=== PATIENT | male | born 1965 | race African-American/Black ===

== ENCOUNTER 2020-04-28 16:08 | Inpatient (IN) | payer OTHER ==
[2020-04-28 16:49] VITALS: BMI 37.8
[2020-04-28] MEDS ORDERED: BISMUTH SUBSALICYLATE 524 MG/30 ML UD PO PRN (17:18)
[2020-04-28] MEDS ORDERED: MENTHOL/PHENOL 1 EACH UD MM PRN (17:18)
[2020-04-28] MEDS ORDERED: MAGNESIUM CITRATE 300 ML BOTTLE PO PRN (17:18)
[2020-04-28] MEDS ORDERED: NICOTINE POLACRILEX 2 MG GUM BUC PRN (17:18)
[2020-04-28] MEDS ORDERED: METHADONE HCL 10 MG TABLET (FOR DETOX USE ONLY) PO ONE (17:18)
[2020-04-28] MEDS ORDERED: cloNIDine HCL 0.1 MG TABLET PO PRN (17:18)
[2020-04-28] MEDS ORDERED: ACETAMINOPHEN 325 MG TABLET (FP) PO PRN ×2 (17:18)
[2020-04-28] MEDS ORDERED: ONDANSETRON *ODT* 4 MG TABLET SL PRN (17:18)
[2020-04-28] MEDS ORDERED: MAGNESIUM HYDROX 2400MG/30ML ORAL SUSPENSION 30 ML CUP PO PRN (17:18)
[2020-04-28] MEDS ORDERED: ALBUTEROL SO4 HFA INHALER IH PRN (17:24)
[2020-04-28] MEDS: hydrOXYzine PAMOATE 25 MG CAPSULE (FP) PO PRN (21:13)
[2020-04-28] MEDS: THIAMINE HCL 100 MG TABLET (FP) PO SCH (21:13)
[2020-04-28] MEDS: MELATONIN 5 MG TABLETS PO SCH (21:16)
[2020-04-29] MEDS ORDERED: METHADONE HCL 5 MG TABLET (FOR DETOX USE ONLY) ONE (09:24)
[2020-04-29] MEDS ORDERED: METHADONE HCL 10 MG TABLET (FOR DETOX USE ONLY) ONE (09:24)
[2020-04-29 09:48] LABS: HEMATOCRIT 41.9 % (35.4-49); HEMOGLOBIN 14.2 GM/dL (11.7-16.9); MCH 31.2 pg (25.7-33.7); MEAN CELL VOLUME 91.8 fl (80-96); MEAN PLT VOLUME 9.2 fl (7.5-11.1); PLATELET COUNT 213 K/MM3 (134-434); RBC 4.57 M/mm3 (4.00-5.60); RDW 15.9 % (11.9-15.9)
[2020-04-29 09:50] LABS: POTASSIUM 4.3 mmol/L (3.5-5.1)
[2020-04-29] MEDS ORDERED: METHADONE (DETOX) 20 MG, METHADONE (DETOX) 5 MG PO ONE (10:00)
[2020-04-29 10:13] LABS: ALBUMIN 3.8 g/dl (3.4-5.0); CALCIUM 8.9 mg/dL (8.5-10.1)
[2020-04-29 10:14] LABS: BLOOD UREA NITROGEN 11.8 mg/dL (7-18)
[2020-04-29 10:17] LABS: CREATININE 1.3 mg/dL (0.55-1.3)
[2020-04-29 10:18] LABS: BILIRUBIN,TOTAL 0.5 mg/dL (0.2-1)
[2020-04-29 10:20] LABS: TOT PROT 7.4 g/dl (6.4-8.2)
[2020-04-29] MEDS: NICOTINE 14 MG/24 HOURS TOPICAL PATCH TD SCH (10:31)
[2020-04-29] MEDS: PANTOPRAZOLE 40 MG TABLET PO SCH (10:31)
[2020-04-29] MEDS: PRENATAL VITAMINS W/ FOLIC ACID TABLET (FP) PO SCH (10:31)
[2020-04-29] MEDS: QUEtiapine FUMARATE 200 MG TABLET PO SCH ×2 (10:32→22:04)
[2020-04-29] MEDS: MAG HYDROX/AL HYDROX/SIMETH 30 ML UNIT-DOSE CUP PO PRN ×2 (11:15→22:06)
[2020-04-29] MEDS: THIAMINE HCL 100 MG TABLET (FP) PO SCH (22:04)
[2020-04-29] MEDS: MELATONIN 5 MG TABLETS PO SCH (22:07)
[2020-04-29] MEDS: IBUPROFEN 400 MG TABLET (FP) PO PRN (23:18)
[2020-04-29] MEDS: METHOCARBAMOL 500 MG TABLET PO PRN (23:18)
[2020-04-30] MEDS ORDERED: METHADONE HCL 10 MG TABLET (FOR DETOX USE ONLY) PO ONE (10:00)
[2020-04-30] MEDS: QUEtiapine FUMARATE 200 MG TABLET PO SCH ×2 (10:08→22:29)
[2020-04-30] MEDS: PRENATAL VITAMINS W/ FOLIC ACID TABLET (FP) PO SCH (10:09)
[2020-04-30] MEDS: PANTOPRAZOLE 40 MG TABLET PO SCH (10:09)
[2020-04-30] MEDS: NICOTINE 14 MG/24 HOURS TOPICAL PATCH TD SCH (10:09)
[2020-04-30] MEDS: METHOCARBAMOL 500 MG TABLET PO PRN (17:43)
[2020-04-30] MEDS: THIAMINE HCL 100 MG TABLET (FP) PO SCH (22:29)
[2020-04-30] MEDS: MELATONIN 5 MG TABLETS PO SCH (22:32)
[2020-04-30] MEDS: IBUPROFEN 400 MG TABLET (FP) PO PRN (22:32)
[2020-05-01] MEDS ORDERED: METHADONE HCL 10 MG TABLET (FOR DETOX USE ONLY) ONE (09:11)
[2020-05-01] MEDS ORDERED: METHADONE HCL 5 MG TABLET (FOR DETOX USE ONLY) ONE (09:11)
[2020-05-01] MEDS ORDERED: METHADONE (DETOX) 10 MG, METHADONE (DETOX) 5 MG PO ONE (10:00)
[2020-05-01] MEDS: QUEtiapine FUMARATE 200 MG TABLET PO SCH ×2 (10:15→22:15)
[2020-05-01] MEDS: PANTOPRAZOLE 40 MG TABLET PO SCH (10:16)
[2020-05-01] MEDS: NICOTINE 14 MG/24 HOURS TOPICAL PATCH TD SCH (10:16)
[2020-05-01] MEDS: PRENATAL VITAMINS W/ FOLIC ACID TABLET (FP) PO SCH (10:16)
[2020-05-01] MEDS: MELATONIN 5 MG TABLETS PO SCH (22:15)
[2020-05-01] MEDS: THIAMINE HCL 100 MG TABLET (FP) PO SCH (22:15)
[2020-05-01] MEDS: METHOCARBAMOL 500 MG TABLET PO PRN (22:17)
[2020-05-01] MEDS: IBUPROFEN 400 MG TABLET (FP) PO PRN (22:17)
[2020-05-02] MEDS: hydrOXYzine PAMOATE 25 MG CAPSULE (FP) PO PRN (05:05)
[2020-05-02] MEDS ORDERED: METHADONE HCL 10 MG TABLET (FOR DETOX USE ONLY) PO ONE (10:00)
[2020-05-02] MEDS: QUEtiapine FUMARATE 200 MG TABLET PO SCH ×2 (10:17→22:14)
[2020-05-02] MEDS: NICOTINE 14 MG/24 HOURS TOPICAL PATCH TD SCH (10:17)
[2020-05-02] MEDS: PANTOPRAZOLE 40 MG TABLET PO SCH (10:17)
[2020-05-02] MEDS: PRENATAL VITAMINS W/ FOLIC ACID TABLET (FP) PO SCH (10:17)
[2020-05-02] MEDS: THIAMINE HCL 100 MG TABLET (FP) PO SCH (22:14)
[2020-05-02] MEDS: METHOCARBAMOL 500 MG TABLET PO PRN (22:15)
[2020-05-02] MEDS: IBUPROFEN 400 MG TABLET (FP) PO PRN (22:15)
[2020-05-02] MEDS: MELATONIN 5 MG TABLETS PO SCH (22:17)
[2020-05-03] MEDS ORDERED: METHADONE HCL 5 MG TABLET (FOR DETOX USE ONLY) PO ONE (06:00)
[2020-05-03 09:32] VITALS: BP 142/84; PULSE 100; TEMP 96.2
== END 2020-05-03 09:04 | disposition home or self-care (01) | DRG 773 ==
LOC: YASAS 16:08 → Y6N 17:16
PROVIDERS: ADMIT Allergy & Immunology; ATTEND Allergy & Immunology
PROC: HZ2ZZZZ Detoxification Services for Substance Abuse Treatment (ICD-10-PCS; principal; 2020-04-28)
DX: F11.23 Opioid dependence with withdrawal (principal); F10.230 Alcohol dependence with withdrawal, uncomplicated; F14.20 Cocaine dependence, uncomplicated; F17.210 Nicotine dependence, cigarettes, uncomplicated; F31.9 Bipolar disorder, unspecified; F19.24 Other psychoactive substance dependence with psychoactive substance-induced mood disorder; F41.9 Anxiety disorder, unspecified; Z21 Asymptomatic human immunodeficiency virus [HIV] infection status; J45.909 Unspecified asthma, uncomplicated; K21.9 Gastro-esophageal reflux disease without esophagitis; M16.0 Bilateral primary osteoarthritis of hip; R73.9 Hyperglycemia, unspecified; M54.5 Low back pain; G89.29 Other chronic pain; E66.9 Obesity, unspecified; Z68.37 Body mass index [BMI] 37.0-37.9, adult; Z99.3 Dependence on wheelchair; Z99.89 Dependence on other enabling machines and devices; Z88.8 Allergy status to other drugs, medicaments and biological substances; Z91.013 Allergy to seafood; Z91.018 Allergy to other foods
CPT/HCPCS: 36415; 80053; 82947; 82962; 85027; 86780; 93005; 93010; C9803; U0003

== ENCOUNTER 2021-07-23 16:16 | Inpatient (IN) | payer OTHER ==
[2021-07-23 17:44] VITALS: BMI 38.0
[2021-07-23] MEDS ORDERED: MENTHOL/PHENOL 1 EACH UD MM PRN (21:32)
[2021-07-23] MEDS ORDERED: MAGNESIUM CITRATE 300 ML BOTTLE PO PRN (21:32)
[2021-07-23] MEDS ORDERED: ACETAMINOPHEN 325 MG TABLET (FP) PO PRN ×2 (21:32)
[2021-07-23] MEDS ORDERED: chlordiazePOXIDE HCL 25 MG CAPSULE PO PRN (21:32)
[2021-07-23] MEDS ORDERED: NICOTINE POLACRILEX 2 MG GUM BUC PRN (21:32)
[2021-07-23] MEDS ORDERED: LOPERAMIDE HCL 2 MG CAPSULE PO PRN (21:32)
[2021-07-23] MEDS ORDERED: MAG HYDROX/AL HYDROX/SIMETH 30 ML UNIT-DOSE CUP PO PRN (21:32)
[2021-07-23] MEDS ORDERED: BISMUTH SUBSALICYLATE 524 MG/30 ML PO PRN (21:32)
[2021-07-23] MEDS ORDERED: MAGNESIUM HYDROX 2400MG/30ML ORAL SUSPENSION 30 ML CUP PO PRN (21:32)
[2021-07-23] MEDS ORDERED: ONDANSETRON *ODT* 4 MG TABLET SL PRN (21:32)
[2021-07-23] MEDS: chlordiazePOXIDE HCL 25 MG CAPSULE PO SCH (22:40)
[2021-07-23] MEDS: THIAMINE HCL 100 MG TABLET (FP) PO SCH (22:41)
[2021-07-23] MEDS: MELATONIN 5 MG TABLETS PO SCH (22:41)
[2021-07-24] MEDS: METHOCARBAMOL 500 MG TABLET PO PRN (06:19)
[2021-07-24] MEDS: IBUPROFEN 400 MG TABLET (FP) PO PRN (06:19)
[2021-07-24] MEDS: chlordiazePOXIDE HCL 25 MG CAPSULE PO SCH ×4 (06:20→23:11)
[2021-07-24] MEDS: NICOTINE 14 MG/24 HOURS TOPICAL PATCH TD SCH (10:16)
[2021-07-24] MEDS: PRENATAL VITAMINS W/ FOLIC ACID TABLET (FP) PO SCH (10:18)
[2021-07-24 10:26] LABS: HEMATOCRIT 39.2 % (35.4-49); HEMOGLOBIN 13.3 GM/dL (11.7-16.9); MCH 30.9 pg (25.7-33.7); MCHC 33.9 g/dl (32.0-35.9); MEAN CELL VOLUME 91.1 fl (80-96); MEAN PLT VOLUME 9.1 fl (7.5-11.1); PLATELET COUNT 193 10^3/uL (134-434); RDW 14.8 % (11.9-15.9); WHITE BLOOD COUNT 4.3 K/mm3 (4.0-10.0)
[2021-07-24] MEDS ORDERED: ALBUTEROL SO4 HFA INHALER IH PRN (11:37)
[2021-07-24 12:17] LABS: ALBUMIN 3.5 g/dl (3.4-5.0); BILIRUBIN,TOTAL 1.4 mg/dL (0.2-1); BLOOD UREA NITROGEN 14.2 mg/dL (7-18); CALCIUM 8.5 mg/dL (8.5-10.1); CREATININE 1.2 mg/dL (0.55-1.3); TOT PROT 6.9 g/dl (6.4-8.2)
[2021-07-24] MEDS: BICTEGRAV/EMTRICIT/TENOFOV (BIKTARVY) 50-200-25 MG TABLET PO SCH (14:48)
[2021-07-24] MEDS: SULFAMETHOXAZOLE/TRIMETHOPRIM 800MG/160MG D.S. TABLET PO SCH (14:48)
[2021-07-24] MEDS: PANTOPRAZOLE 40 MG TABLET PO SCH (14:48)
[2021-07-24] MEDS: ASPIRIN 81 MG CHEWABLE TABLETS PO SCH (14:48)
[2021-07-24] MEDS: MELATONIN 5 MG TABLETS PO SCH (23:10)
[2021-07-24] MEDS: ATORVASTATIN CA 10 MG TABLET (FP) PO SCH (23:10)
[2021-07-24] MEDS: THIAMINE HCL 100 MG TABLET (FP) PO SCH (23:10)
[2021-07-24] MEDS: QUEtiapine FUMARATE 200 MG TABLET PO SCH (23:10)
[2021-07-25] MEDS: chlordiazePOXIDE HCL 25 MG CAPSULE PO SCH ×4 (06:07→22:47)
[2021-07-25] MEDS: BICTEGRAV/EMTRICIT/TENOFOV (BIKTARVY) 50-200-25 MG TABLET PO SCH (10:22)
[2021-07-25] MEDS: ASPIRIN 81 MG CHEWABLE TABLETS PO SCH (10:22)
[2021-07-25] MEDS: PRENATAL VITAMINS W/ FOLIC ACID TABLET (FP) PO SCH (10:22)
[2021-07-25] MEDS: PANTOPRAZOLE 40 MG TABLET PO SCH (10:22)
[2021-07-25] MEDS: SULFAMETHOXAZOLE/TRIMETHOPRIM 800MG/160MG D.S. TABLET PO SCH (10:22)
[2021-07-25] MEDS: NICOTINE 14 MG/24 HOURS TOPICAL PATCH TD SCH (10:26)
[2021-07-25] MEDS: IBUPROFEN 400 MG TABLET (FP) PO PRN (18:00)
[2021-07-25] MEDS: THIAMINE HCL 100 MG TABLET (FP) PO SCH (22:48)
[2021-07-25] MEDS: ATORVASTATIN CA 10 MG TABLET (FP) PO SCH (22:48)
[2021-07-25] MEDS: QUEtiapine FUMARATE 200 MG TABLET PO SCH (22:48)
[2021-07-25] MEDS: MELATONIN 5 MG TABLETS PO SCH (22:48)
[2021-07-25] MEDS: METHOCARBAMOL 500 MG TABLET PO PRN (22:49)
[2021-07-26] MEDS ORDERED: chlordiazePOXIDE HCL 10 MG CAPSULE PO PRN
[2021-07-26] MEDS: chlordiazePOXIDE HCL 10 MG CAPSULE PO SCH ×4 (06:10→23:20)
[2021-07-26] MEDS: BICTEGRAV/EMTRICIT/TENOFOV (BIKTARVY) 50-200-25 MG TABLET PO SCH (10:34)
[2021-07-26] MEDS: PRENATAL VITAMINS W/ FOLIC ACID TABLET (FP) PO SCH (10:43)
[2021-07-26] MEDS: SULFAMETHOXAZOLE/TRIMETHOPRIM 800MG/160MG D.S. TABLET PO SCH (10:43)
[2021-07-26] MEDS: PANTOPRAZOLE 40 MG TABLET PO SCH (10:43)
[2021-07-26] MEDS: ASPIRIN 81 MG CHEWABLE TABLETS PO SCH (10:44)
[2021-07-26 10:59] LABS: BLOOD UREA NITROGEN 10.1 mg/dL (7-18); CALCIUM 8.5 mg/dL (8.5-10.1)
[2021-07-26 11:00] LABS: ALBUMIN 3.1 g/dl (3.4-5.0)
[2021-07-26 11:03] LABS: CREATININE 1.1 mg/dL (0.55-1.3)
[2021-07-26 11:04] LABS: BILIRUBIN,TOTAL 0.6 mg/dL (0.2-1); TOT PROT 6.2 g/dl (6.4-8.2)
[2021-07-26] MEDS: NICOTINE 14 MG/24 HOURS TOPICAL PATCH TD SCH (13:57)
[2021-07-26] MEDS: QUEtiapine FUMARATE 200 MG TABLET PO SCH (23:20)
[2021-07-26] MEDS: ATORVASTATIN CA 10 MG TABLET (FP) PO SCH (23:20)
[2021-07-26] MEDS: MELATONIN 5 MG TABLETS PO SCH (23:21)
[2021-07-26] MEDS: THIAMINE HCL 100 MG TABLET (FP) PO SCH (23:21)
[2021-07-27] MEDS: chlordiazePOXIDE HCL 10 MG CAPSULE PO SCH ×2 (06:49→17:44)
[2021-07-27] MEDS: METHOCARBAMOL 500 MG TABLET PO PRN (06:50)
[2021-07-27] MEDS: ASPIRIN 81 MG CHEWABLE TABLETS PO SCH (10:29)
[2021-07-27] MEDS: BICTEGRAV/EMTRICIT/TENOFOV (BIKTARVY) 50-200-25 MG TABLET PO SCH (10:29)
[2021-07-27] MEDS: NICOTINE 14 MG/24 HOURS TOPICAL PATCH TD SCH (10:29)
[2021-07-27] MEDS: PANTOPRAZOLE 40 MG TABLET PO SCH (10:29)
[2021-07-27] MEDS: SULFAMETHOXAZOLE/TRIMETHOPRIM 800MG/160MG D.S. TABLET PO SCH (10:29)
[2021-07-27] MEDS: PRENATAL VITAMINS W/ FOLIC ACID TABLET (FP) PO SCH (10:29)
[2021-07-27] MEDS: QUEtiapine FUMARATE 200 MG TABLET PO SCH (22:56)
[2021-07-27] MEDS: MELATONIN 5 MG TABLETS PO SCH (22:56)
[2021-07-27] MEDS: ATORVASTATIN CA 10 MG TABLET (FP) PO SCH (22:56)
[2021-07-27] MEDS: THIAMINE HCL 100 MG TABLET (FP) PO SCH (22:56)
[2021-07-28] MEDS ORDERED: chlordiazePOXIDE HCL 10 MG CAPSULE PO ONE (05:00)
[2021-07-28 09:16] VITALS: BP 145/83; PULSE 108; TEMP 96.8
[2021-07-28] MEDS: PRENATAL VITAMINS W/ FOLIC ACID TABLET (FP) PO SCH (10:29)
[2021-07-28] MEDS: SULFAMETHOXAZOLE/TRIMETHOPRIM 800MG/160MG D.S. TABLET PO SCH (10:29)
[2021-07-28] MEDS: ASPIRIN 81 MG CHEWABLE TABLETS PO SCH (10:29)
[2021-07-28] MEDS: BICTEGRAV/EMTRICIT/TENOFOV (BIKTARVY) 50-200-25 MG TABLET PO SCH (10:29)
[2021-07-28] MEDS: PANTOPRAZOLE 40 MG TABLET PO SCH (10:29)
[2021-07-28] MEDS: NICOTINE 14 MG/24 HOURS TOPICAL PATCH TD SCH (10:43)
== END 2021-07-28 10:31 | disposition home or self-care (01) | DRG 775 ==
LOC: YASAS 16:16 → Y3N 20:53
PROVIDERS: ADMIT Allergy & Immunology; ATTEND Allergy & Immunology
PROC: HZ2ZZZZ Detoxification Services for Substance Abuse Treatment (ICD-10-PCS; principal; 2021-07-23)
DX: F10.230 Alcohol dependence with withdrawal, uncomplicated (principal); F17.210 Nicotine dependence, cigarettes, uncomplicated; F31.9 Bipolar disorder, unspecified; F41.9 Anxiety disorder, unspecified; Z21 Asymptomatic human immunodeficiency virus [HIV] infection status; G47.00 Insomnia, unspecified; J45.909 Unspecified asthma, uncomplicated; E78.00 Pure hypercholesterolemia, unspecified; K21.9 Gastro-esophageal reflux disease without esophagitis; M16.0 Bilateral primary osteoarthritis of hip; R73.03 Prediabetes; E66.9 Obesity, unspecified; Z68.38 Body mass index [BMI] 38.0-38.9, adult; Z86.19 Personal history of other infectious and parasitic diseases; Z91.018 Allergy to other foods; Z88.8 Allergy status to other drugs, medicaments and biological substances; Z99.89 Dependence on other enabling machines and devices
CPT/HCPCS: 36415; 80053; 83036; 85027; 86593; 86780; 87811; 93005; 93010; C9803-CS; U0003; U0005

== ENCOUNTER 2021-09-09 10:47 | Inpatient (IN) | payer OTHER ==
[2021-09-09] MEDS ORDERED: NICOTINE 10 MG CARTRIDGE (INHALER) IH PRN (12:14)
[2021-09-09] MEDS ORDERED: DICYCLOMINE HCL 10 MG CAPSULE PO PRN (12:14)
[2021-09-09] MEDS ORDERED: LOPERAMIDE HCL 2 MG CAPSULE PO PRN (12:14)
[2021-09-09] MEDS ORDERED: METHOCARBAMOL 500 MG TABLET PO PRN (12:14)
[2021-09-09] MEDS ORDERED: MAG HYDROX/AL HYDROX/SIMETH 30 ML UNIT-DOSE CUP PO PRN (12:14)
[2021-09-09] MEDS ORDERED: MAGNESIUM HYDROX 2400MG/30ML ORAL SUSPENSION 30 ML CUP PO PRN (12:14)
[2021-09-09] MEDS ORDERED: MAGNESIUM CITRATE 300 ML BOTTLE PO PRN (12:14)
[2021-09-09] MEDS ORDERED: BISMUTH SUBSALICYLATE 524 MG/30 ML PO PRN (12:14)
[2021-09-09] MEDS ORDERED: ONDANSETRON *ODT* 4 MG TABLET SL PRN (12:14)
[2021-09-09] MEDS ORDERED: LORazepam 1 MG TABLET PO PRN (12:14)
[2021-09-09] MEDS ORDERED: ACETAMINOPHEN 325 MG TABLET (FP) PO PRN ×2 (12:14)
[2021-09-09] MEDS ORDERED: NICOTINE POLACRILEX 4 MG GUM BUC PRN (12:14)
[2021-09-09] MEDS ORDERED: ALBUTEROL SO4 HFA INHALER IH PRN (12:17)
[2021-09-09 12:23] VITALS: BMI 36.8
[2021-09-09] MEDS ORDERED: guaiFENesin/D-M SUGAR-FREE/ACLHOL-FREE 118 ML BOTTLE PO PRN (12:33)
[2021-09-09] MEDS ORDERED: guaiFENesin/D-METHORPHAN HB 10 ML UNIT-DOSE CUPS PO PRN ×2 (12:37→12:38)
[2021-09-09] MEDS ORDERED: LORazepam 2 MG TABLET PO ONE (12:45)
[2021-09-09] MEDS: ASPIRIN 81 MG CHEWABLE TABLETS PO SCH (14:04)
[2021-09-09] MEDS: PANTOPRAZOLE 40 MG TABLET PO SCH (14:04)
[2021-09-09] MEDS: SULFAMETHOXAZOLE/TRIMETHOPRIM 800MG/160MG D.S. TABLET PO SCH (14:41)
[2021-09-09] MEDS: BICTEGRAV/EMTRICIT/TENOFOV (BIKTARVY) 50-200-25 MG TABLET PO SCH (14:42)
[2021-09-09] MEDS: LIDOCAINE 5% TOPICAL PATCH TP SCH (15:45)
[2021-09-09] MEDS: LORazepam 2 MG TABLET PO SCH ×2 (18:33→23:00)
[2021-09-09] MEDS: ATORVASTATIN CA 10 MG TABLET (FP) PO SCH (23:00)
[2021-09-09] MEDS: LIDOCAINE PATCH REMOVAL MC SCH (23:00)
[2021-09-09] MEDS: MELATONIN 5 MG TABLETS PO SCH (23:00)
[2021-09-09] MEDS: THIAMINE HCL 100 MG TABLET (FP) PO SCH (23:00)
[2021-09-10] MEDS: LORazepam 2 MG TABLET PO SCH ×4 (05:44→22:30)
[2021-09-10] MEDS: ASPIRIN 81 MG CHEWABLE TABLETS PO SCH (10:42)
[2021-09-10] MEDS: PRENATAL VITAMINS W/ FOLIC ACID TABLET (FP) PO SCH (10:42)
[2021-09-10] MEDS: PANTOPRAZOLE 40 MG TABLET PO SCH (10:42)
[2021-09-10] MEDS: SULFAMETHOXAZOLE/TRIMETHOPRIM 800MG/160MG D.S. TABLET PO SCH (10:42)
[2021-09-10] MEDS: BICTEGRAV/EMTRICIT/TENOFOV (BIKTARVY) 50-200-25 MG TABLET PO SCH (10:42)
[2021-09-10] MEDS: LIDOCAINE 5% TOPICAL PATCH TP SCH (11:46)
[2021-09-10 12:48] LABS: HEMATOCRIT 43.2 % (35.4-49); HEMOGLOBIN 14.3 GM/dL (11.7-16.9); MCH 30.3 pg (25.7-33.7); MCHC 33.1 g/dl (32.0-35.9); MEAN CELL VOLUME 91.6 fl (80-96); MEAN PLT VOLUME 10.1 fl (7.5-11.1); PLATELET COUNT 212 10^3/uL (134-434); RBC 4.72 M/mm3 (4.00-5.60); RDW 14.9 % (11.9-15.9); WHITE BLOOD COUNT 5.2 K/mm3 (4.0-10.0)
[2021-09-10 12:51] LABS: ALBUMIN 3.4 g/dl (3.4-5.0); BLOOD UREA NITROGEN 15.8 mg/dL (7-18)
[2021-09-10 12:54] LABS: CREATININE 1.1 mg/dL (0.55-1.3)
[2021-09-10 12:56] LABS: BILIRUBIN,TOTAL 0.4 mg/dL (0.2-1); TOT PROT 6.8 g/dl (6.4-8.2)
[2021-09-10] MEDS: QUEtiapine FUMARATE 200 MG TABLET PO SCH (22:30)
[2021-09-10] MEDS: MELATONIN 5 MG TABLETS PO SCH (22:30)
[2021-09-10] MEDS: ATORVASTATIN CA 10 MG TABLET (FP) PO SCH (22:30)
[2021-09-10] MEDS: THIAMINE HCL 100 MG TABLET (FP) PO SCH (22:30)
[2021-09-10] MEDS: SODIUM CHLORIDE NASAL SPRAY 44 ML BOTTLE NS SCH (22:35)
[2021-09-10] MEDS: guaiFENesin/D-METHORPHAN HB 10 ML UNIT-DOSE CUPS PO PRN (22:35)
[2021-09-10] MEDS: LIDOCAINE PATCH REMOVAL MC SCH (22:35)
[2021-09-11] MEDS: LORazepam 1 MG TABLET PO SCH ×4 (05:56→23:28)
[2021-09-11] MEDS: PANTOPRAZOLE 40 MG TABLET PO SCH (10:56)
[2021-09-11] MEDS: PRENATAL VITAMINS W/ FOLIC ACID TABLET (FP) PO SCH (10:56)
[2021-09-11] MEDS: SODIUM CHLORIDE NASAL SPRAY 44 ML BOTTLE NS SCH ×2 (10:56→23:30)
[2021-09-11] MEDS: SULFAMETHOXAZOLE/TRIMETHOPRIM 800MG/160MG D.S. TABLET PO SCH (10:56)
[2021-09-11] MEDS: BICTEGRAV/EMTRICIT/TENOFOV (BIKTARVY) 50-200-25 MG TABLET PO SCH (10:56)
[2021-09-11] MEDS: ASPIRIN 81 MG CHEWABLE TABLETS PO SCH (10:56)
[2021-09-11] MEDS: LIDOCAINE 5% TOPICAL PATCH TP SCH (11:02)
[2021-09-11] MEDS ORDERED: INSULIN SLIDING SCALE (NOVOLOG) 1 VIAL SQ SCH (16:30)
[2021-09-11] MEDS: LIDOCAINE PATCH REMOVAL MC SCH (23:30)
[2021-09-11] MEDS: ATORVASTATIN CA 10 MG TABLET (FP) PO SCH (23:30)
[2021-09-11] MEDS: MELATONIN 5 MG TABLETS PO SCH (23:30)
[2021-09-11] MEDS: QUEtiapine FUMARATE 200 MG TABLET PO SCH (23:30)
[2021-09-11] MEDS: THIAMINE HCL 100 MG TABLET (FP) PO SCH (23:31)
[2021-09-12] MEDS ORDERED: LORazepam 0.5 MG TABLET PO PRN
[2021-09-12] MEDS: LORazepam 0.5 MG TABLET PO SCH ×4 (05:39→22:38)
[2021-09-12] MEDS: INSULIN SLIDING SCALE (NOVOLOG) 1 VIAL SQ SCH ×2 (07:37→07:38)
[2021-09-12] MEDS: PRENATAL VITAMINS W/ FOLIC ACID TABLET (FP) PO SCH (10:30)
[2021-09-12] MEDS: SODIUM CHLORIDE NASAL SPRAY 44 ML BOTTLE NS SCH ×2 (10:30→22:38)
[2021-09-12] MEDS: LIDOCAINE 5% TOPICAL PATCH TP SCH (10:30)
[2021-09-12] MEDS: ASPIRIN 81 MG CHEWABLE TABLETS PO SCH (10:31)
[2021-09-12] MEDS: BICTEGRAV/EMTRICIT/TENOFOV (BIKTARVY) 50-200-25 MG TABLET PO SCH (10:31)
[2021-09-12] MEDS: PANTOPRAZOLE 40 MG TABLET PO SCH (10:31)
[2021-09-12] MEDS: SULFAMETHOXAZOLE/TRIMETHOPRIM 800MG/160MG D.S. TABLET PO SCH (10:31)
[2021-09-12] MEDS: THIAMINE HCL 100 MG TABLET (FP) PO SCH (22:35)
[2021-09-12] MEDS: ATORVASTATIN CA 10 MG TABLET (FP) PO SCH (22:35)
[2021-09-12] MEDS: QUEtiapine FUMARATE 200 MG TABLET PO SCH (22:35)
[2021-09-12] MEDS: MELATONIN 5 MG TABLETS PO SCH (22:38)
[2021-09-12] MEDS: LIDOCAINE PATCH REMOVAL MC SCH (22:38)
[2021-09-13] MEDS: BENZOCAINE/MENTHOL (CHLORASEPTIC ) LOZENGE MM PRN ×2 (03:09→10:23)
[2021-09-13] MEDS: guaiFENesin/D-METHORPHAN HB 10 ML UNIT-DOSE CUPS PO PRN (03:10)
[2021-09-13] MEDS ORDERED: LORazepam 0.5 MG TABLET PO ONE (05:00)
[2021-09-13] MEDS: INSULIN SLIDING SCALE (NOVOLOG) 1 VIAL SQ SCH (06:00)
[2021-09-13 09:29] VITALS: BP 138/86; PULSE 90; TEMP 97.3
[2021-09-13] MEDS: BICTEGRAV/EMTRICIT/TENOFOV (BIKTARVY) 50-200-25 MG TABLET PO SCH (10:22)
[2021-09-13] MEDS: ASPIRIN 81 MG CHEWABLE TABLETS PO SCH (10:22)
[2021-09-13] MEDS: SULFAMETHOXAZOLE/TRIMETHOPRIM 800MG/160MG D.S. TABLET PO SCH (10:22)
[2021-09-13] MEDS: PRENATAL VITAMINS W/ FOLIC ACID TABLET (FP) PO SCH (10:22)
[2021-09-13] MEDS: PANTOPRAZOLE 40 MG TABLET PO SCH (10:22)
[2021-09-13] MEDS: LIDOCAINE 5% TOPICAL PATCH TP SCH (10:23)
[2021-09-13] MEDS: SODIUM CHLORIDE NASAL SPRAY 44 ML BOTTLE NS SCH (10:23)
== END 2021-09-13 12:20 | disposition other institution (70) | DRG 774 ==
LOC: YASAS 10:47 → Y6N 12:46
PROVIDERS: ADMIT Allergy & Immunology; ATTEND Surgery
PROC: HZ2ZZZZ Detoxification Services for Substance Abuse Treatment (ICD-10-PCS; principal; 2021-09-09)
DX: F10.230 Alcohol dependence with withdrawal, uncomplicated (principal); F14.20 Cocaine dependence, uncomplicated; F17.213 Nicotine dependence, cigarettes, with withdrawal; F31.9 Bipolar disorder, unspecified; F41.9 Anxiety disorder, unspecified; Z21 Asymptomatic human immunodeficiency virus [HIV] infection status; J45.909 Unspecified asthma, uncomplicated; K21.9 Gastro-esophageal reflux disease without esophagitis; M16.11 Unilateral primary osteoarthritis, right hip; M54.50 Low back pain, unspecified; R73.9 Hyperglycemia, unspecified; E66.9 Obesity, unspecified; Z68.36 Body mass index [BMI] 36.0-36.9, adult; Z86.19 Personal history of other infectious and parasitic diseases; Z99.89 Dependence on other enabling machines and devices; Z88.8 Allergy status to other drugs, medicaments and biological substances; Z91.013 Allergy to seafood; Z91.018 Allergy to other foods
CPT/HCPCS: 36415; 80053; 82962; 83036; 85027; 86593; 86780; C9803-CS; Q0162; U0003; U0005

== ENCOUNTER 2021-09-13 12:30 | Inpatient (IN) | payer OTHER ==
[2021-09-13] MEDS ORDERED: MAG HYDROX/AL HYDROX/SIMETH 30 ML UNIT-DOSE CUP PO PRN (13:10)
[2021-09-13] MEDS ORDERED: P-EPHED 60MG/TRIPROLIDI 2.5MG TABLET PO PRN (13:10)
[2021-09-13] MEDS ORDERED: MAGNESIUM CITRATE 300 ML BOTTLE PO PRN (13:10)
[2021-09-13] MEDS ORDERED: NICOTINE 10 MG CARTRIDGE (INHALER) IH PRN (13:10)
[2021-09-13] MEDS ORDERED: MAGNESIUM HYDROX 2400MG/30ML ORAL SUSPENSION 30 ML CUP PO PRN (13:10)
[2021-09-13] MEDS ORDERED: LOPERAMIDE HCL 2 MG CAPSULE PO PRN (13:10)
[2021-09-13] MEDS ORDERED: hydrOXYzine PAMOATE 25 MG CAPSULE (FP) PO PRN (13:10)
[2021-09-13] MEDS ORDERED: ALBUTEROL SO4 HFA INHALER IH PRN (13:12)
[2021-09-13] MEDS ORDERED: NICOTINE POLACRILEX 4 MG GUM BUC PRN (13:17)
[2021-09-13] MEDS: BENZOCAINE/MENTHOL (CHLORASEPTIC ) LOZENGE MM PRN ×2 (14:36→20:45)
[2021-09-13] MEDS: guaiFENesin 200 MG/10 ML 10 ML UNIT-DOSE CUPS PO PRN (20:44)
[2021-09-13] MEDS: ATORVASTATIN CA 10 MG TABLET (FP) PO SCH (21:12)
[2021-09-13] MEDS: MELATONIN 5 MG TABLETS PO SCH (21:12)
[2021-09-13] MEDS: QUEtiapine FUMARATE 200 MG TABLET PO SCH (21:12)
[2021-09-13] MEDS: THIAMINE HCL 100 MG TABLET (FP) PO SCH (21:12)
[2021-09-14] MEDS: BICTEGRAV/EMTRICIT/TENOFOV (BIKTARVY) 50-200-25 MG TABLET PO SCH (07:11)
[2021-09-14] MEDS: BENZOCAINE/MENTHOL (CHLORASEPTIC ) LOZENGE MM PRN ×2 (07:11→14:04)
[2021-09-14] MEDS: ASPIRIN 81 MG CHEWABLE TABLETS PO SCH (09:42)
[2021-09-14] MEDS: NICOTINE 7 MG/24 HOURS TOPICAL PATCH TD SCH (09:43)
[2021-09-14] MEDS: SULFAMETHOXAZOLE/TRIMETHOPRIM 800MG/160MG D.S. TABLET PO SCH (09:43)
[2021-09-14] MEDS: PRENATAL VITAMINS W/ FOLIC ACID TABLET (FP) PO SCH (09:43)
[2021-09-14] MEDS: PANTOPRAZOLE 40 MG TABLET PO SCH (09:43)
[2021-09-14] MEDS: IBUPROFEN 400 MG TABLET (FP) PO PRN (16:46)
[2021-09-14] MEDS: QUEtiapine FUMARATE 200 MG TABLET PO SCH (21:02)
[2021-09-14] MEDS: ATORVASTATIN CA 10 MG TABLET (FP) PO SCH (21:03)
[2021-09-14] MEDS: MELATONIN 5 MG TABLETS PO SCH (21:03)
[2021-09-14] MEDS: THIAMINE HCL 100 MG TABLET (FP) PO SCH (21:03)
[2021-09-15] MEDS: SULFAMETHOXAZOLE/TRIMETHOPRIM 800MG/160MG D.S. TABLET PO SCH (10:40)
[2021-09-15] MEDS: PANTOPRAZOLE 40 MG TABLET PO SCH (10:40)
[2021-09-15] MEDS: ASPIRIN 81 MG CHEWABLE TABLETS PO SCH (10:40)
[2021-09-15] MEDS: PRENATAL VITAMINS W/ FOLIC ACID TABLET (FP) PO SCH (10:41)
[2021-09-15] MEDS: NICOTINE 7 MG/24 HOURS TOPICAL PATCH TD SCH (10:41)
[2021-09-15] MEDS: BENZOCAINE/MENTHOL (CHLORASEPTIC ) LOZENGE MM PRN ×2 (10:43→21:17)
[2021-09-15] MEDS: IBUPROFEN 400 MG TABLET (FP) PO PRN (18:33)
[2021-09-15] MEDS: QUEtiapine FUMARATE 200 MG TABLET PO SCH (21:15)
[2021-09-15] MEDS: ATORVASTATIN CA 10 MG TABLET (FP) PO SCH (21:15)
[2021-09-15] MEDS: MELATONIN 5 MG TABLETS PO SCH (21:15)
[2021-09-15] MEDS: THIAMINE HCL 100 MG TABLET (FP) PO SCH (21:15)
[2021-09-16] MEDS: IBUPROFEN 400 MG TABLET (FP) PO PRN ×2 (01:30→21:00)
[2021-09-16] MEDS: BENZOCAINE/MENTHOL (CHLORASEPTIC ) LOZENGE MM PRN ×3 (01:31→10:02)
[2021-09-16] MEDS: ASPIRIN 81 MG CHEWABLE TABLETS PO SCH (09:58)
[2021-09-16] MEDS: SULFAMETHOXAZOLE/TRIMETHOPRIM 800MG/160MG D.S. TABLET PO SCH (09:58)
[2021-09-16] MEDS: PANTOPRAZOLE 40 MG TABLET PO SCH (09:58)
[2021-09-16] MEDS: NICOTINE 7 MG/24 HOURS TOPICAL PATCH TD SCH (10:00)
[2021-09-16] MEDS: BICTEGRAV/EMTRICIT/TENOFOV (BIKTARVY) 50-200-25 MG TABLET PO SCH (10:00)
[2021-09-16] MEDS: PRENATAL VITAMINS W/ FOLIC ACID TABLET (FP) PO SCH (10:00)
[2021-09-16] MEDS: QUEtiapine FUMARATE 200 MG TABLET PO SCH (21:00)
[2021-09-16] MEDS: MELATONIN 5 MG TABLETS PO SCH (21:00)
[2021-09-16] MEDS: ATORVASTATIN CA 10 MG TABLET (FP) PO SCH (21:00)
[2021-09-16] MEDS: THIAMINE HCL 100 MG TABLET (FP) PO SCH (21:00)
[2021-09-17] MEDS: IBUPROFEN 400 MG TABLET (FP) PO PRN (06:34)
[2021-09-17] MEDS: BICTEGRAV/EMTRICIT/TENOFOV (BIKTARVY) 50-200-25 MG TABLET PO SCH ×2 (07:15→08:07)
[2021-09-17] MEDS: PANTOPRAZOLE 40 MG TABLET PO SCH (10:43)
[2021-09-17] MEDS: SULFAMETHOXAZOLE/TRIMETHOPRIM 800MG/160MG D.S. TABLET PO SCH (10:43)
[2021-09-17] MEDS: ASPIRIN 81 MG CHEWABLE TABLETS PO SCH (10:43)
[2021-09-17] MEDS: PRENATAL VITAMINS W/ FOLIC ACID TABLET (FP) PO SCH (10:43)
[2021-09-17] MEDS: NICOTINE 7 MG/24 HOURS TOPICAL PATCH TD SCH (10:44)
[2021-09-17] MEDS: THIAMINE HCL 100 MG TABLET (FP) PO SCH (21:09)
[2021-09-17] MEDS: QUEtiapine FUMARATE 200 MG TABLET PO SCH (21:09)
[2021-09-17] MEDS: ATORVASTATIN CA 10 MG TABLET (FP) PO SCH (21:09)
[2021-09-17] MEDS: MELATONIN 5 MG TABLETS PO SCH (21:09)
[2021-09-17] MEDS: ACETAMINOPHEN 325 MG TABLET (FP) PO PRN (21:10)
[2021-09-18] MEDS: BICTEGRAV/EMTRICIT/TENOFOV (BIKTARVY) 50-200-25 MG TABLET PO SCH (07:08)
[2021-09-18] MEDS: BENZOCAINE/MENTHOL (CHLORASEPTIC ) LOZENGE MM PRN (07:08)
[2021-09-18] MEDS: SULFAMETHOXAZOLE/TRIMETHOPRIM 800MG/160MG D.S. TABLET PO SCH (09:50)
[2021-09-18] MEDS: PANTOPRAZOLE 40 MG TABLET PO SCH (09:50)
[2021-09-18] MEDS: ASPIRIN 81 MG CHEWABLE TABLETS PO SCH (09:50)
[2021-09-18] MEDS: PRENATAL VITAMINS W/ FOLIC ACID TABLET (FP) PO SCH (09:50)
[2021-09-18] MEDS: NICOTINE 7 MG/24 HOURS TOPICAL PATCH TD SCH (09:50)
[2021-09-18] MEDS: LIDOCAINE 5% TOPICAL PATCH TP SCH (14:12)
[2021-09-18] MEDS: ATORVASTATIN CA 10 MG TABLET (FP) PO SCH (21:33)
[2021-09-18] MEDS: QUEtiapine FUMARATE 200 MG TABLET PO SCH (21:33)
[2021-09-18] MEDS: MELATONIN 5 MG TABLETS PO SCH (21:33)
[2021-09-18] MEDS: THIAMINE HCL 100 MG TABLET (FP) PO SCH (21:33)
[2021-09-18] MEDS: ACETAMINOPHEN 325 MG TABLET (FP) PO PRN (21:33)
[2021-09-18] MEDS: LIDOCAINE PATCH REMOVAL MC SCH (21:34)
[2021-09-19] MEDS: BENZOCAINE/MENTHOL (CHLORASEPTIC ) LOZENGE MM PRN ×2 (06:27→21:14)
[2021-09-19] MEDS: BICTEGRAV/EMTRICIT/TENOFOV (BIKTARVY) 50-200-25 MG TABLET PO SCH (07:08)
[2021-09-19] MEDS: ASPIRIN 81 MG CHEWABLE TABLETS PO SCH (10:32)
[2021-09-19] MEDS: PANTOPRAZOLE 40 MG TABLET PO SCH (10:32)
[2021-09-19] MEDS: LIDOCAINE 5% TOPICAL PATCH TP SCH (10:32)
[2021-09-19] MEDS: NICOTINE 7 MG/24 HOURS TOPICAL PATCH TD SCH (10:32)
[2021-09-19] MEDS: PRENATAL VITAMINS W/ FOLIC ACID TABLET (FP) PO SCH (10:32)
[2021-09-19] MEDS: SULFAMETHOXAZOLE/TRIMETHOPRIM 800MG/160MG D.S. TABLET PO SCH (10:32)
[2021-09-19] MEDS: ATORVASTATIN CA 10 MG TABLET (FP) PO SCH (21:13)
[2021-09-19] MEDS: QUEtiapine FUMARATE 200 MG TABLET PO SCH (21:13)
[2021-09-19] MEDS: MELATONIN 5 MG TABLETS PO SCH (21:13)
[2021-09-19] MEDS: THIAMINE HCL 100 MG TABLET (FP) PO SCH (21:13)
[2021-09-19] MEDS: LIDOCAINE PATCH REMOVAL MC SCH (21:14)
[2021-09-20] MEDS: ACETAMINOPHEN 325 MG TABLET (FP) PO PRN (02:32)
[2021-09-20] MEDS: BENZOCAINE/MENTHOL (CHLORASEPTIC ) LOZENGE MM PRN ×2 (06:27→21:04)
[2021-09-20] MEDS: BICTEGRAV/EMTRICIT/TENOFOV (BIKTARVY) 50-200-25 MG TABLET PO SCH (07:11)
[2021-09-20] MEDS: SULFAMETHOXAZOLE/TRIMETHOPRIM 800MG/160MG D.S. TABLET PO SCH (09:48)
[2021-09-20] MEDS: ASPIRIN 81 MG CHEWABLE TABLETS PO SCH (09:48)
[2021-09-20] MEDS: PRENATAL VITAMINS W/ FOLIC ACID TABLET (FP) PO SCH (09:48)
[2021-09-20] MEDS: PANTOPRAZOLE 40 MG TABLET PO SCH (09:49)
[2021-09-20] MEDS: NICOTINE 7 MG/24 HOURS TOPICAL PATCH TD SCH (09:49)
[2021-09-20] MEDS: LIDOCAINE 5% TOPICAL PATCH TP SCH (09:49)
[2021-09-20] MEDS: IBUPROFEN 400 MG TABLET (FP) PO PRN (21:03)
[2021-09-20] MEDS: THIAMINE HCL 100 MG TABLET (FP) PO SCH (21:03)
[2021-09-20] MEDS: MELATONIN 5 MG TABLETS PO SCH (21:03)
[2021-09-20] MEDS: ATORVASTATIN CA 10 MG TABLET (FP) PO SCH (21:03)
[2021-09-20] MEDS: QUEtiapine FUMARATE 200 MG TABLET PO SCH (21:03)
[2021-09-20] MEDS: LIDOCAINE PATCH REMOVAL MC SCH (21:04)
[2021-09-21] MEDS: BICTEGRAV/EMTRICIT/TENOFOV (BIKTARVY) 50-200-25 MG TABLET PO SCH (07:04)
[2021-09-21] MEDS: PRENATAL VITAMINS W/ FOLIC ACID TABLET (FP) PO SCH (10:21)
[2021-09-21] MEDS: SULFAMETHOXAZOLE/TRIMETHOPRIM 800MG/160MG D.S. TABLET PO SCH (10:21)
[2021-09-21] MEDS: LIDOCAINE 5% TOPICAL PATCH TP SCH (10:21)
[2021-09-21] MEDS: PANTOPRAZOLE 40 MG TABLET PO SCH (10:21)
[2021-09-21] MEDS: ASPIRIN 81 MG CHEWABLE TABLETS PO SCH (10:21)
[2021-09-21] MEDS: NICOTINE 7 MG/24 HOURS TOPICAL PATCH TD SCH (10:22)
[2021-09-21] MEDS: IBUPROFEN 400 MG TABLET (FP) PO PRN (21:22)
[2021-09-21] MEDS: ATORVASTATIN CA 10 MG TABLET (FP) PO SCH (21:22)
[2021-09-21] MEDS: QUEtiapine FUMARATE 200 MG TABLET PO SCH (21:22)
[2021-09-21] MEDS: MELATONIN 5 MG TABLETS PO SCH (21:22)
[2021-09-21] MEDS: THIAMINE HCL 100 MG TABLET (FP) PO SCH (21:22)
[2021-09-21] MEDS: LIDOCAINE PATCH REMOVAL MC SCH (21:23)
[2021-09-22] MEDS: BICTEGRAV/EMTRICIT/TENOFOV (BIKTARVY) 50-200-25 MG TABLET PO SCH (07:11)
[2021-09-22] MEDS: ASPIRIN 81 MG CHEWABLE TABLETS PO SCH (10:16)
[2021-09-22] MEDS: PANTOPRAZOLE 40 MG TABLET PO SCH (10:16)
[2021-09-22] MEDS: SULFAMETHOXAZOLE/TRIMETHOPRIM 800MG/160MG D.S. TABLET PO SCH (10:16)
[2021-09-22] MEDS: PRENATAL VITAMINS W/ FOLIC ACID TABLET (FP) PO SCH (10:16)
[2021-09-22] MEDS: LIDOCAINE 5% TOPICAL PATCH TP SCH (10:17)
[2021-09-22] MEDS: NICOTINE 7 MG/24 HOURS TOPICAL PATCH TD SCH (10:18)
[2021-09-22] MEDS: QUEtiapine FUMARATE 200 MG TABLET PO SCH (21:30)
[2021-09-22] MEDS: THIAMINE HCL 100 MG TABLET (FP) PO SCH (21:30)
[2021-09-22] MEDS: ATORVASTATIN CA 10 MG TABLET (FP) PO SCH (21:30)
[2021-09-22] MEDS: MELATONIN 5 MG TABLETS PO SCH (21:30)
[2021-09-22] MEDS: LIDOCAINE PATCH REMOVAL MC SCH (21:31)
[2021-09-23] MEDS: BICTEGRAV/EMTRICIT/TENOFOV (BIKTARVY) 50-200-25 MG TABLET PO SCH (07:56)
[2021-09-23] MEDS: PRENATAL VITAMINS W/ FOLIC ACID TABLET (FP) PO SCH (10:02)
[2021-09-23] MEDS: ASPIRIN 81 MG CHEWABLE TABLETS PO SCH (10:02)
[2021-09-23] MEDS: SULFAMETHOXAZOLE/TRIMETHOPRIM 800MG/160MG D.S. TABLET PO SCH (10:02)
[2021-09-23] MEDS: LIDOCAINE 5% TOPICAL PATCH TP SCH (10:02)
[2021-09-23] MEDS: NICOTINE 7 MG/24 HOURS TOPICAL PATCH TD SCH (10:02)
[2021-09-23] MEDS: PANTOPRAZOLE 40 MG TABLET PO SCH (10:02)
[2021-09-23] MEDS: ATORVASTATIN CA 10 MG TABLET (FP) PO SCH (21:20)
[2021-09-23] MEDS: QUEtiapine FUMARATE 200 MG TABLET PO SCH (21:20)
[2021-09-23] MEDS: MELATONIN 5 MG TABLETS PO SCH (21:20)
[2021-09-23] MEDS: THIAMINE HCL 100 MG TABLET (FP) PO SCH (21:20)
[2021-09-23] MEDS: IBUPROFEN 400 MG TABLET (FP) PO PRN (21:21)
[2021-09-23] MEDS: LIDOCAINE PATCH REMOVAL MC SCH (21:22)
[2021-09-24] MEDS: BENZOCAINE/MENTHOL (CHLORASEPTIC ) LOZENGE MM PRN (06:06)
[2021-09-24] MEDS: BICTEGRAV/EMTRICIT/TENOFOV (BIKTARVY) 50-200-25 MG TABLET PO SCH (07:17)
[2021-09-24] MEDS: PANTOPRAZOLE 40 MG TABLET PO SCH (09:59)
[2021-09-24] MEDS: PRENATAL VITAMINS W/ FOLIC ACID TABLET (FP) PO SCH (09:59)
[2021-09-24] MEDS: ASPIRIN 81 MG CHEWABLE TABLETS PO SCH (09:59)
[2021-09-24] MEDS: SULFAMETHOXAZOLE/TRIMETHOPRIM 800MG/160MG D.S. TABLET PO SCH (09:59)
[2021-09-24] MEDS: LIDOCAINE 5% TOPICAL PATCH TP SCH (10:00)
[2021-09-24] MEDS: NICOTINE 7 MG/24 HOURS TOPICAL PATCH TD SCH (10:21)
[2021-09-24] MEDS ORDERED: HYDROCORTISONE 0.5% TOPICAL CREAM 30 GM TUBE TP PRN (19:41)
[2021-09-24] MEDS: LIDOCAINE PATCH REMOVAL MC SCH (21:07)
[2021-09-24] MEDS: QUEtiapine FUMARATE 200 MG TABLET PO SCH (21:07)
[2021-09-24] MEDS: THIAMINE HCL 100 MG TABLET (FP) PO SCH (21:07)
[2021-09-24] MEDS: ATORVASTATIN CA 10 MG TABLET (FP) PO SCH (21:07)
[2021-09-24] MEDS: MELATONIN 5 MG TABLETS PO SCH (21:09)
[2021-09-25] MEDS: BENZOCAINE/MENTHOL (CHLORASEPTIC ) LOZENGE MM PRN (06:59)
[2021-09-25] MEDS: BICTEGRAV/EMTRICIT/TENOFOV (BIKTARVY) 50-200-25 MG TABLET PO SCH (07:03)
[2021-09-25] MEDS: LIDOCAINE 5% TOPICAL PATCH TP SCH (09:52)
[2021-09-25] MEDS: PANTOPRAZOLE 40 MG TABLET PO SCH (09:52)
[2021-09-25] MEDS: SULFAMETHOXAZOLE/TRIMETHOPRIM 800MG/160MG D.S. TABLET PO SCH (09:52)
[2021-09-25] MEDS: PRENATAL VITAMINS W/ FOLIC ACID TABLET (FP) PO SCH (09:52)
[2021-09-25] MEDS: ASPIRIN 81 MG CHEWABLE TABLETS PO SCH (09:52)
[2021-09-25] MEDS: NICOTINE 7 MG/24 HOURS TOPICAL PATCH TD SCH (09:53)
[2021-09-25] MEDS: MELATONIN 5 MG TABLETS PO SCH (21:14)
[2021-09-25] MEDS: QUEtiapine FUMARATE 200 MG TABLET PO SCH (21:14)
[2021-09-25] MEDS: ATORVASTATIN CA 10 MG TABLET (FP) PO SCH (21:14)
[2021-09-25] MEDS: THIAMINE HCL 100 MG TABLET (FP) PO SCH (21:14)
[2021-09-25] MEDS: IBUPROFEN 400 MG TABLET (FP) PO PRN (21:14)
[2021-09-25] MEDS: LIDOCAINE PATCH REMOVAL MC SCH (21:15)
[2021-09-26] MEDS: BENZOCAINE/MENTHOL (CHLORASEPTIC ) LOZENGE MM PRN (06:45)
[2021-09-26] MEDS: BICTEGRAV/EMTRICIT/TENOFOV (BIKTARVY) 50-200-25 MG TABLET PO SCH (07:21)
[2021-09-26] MEDS: PANTOPRAZOLE 40 MG TABLET PO SCH (09:43)
[2021-09-26] MEDS: PRENATAL VITAMINS W/ FOLIC ACID TABLET (FP) PO SCH (09:43)
[2021-09-26] MEDS: SULFAMETHOXAZOLE/TRIMETHOPRIM 800MG/160MG D.S. TABLET PO SCH (09:43)
[2021-09-26] MEDS: ASPIRIN 81 MG CHEWABLE TABLETS PO SCH (09:43)
[2021-09-26] MEDS: LIDOCAINE 5% TOPICAL PATCH TP SCH (10:31)
[2021-09-26] MEDS: NICOTINE 7 MG/24 HOURS TOPICAL PATCH TD SCH (10:32)
[2021-09-26] MEDS: THIAMINE HCL 100 MG TABLET (FP) PO SCH (21:15)
[2021-09-26] MEDS: MELATONIN 5 MG TABLETS PO SCH (21:15)
[2021-09-26] MEDS: ATORVASTATIN CA 10 MG TABLET (FP) PO SCH (21:15)
[2021-09-26] MEDS: LIDOCAINE PATCH REMOVAL MC SCH (21:15)
[2021-09-26] MEDS: QUEtiapine FUMARATE 200 MG TABLET PO SCH (21:16)
[2021-09-27] MEDS: guaiFENesin 200 MG/10 ML 10 ML UNIT-DOSE CUPS PO PRN (06:09)
[2021-09-27] MEDS: BENZOCAINE/MENTHOL (CHLORASEPTIC ) LOZENGE MM PRN (06:12)
[2021-09-27] MEDS: BICTEGRAV/EMTRICIT/TENOFOV (BIKTARVY) 50-200-25 MG TABLET PO SCH (07:07)
[2021-09-27 09:04] VITALS: BP 119/69; PULSE 94; TEMP 97.1
[2021-09-27] MEDS: PRENATAL VITAMINS W/ FOLIC ACID TABLET (FP) PO SCH (10:14)
[2021-09-27] MEDS: PANTOPRAZOLE 40 MG TABLET PO SCH (10:14)
[2021-09-27] MEDS: ASPIRIN 81 MG CHEWABLE TABLETS PO SCH (10:14)
[2021-09-27] MEDS: SULFAMETHOXAZOLE/TRIMETHOPRIM 800MG/160MG D.S. TABLET PO SCH (10:15)
[2021-09-27] MEDS: LIDOCAINE 5% TOPICAL PATCH TP SCH (10:15)
[2021-09-27] MEDS: NICOTINE 7 MG/24 HOURS TOPICAL PATCH TD SCH (10:15)
== END 2021-09-27 10:30 | disposition home or self-care (01) | DRG 772 ==
LOC: YASAS 12:30 → Y3W 12:33
PROVIDERS: ADMIT Allergy & Immunology; ATTEND Psychiatry & Neurology Pain Medicine
PROC: HZ42ZZZ Group Counseling for Substance Abuse Treatment, Cognitive-Behavioral (ICD-10-PCS; principal; 2021-09-13)
DX: F10.20 Alcohol dependence, uncomplicated (principal); F17.210 Nicotine dependence, cigarettes, uncomplicated; F41.9 Anxiety disorder, unspecified; Z21 Asymptomatic human immunodeficiency virus [HIV] infection status; E78.5 Hyperlipidemia, unspecified; J45.909 Unspecified asthma, uncomplicated; K21.9 Gastro-esophageal reflux disease without esophagitis; M54.50 Low back pain, unspecified; M16.0 Bilateral primary osteoarthritis of hip; G89.29 Other chronic pain; Z88.8 Allergy status to other drugs, medicaments and biological substances; Z91.013 Allergy to seafood

== ENCOUNTER 2023-03-19 18:54 | Observation (INO) | payer OTHER ==
[2023-03-19] MEDS ORDERED: ACETAMINOPHEN INJECTION 100 ML IVPB ONE (20:34)
[2023-03-19] MEDS ORDERED: ONDANSETRON 4 MG/2 ML VIAL ONE (20:34)
[2023-03-19] MEDS ORDERED: FAMOTIDINE 20 MG/50 ML IVPB 20 MG/50 ML MG IVPB ONE (20:34)
[2023-03-19] MEDS: ONDANSETRON 4 MG/2 ML VIAL IVPUSH ONE (20:50)
[2023-03-19] MEDS: SODIUM CHLORIDE 0.9% 500 ML INFUS.BAG IV ONE (21:01)
[2023-03-19] MEDS: FAMOTIDINE 20 MG/50 ML IVPB 20 MG/50 ML MG IVPB ONE (21:03)
[2023-03-19] MEDS: ACETAMINOPHEN 1000 MG/100 ML BAG IVPB ONE (21:03)
[2023-03-19 21:09] LABS: BASO % 0.3 % (0-2.0); EOS % 0.6 % (0-4.5); HEMATOCRIT 39.7 % (35.4-49); HEMOGLOBIN 13.8 GM/dL (11.7-16.9); LYMPH % 10.3 % (8-40); MCHC 34.8 g/dl (32.0-35.9); MEAN CELL VOLUME 89.1 fl (80-96); MEAN PLT VOLUME 8.7 fl (7.5-11.1); MONO % 7.7 % (3.8-10.2); NEUT % 81.1 % (42.8-82.8); PLATELET COUNT 357 10^3/uL (134-434); RBC 4.46 M/mm3 (4.00-5.60); RDW 16.1 % (11.9-15.9); WHITE BLOOD COUNT 10.8 K/mm3 (4.0-10.0)
[2023-03-19 21:38] LABS: INR 0.98 (0.83-1.09); PROTHROMBIN TIME (PATIENT) 11.4 SEC (9.7-13.0)
[2023-03-19 21:41] LABS: ACTIVATED PTT 28.3 SECONDS (25.2-36.5)
[2023-03-19 21:52] LABS: POTASSIUM 4.2 mmol/L (3.5-5.1)
[2023-03-19 21:55] LABS: ALBUMIN 4.3 g/dl (3.4-5.0); BLOOD UREA NITROGEN 12.1 mg/dL (7-18); CALCIUM 9.8 mg/dL (8.5-10.1); MAGNESIUM 2.6 mg/dL (1.8-2.4)
[2023-03-19 21:57] LABS: CREATININE 1.3 mg/dL (0.55-1.3)
[2023-03-19 21:59] LABS: BILIRUBIN,TOTAL 0.8 mg/dL (0.2-1); TOT PROT 8.1 g/dl (6.4-8.2)
[2023-03-20] MEDS: MAG HYDROX/AL HYDROX/SIMETH 30 ML UNIT-DOSE CUP PO ONE (01:51)
[2023-03-20] MEDS ORDERED: ALBUTEROL SO4 0.083% IH SOL 2.5 MG/3 ML VIAL.NEB. NEB PRN (05:08)
[2023-03-20] MEDS: FOLIC ACID INJECTION - 1 MG, THIAMINE HCL 100 MG, MULTIVIT INJECTION ADULT 10 ML in SOD... IVPB ONE (05:13)
[2023-03-20] MEDS: POLYETHYLENE GLYCOL (HEALTHYLAX) 3350 17 GM PACKET PO ONE (05:13)
[2023-03-20] MEDS ORDERED: LORazepam 1 MG TABLET PO PRN (06:26)
[2023-03-20 06:44] LABS: HEMATOCRIT 38.4 % (35.4-49); HEMOGLOBIN 12.5 GM/dL (11.7-16.9); MCH 30.1 pg (25.7-33.7); MCHC 32.5 g/dl (32.0-35.9); MEAN CELL VOLUME 92.5 fl (80-96); MEAN PLT VOLUME 9.5 fl (7.5-11.1); PLATELET COUNT 209 10^3/uL (134-434); RBC 4.15 M/mm3 (4.00-5.60); RDW 15.6 % (11.9-15.9); WHITE BLOOD COUNT 7.8 K/mm3 (4.0-10.0)
[2023-03-20 06:51] LABS: CALCIUM 8.9 mg/dL (8.5-10.1)
[2023-03-20 06:52] LABS: ALBUMIN 3.9 g/dl (3.4-5.0); BLOOD UREA NITROGEN 13.4 mg/dL (7-18); MAGNESIUM 2.7 mg/dL (1.8-2.4)
[2023-03-20 06:56] LABS: BILIRUBIN,TOTAL 1.5 mg/dL (0.2-1); CREATININE 1.1 mg/dL (0.55-1.3); PHOSPHOROUS 3.2 mg/dL (2.5-4.9); TOT PROT 7.1 g/dl (6.4-8.2)
[2023-03-20 08:38] LABS: EPI CELLS 2 /uL (0-25.1); HYALINE CASTS 1 /uL (0-3.1); URINE APPEARANCE CLEAR; URINE BACTERIA 65 /uL (0-1359); URINE BILIRUBIN NEGATIVE (NEGATIVE); URINE COLOR YELLOW; URINE GLUCOSE (UA) NEGATIVE (NEGATIVE); URINE KETONE NEGATIVE (NEGATIVE); URINE LEUK ESTERASE NEGATIVE (NEGATIVE); URINE NITRITE NEGATIVE (NEGATIVE); URINE PROTEIN 1+ (NEGATIVE); URINE RBC 12 /uL (0-23.9); URINE WBC 11 /uL (0-25.8)
[2023-03-20] MEDS ORDERED: ENOXAPARIN NA (PORCINE) 40 MG/0.4 ML DISP.SYRIN SQ ONE (09:50)
[2023-03-20] MEDS ORDERED: PANTOPRAZOLE SODIUM 40 MG VIAL ONE (09:50)
[2023-03-20] MEDS ORDERED: NICOTINE 7 MG/24 HOURS TOPICAL PATCH TD ONE (09:50)
[2023-03-20] MEDS: ENOXAPARIN NA (PORCINE) 40 MG/0.4 ML DISP.SYRIN SQ SCH (10:50)
[2023-03-20] MEDS: NICOTINE 7 MG/24 HOURS TOPICAL PATCH TD SCH (10:51)
[2023-03-20] MEDS: BICTEGRAV/EMTRICIT/TENOFOV (BIKTARVY) 50-200-25 MG TABLET PO SCH (10:51)
[2023-03-20] MEDS: PANTOPRAZOLE SODIUM 40 MG VIAL IVPUSH SCH (10:51)
[2023-03-20] MEDS ORDERED: LORazepam 1 MG TABLET ONE (11:05)
[2023-03-20] MEDS: LORazepam 1 MG TABLET PO SCH (11:07)
[2023-03-20] MEDS ORDERED: DOCUSATE SODIUM 100 MG CAPSULE (FP) PO PRN (12:59)
[2023-03-20] MEDS ORDERED: ACETAMINOPHEN 325 MG TABLET (FP) PO ONE (13:30)
[2023-03-20] MEDS ORDERED: oxyCODONE HCL 5 MG TABLET PO ONE (13:30)
[2023-03-20] MEDS ORDERED: SUCRALFATE 1 GM TABLET (FP) ONE (13:32)
[2023-03-20] MEDS ORDERED: MAG HYDROX/AL HYDROX/SIMETH 30 ML UNIT-DOSE CUP PO PRN ×2 (14:32→14:34)
[2023-03-20] MEDS: SUCRALFATE 1 GM TABLET (FP) PO SCH (16:10)
[2023-03-20 16:47] VITALS: BMI 42.9
[2023-03-20] MEDS ORDERED: SENNOSIDES 8.6MG TABLET (FP) PO SCH (22:00)
[2023-03-20] MEDS: POLYETHYLENE GLYCOL (HEALTHYLAX) 3350 17 GM PACKET PO SCH (22:56)
[2023-03-20] MEDS: ATORVASTATIN CA 10 MG TABLET (FP) PO SCH (22:56)
[2023-03-21 09:23] LABS: BASO % 0.3 % (0-2.0); EOS % 1.3 % (0-4.5); HEMATOCRIT 34.9 % (35.4-49); HEMOGLOBIN 11.8 GM/dL (11.7-16.9); LYMPH % 15.5 % (8-40); MCHC 33.8 g/dl (32.0-35.9); MEAN CELL VOLUME 91.5 fl (80-96); MEAN PLT VOLUME 8.1 fl (7.5-11.1); MONO % 7.7 % (3.8-10.2); NEUT % 75.2 % (42.8-82.8); PLATELET COUNT 250 10^3/uL (134-434); RBC 3.81 M/mm3 (4.00-5.60); RDW 15.1 % (11.9-15.9); WHITE BLOOD COUNT 4.4 K/mm3 (4.0-10.0)
[2023-03-21 10:13] LABS: ALBUMIN 3.5 g/dl (3.4-5.0); BLOOD UREA NITROGEN 11.7 mg/dL (7-18); CALCIUM 8.9 mg/dL (8.5-10.1); MAGNESIUM 2.6 mg/dL (1.8-2.4)
[2023-03-21 10:16] LABS: BILIRUBIN,DIRECT 0.2 mg/dL (0.0-0.2); CREATININE 1.2 mg/dL (0.55-1.3)
[2023-03-21 10:17] LABS: BILIRUBIN,TOTAL 1.1 mg/dL (0.2-1); TOT PROT 6.8 g/dl (6.4-8.2)
[2023-03-21] MEDS: FOLIC ACID 1 MG TABLET (FP) PO SCH (11:07)
[2023-03-21] MEDS: PANTOPRAZOLE 40 MG TABLET PO SCH (11:07)
[2023-03-21] MEDS ORDERED: MOMETASONE FUROATE 220 MCG/IH INHALER IH SCH (22:00)
[2023-03-21] MEDS: THIAMINE HCL 100 MG TABLET (FP) PO SCH (22:13)
[2023-03-21] MEDS: ENOXAPARIN NA (PORCINE) 40 MG/0.4 ML DISP.SYRIN SQ SCH (22:13)
[2023-03-21] MEDS: BUDESONIDE/FORMETEROL FUMARATE 80/4.5 mcg INHALER IH SCH (23:23)
[2023-03-22] MEDS: LORazepam 1 MG TABLET PO SCH (05:13)
[2023-03-22 09:08] LABS: BASO % 0.6 % (0-2.0); EOS % 1.8 % (0-4.5); HEMATOCRIT 36.3 % (35.4-49); HEMOGLOBIN 11.9 GM/dL (11.7-16.9); LYMPH % 17.1 % (8-40); MCH 30.2 pg (25.7-33.7); MCHC 32.9 g/dl (32.0-35.9); MEAN CELL VOLUME 91.7 fl (80-96); MEAN PLT VOLUME 8.5 fl (7.5-11.1); MONO % 7.6 % (3.8-10.2); NEUT % 72.9 % (42.8-82.8); PLATELET COUNT 245 10^3/uL (134-434); RBC 3.96 M/mm3 (4.00-5.60); RDW 14.7 % (11.9-15.9); WHITE BLOOD COUNT 4.4 K/mm3 (4.0-10.0)
[2023-03-22 09:46] LABS: ALBUMIN 3.5 g/dl (3.4-5.0); BLOOD UREA NITROGEN 11.2 mg/dL (7-18)
[2023-03-22 09:47] LABS: MAGNESIUM 2.3 mg/dL (1.8-2.4)
[2023-03-22 09:49] LABS: CALCIUM 9.1 mg/dL (8.5-10.1); CREATININE 1.2 mg/dL (0.55-1.3); PHOSPHOROUS 3.4 mg/dL (2.5-4.9)
[2023-03-22 09:51] LABS: BILIRUBIN,TOTAL 0.9 mg/dL (0.2-1); TOT PROT 6.8 g/dl (6.4-8.2)
[2023-03-22] MEDS ORDERED: ACETAMINOPHEN 1000 MG/100 ML BAG IVPB PRN ×2 (11:26→12:28)
[2023-03-22] MEDS: GABAPENTIN 100 MG CAPSULE PO SCH (12:17)
[2023-03-22] MEDS: LIDOCAINE 4% PATCH TP SCH (12:46)
[2023-03-22] MEDS: oxyCODONE HCL 5 MG TABLET PO PRN (12:46)
[2023-03-22] MEDS: ACETAMINOPHEN 325 MG TABLET (FP) PO PRN (12:47)
[2023-03-22] MEDS: LIDOCAINE PATCH REMOVAL MC SCH (22:03)
[2023-03-22] MEDS ORDERED: QUEtiapine FUMARATE 100 MG TABLET (FP) PO SCH (23:43)
[2023-03-23] MEDS ORDERED: LORazepam 0.5 MG TABLET PO PRN
[2023-03-23] MEDS: QUEtiapine FUMARATE 100 MG TABLET (FP) PO ONE (00:20)
[2023-03-23] MEDS: LORazepam 0.5 MG TABLET PO SCH (05:31)
[2023-03-23 06:21] VITALS: RESP 18
[2023-03-23 09:15] LABS: BASO % 0.4 % (0-2.0); EOS % 3.2 % (0-4.5); HEMATOCRIT 35.3 % (35.4-49); HEMOGLOBIN 11.8 GM/dL (11.7-16.9); LYMPH % 20.7 % (8-40); MCH 30.8 pg (25.7-33.7); MCHC 33.4 g/dl (32.0-35.9); MEAN PLT VOLUME 8.2 fl (7.5-11.1); MONO % 9.1 % (3.8-10.2); NEUT % 66.6 % (42.8-82.8); PLATELET COUNT 241 10^3/uL (134-434); RBC 3.84 M/mm3 (4.00-5.60); WHITE BLOOD COUNT 3.9 K/mm3 (4.0-10.0)
[2023-03-23 09:27] LABS: POTASSIUM 3.6 mmol/L (3.5-5.1)
[2023-03-23 09:30] LABS: BLOOD UREA NITROGEN 11.1 mg/dL (7-18); CALCIUM 8.7 mg/dL (8.5-10.1)
[2023-03-23 09:31] LABS: ALBUMIN 3.3 g/dl (3.4-5.0); MAGNESIUM 2.1 mg/dL (1.8-2.4)
[2023-03-23 09:33] LABS: PHOSPHOROUS 4.3 mg/dL (2.5-4.9)
[2023-03-23 09:34] LABS: CREATININE 1.3 mg/dL (0.55-1.3)
[2023-03-23 09:35] LABS: BILIRUBIN,TOTAL 0.7 mg/dL (0.2-1); TOT PROT 6.5 g/dl (6.4-8.2)
[2023-03-23] MEDS ORDERED: QUEtiapine FUMARATE 200 MG TABLET PO SCH (22:00)
[2023-03-23] MEDS: QUEtiapine FUMARATE 100 MG TABLET (FP) PO SCH (22:39)
[2023-03-24] MEDS: LORazepam 0.5 MG TABLET PO ONE (06:20)
[2023-03-25 10:06] LABS: % CD 4 POS. LYMPH. 21.6 % (30.8-58.5); % CD 8 POS. LYMPH. 46.8 % (12.0-35.5); HEMATOCRIT 32.8 % (37.5-51.0); HEMOGLOBIN 11.3 g/dL (13.0-17.7); MCH 31.5 pg (26.6-33.0); MCHC 34.5 g/dL (31.5-35.7); PLATELET COUNT 236 x10E3/uL (150-450); RBC 3.59 x10E6/uL (4.14-5.80); WHITE BLOOD COUNT 4.4 x10E3/uL (3.4-10.8)
[2023-03-25 11:41] VITALS: BP 135/72; PULSE 77; TEMP 98.7
[2023-03-25] MEDS: ATOVAQUONE 750 MG/5 ML (UNIT-DOSE PACKAGING) PO SCH (15:22)
[2023-03-26] MEDS ORDERED: ATOVAQUONE 750 MG/5 ML (UNIT-DOSE PACKAGING) PO SCH (07:00)
[2023-03-26] MEDS ORDERED: ASPIRIN COATED 81 MG TABLET.EC PO SCH (10:00)
== END 2023-03-25 16:10 | disposition other institution (70) ==
LOC: JER 18:54 → JERBED 03-20 03:22 → J5S 03-20 17:56
PROVIDERS: ADMIT Internal Medicine
PROC: 3E033NZ Introduction of Analgesics, Hypnotics, Sedatives into Peripheral Vein, Percutaneous Approach (ICD-10-PCS; principal; 2023-03-20)
PROC: 3E023GC Introduction of Other Therapeutic Substance into Muscle, Percutaneous Approach (ICD-10-PCS; 2023-03-20)
PROC: 3E033GC Introduction of Other Therapeutic Substance into Peripheral Vein, Percutaneous Approach (ICD-10-PCS; 2023-03-20)
PROC: 3E0337Z Introduction of Electrolytic and Water Balance Substance into Peripheral Vein, Percutaneous Approach (ICD-10-PCS; 2023-03-20)
DX: R11.10 Vomiting, unspecified (principal); F10.10 Alcohol abuse, uncomplicated; R10.13 Epigastric pain; R63.0 Anorexia; F31.9 Bipolar disorder, unspecified; B20 Human immunodeficiency virus [HIV] disease; K59.00 Constipation, unspecified; F41.8 Other specified anxiety disorders; R11.2 Nausea with vomiting, unspecified; K21.9 Gastro-esophageal reflux disease without esophagitis; R56.9 Unspecified convulsions; M19.90 Unspecified osteoarthritis, unspecified site; J45.909 Unspecified asthma, uncomplicated; G89.29 Other chronic pain; M54.50 Low back pain, unspecified; Z88.8 Allergy status to other drugs, medicaments and biological substances; F17.210 Nicotine dependence, cigarettes, uncomplicated
CPT/HCPCS: 36415; 70450-TC; 74177-TC; 80053; 80076; 80307; 81003; 83690; 83735; 84100; 84484; 85025; 85027; 85610; 85730; 86360; 93005; 93010; 96365; 96367; 96372; 96375; 97116-GP; 97162-GP; 99285-25; G0378; J0131

== ENCOUNTER 2023-03-25 16:12 | Inpatient (IN) | payer OTHER ==
[2023-03-25 16:47] VITALS: BMI 41.8
[2023-03-25] MEDS ORDERED: ALBUTEROL SO4 HFA INHALER IH PRN (17:49)
[2023-03-25] MEDS ORDERED: guaiFENesin 600 MG TABLET.ER (FP) PO PRN (17:55)
[2023-03-25] MEDS ORDERED: BISACODYL 5 MG TABLET.DR (FP) PO PRN (17:55)
[2023-03-25] MEDS ORDERED: DOCUSATE SODIUM 100 MG CAPSULE (FP) PO PRN (17:55)
[2023-03-25] MEDS ORDERED: BENZONATATE 200 MG CAPSULE PO PRN (17:55)
[2023-03-25] MEDS ORDERED: BENZOCAINE/MENTHOL (CHLORASEPTIC ) LOZENGE MM PRN (17:55)
[2023-03-25] MEDS ORDERED: COLLOIDAL OATMEAL 1 BAR EACH TP PRN (17:55)
[2023-03-25] MEDS ORDERED: P-EPHED 60MG/TRIPROLIDI 2.5MG TABLET PO PRN (17:55)
[2023-03-25] MEDS ORDERED: MAGNESIUM HYDROX 2400MG/30ML ORAL SUSPENSION 30 ML CUP PO PRN (17:55)
[2023-03-25] MEDS ORDERED: LOPERAMIDE HCL 2 MG CAPSULE PO PRN (17:55)
[2023-03-25] MEDS: ACETAMINOPHEN 325 MG TABLET (FP) PO PRN (21:48)
[2023-03-25] MEDS: POLYETHYLENE GLYCOL (HEALTHYLAX) 3350 17 GM PACKET PO SCH (21:49)
[2023-03-25] MEDS: MELATONIN 5 MG TABLETS PO SCH (21:49)
[2023-03-25] MEDS: LIDOCAINE PATCH REMOVAL MC SCH (21:49)
[2023-03-25] MEDS: THIAMINE HCL 100 MG TABLET (FP) PO SCH (21:49)
[2023-03-25] MEDS: ATORVASTATIN CA 20 MG TABLET (FP) PO SCH (21:49)
[2023-03-25] MEDS: BUDESONIDE/FORMETEROL FUMARATE 80/4.5 mcg INHALER IH SCH (21:51)
[2023-03-25] MEDS ORDERED: QUEtiapine FUMARATE 100 MG TABLET (FP) PO ONE (22:00)
[2023-03-26] MEDS: BICTEGRAV/EMTRICIT/TENOFOV (BIKTARVY) 50-200-25 MG TABLET PO SCH (08:23)
[2023-03-26] MEDS: PANTOPRAZOLE 40 MG TABLET PO SCH (09:27)
[2023-03-26] MEDS: ASPIRIN COATED 81 MG TABLET.EC PO SCH (09:27)
[2023-03-26] MEDS: PRENATAL VITAMINS W/ FOLIC ACID TABLET (FP) PO SCH (09:27)
[2023-03-26] MEDS: FOLIC ACID 1 MG TABLET (FP) PO SCH (09:27)
[2023-03-26] MEDS: ATOVAQUONE 750 MG/5 ML (UNIT-DOSE PACKAGING) PO SCH (09:27)
[2023-03-26] MEDS: NICOTINE 7 MG/24 HOURS TOPICAL PATCH TD SCH (09:28)
[2023-03-26] MEDS: POLYETHYLENE GLYCOL (HEALTHYLAX) 3350 17 GM PACKET PO SCH ×2 (09:29→21:17)
[2023-03-26] MEDS: LIDOCAINE 4% PATCH TP SCH (09:30)
[2023-03-26] MEDS: BUDESONIDE/FORMETEROL FUMARATE 80/4.5 mcg INHALER IH SCH ×2 (09:32→21:18)
[2023-03-26] MEDS: GABAPENTIN 100 MG CAPSULE PO SCH ×2 (14:40→21:18)
[2023-03-26] MEDS: METHOCARBAMOL 500 MG TABLET PO PRN ×2 (14:42→21:18)
[2023-03-26] MEDS: ACETAMINOPHEN 325 MG TABLET (FP) PO PRN (18:01)
[2023-03-26] MEDS: MELATONIN 5 MG TABLETS PO SCH (21:18)
[2023-03-26] MEDS: THIAMINE HCL 100 MG TABLET (FP) PO SCH (21:18)
[2023-03-26] MEDS: ATORVASTATIN CA 20 MG TABLET (FP) PO SCH (21:18)
[2023-03-26] MEDS: QUEtiapine FUMARATE 200 MG TABLET PO SCH (21:19)
[2023-03-26] MEDS: LIDOCAINE PATCH REMOVAL MC SCH (21:20)
[2023-03-27] MEDS: GABAPENTIN 100 MG CAPSULE PO SCH ×3 (06:12→21:18)
[2023-03-27] MEDS: ACAMPROSATE CALCIUM 333 MG TABLET.DR PO SCH ×3 (06:12→21:18)
[2023-03-27] MEDS: BICTEGRAV/EMTRICIT/TENOFOV (BIKTARVY) 50-200-25 MG TABLET PO SCH (07:04)
[2023-03-27] MEDS: ATOVAQUONE 750 MG/5 ML (UNIT-DOSE PACKAGING) PO SCH (09:45)
[2023-03-27] MEDS: PRENATAL VITAMINS W/ FOLIC ACID TABLET (FP) PO SCH (09:45)
[2023-03-27] MEDS: POLYETHYLENE GLYCOL (HEALTHYLAX) 3350 17 GM PACKET PO SCH ×2 (09:46→21:18)
[2023-03-27] MEDS: BUDESONIDE/FORMETEROL FUMARATE 80/4.5 mcg INHALER IH SCH ×2 (09:46→21:18)
[2023-03-27] MEDS: LIDOCAINE 4% PATCH TP SCH (09:47)
[2023-03-27] MEDS: FOLIC ACID 1 MG TABLET (FP) PO SCH (09:47)
[2023-03-27] MEDS: ASPIRIN COATED 81 MG TABLET.EC PO SCH (09:47)
[2023-03-27] MEDS: PANTOPRAZOLE 40 MG TABLET PO SCH (09:47)
[2023-03-27] MEDS: ERGOCALCIFEROL (VIT D2) 50,000 UNIT (1.25 MG) CAPSULE PO SCH (09:48)
[2023-03-27] MEDS: NICOTINE 7 MG/24 HOURS TOPICAL PATCH TD SCH (09:48)
[2023-03-27] MEDS: MELATONIN 5 MG TABLETS PO SCH (21:18)
[2023-03-27] MEDS: QUEtiapine FUMARATE 200 MG TABLET PO SCH (21:18)
[2023-03-27] MEDS: ATORVASTATIN CA 20 MG TABLET (FP) PO SCH (21:18)
[2023-03-27] MEDS: THIAMINE HCL 100 MG TABLET (FP) PO SCH (21:18)
[2023-03-27] MEDS: LIDOCAINE PATCH REMOVAL MC SCH (21:45)
[2023-03-28] MEDS: METHOCARBAMOL 500 MG TABLET PO PRN (05:20)
[2023-03-28] MEDS: ACETAMINOPHEN 325 MG TABLET (FP) PO PRN ×2 (05:20→21:42)
[2023-03-28] MEDS: ACAMPROSATE CALCIUM 333 MG TABLET.DR PO SCH ×3 (07:48→21:40)
[2023-03-28] MEDS: BICTEGRAV/EMTRICIT/TENOFOV (BIKTARVY) 50-200-25 MG TABLET PO SCH (07:48)
[2023-03-28] MEDS: GABAPENTIN 100 MG CAPSULE PO SCH ×3 (07:48→21:40)
[2023-03-28] MEDS: PRENATAL VITAMINS W/ FOLIC ACID TABLET (FP) PO SCH (10:04)
[2023-03-28] MEDS: ATOVAQUONE 750 MG/5 ML (UNIT-DOSE PACKAGING) PO SCH (10:04)
[2023-03-28] MEDS: BUDESONIDE/FORMETEROL FUMARATE 80/4.5 mcg INHALER IH SCH ×2 (10:04→21:41)
[2023-03-28] MEDS: LIDOCAINE 4% PATCH TP SCH (10:05)
[2023-03-28] MEDS: POLYETHYLENE GLYCOL (HEALTHYLAX) 3350 17 GM PACKET PO SCH ×2 (10:05→21:41)
[2023-03-28] MEDS: NICOTINE 7 MG/24 HOURS TOPICAL PATCH TD SCH (10:06)
[2023-03-28] MEDS: PANTOPRAZOLE 40 MG TABLET PO SCH (10:06)
[2023-03-28] MEDS: FOLIC ACID 1 MG TABLET (FP) PO SCH (10:06)
[2023-03-28] MEDS: ASPIRIN COATED 81 MG TABLET.EC PO SCH (10:06)
[2023-03-28] MEDS: ATORVASTATIN CA 20 MG TABLET (FP) PO SCH (21:40)
[2023-03-28] MEDS: MELATONIN 5 MG TABLETS PO SCH (21:40)
[2023-03-28] MEDS: THIAMINE HCL 100 MG TABLET (FP) PO SCH (21:40)
[2023-03-28] MEDS: QUEtiapine FUMARATE 200 MG TABLET PO SCH (21:40)
[2023-03-28] MEDS: LIDOCAINE PATCH REMOVAL MC SCH (21:41)
[2023-03-29] MEDS: METHOCARBAMOL 500 MG TABLET PO PRN (04:23)
[2023-03-29] MEDS: GABAPENTIN 100 MG CAPSULE PO SCH ×3 (06:00→21:26)
[2023-03-29] MEDS: ACAMPROSATE CALCIUM 333 MG TABLET.DR PO SCH ×3 (06:00→21:26)
[2023-03-29] MEDS: BICTEGRAV/EMTRICIT/TENOFOV (BIKTARVY) 50-200-25 MG TABLET PO SCH (07:05)
[2023-03-29] MEDS: FOLIC ACID 1 MG TABLET (FP) PO SCH (09:47)
[2023-03-29] MEDS: POLYETHYLENE GLYCOL (HEALTHYLAX) 3350 17 GM PACKET PO SCH ×2 (09:47→21:32)
[2023-03-29] MEDS: ASPIRIN COATED 81 MG TABLET.EC PO SCH (09:47)
[2023-03-29] MEDS: PRENATAL VITAMINS W/ FOLIC ACID TABLET (FP) PO SCH (09:47)
[2023-03-29] MEDS: PANTOPRAZOLE 40 MG TABLET PO SCH (09:48)
[2023-03-29] MEDS: LIDOCAINE 4% PATCH TP SCH (09:48)
[2023-03-29] MEDS: BUDESONIDE/FORMETEROL FUMARATE 80/4.5 mcg INHALER IH SCH ×2 (09:48→21:32)
[2023-03-29] MEDS: ATOVAQUONE 750 MG/5 ML (UNIT-DOSE PACKAGING) PO SCH (09:49)
[2023-03-29] MEDS: NICOTINE 7 MG/24 HOURS TOPICAL PATCH TD SCH (09:51)
[2023-03-29] MEDS: QUEtiapine FUMARATE 200 MG TABLET PO SCH (21:26)
[2023-03-29] MEDS: THIAMINE HCL 100 MG TABLET (FP) PO SCH (21:26)
[2023-03-29] MEDS: ATORVASTATIN CA 20 MG TABLET (FP) PO SCH (21:26)
[2023-03-29] MEDS: MELATONIN 5 MG TABLETS PO SCH (21:26)
[2023-03-29] MEDS: LIDOCAINE PATCH REMOVAL MC SCH (21:28)
[2023-03-30] MEDS: METHOCARBAMOL 500 MG TABLET PO PRN (06:11)
[2023-03-30] MEDS: GABAPENTIN 100 MG CAPSULE PO SCH ×3 (06:11→21:20)
[2023-03-30] MEDS: ACAMPROSATE CALCIUM 333 MG TABLET.DR PO SCH ×3 (06:11→21:20)
[2023-03-30] MEDS: BICTEGRAV/EMTRICIT/TENOFOV (BIKTARVY) 50-200-25 MG TABLET PO SCH (07:20)
[2023-03-30] MEDS: PRENATAL VITAMINS W/ FOLIC ACID TABLET (FP) PO SCH (09:57)
[2023-03-30] MEDS: ASPIRIN COATED 81 MG TABLET.EC PO SCH (09:58)
[2023-03-30] MEDS: ATOVAQUONE 750 MG/5 ML (UNIT-DOSE PACKAGING) PO SCH (09:58)
[2023-03-30] MEDS: PANTOPRAZOLE 40 MG TABLET PO SCH (09:58)
[2023-03-30] MEDS: BUDESONIDE/FORMETEROL FUMARATE 80/4.5 mcg INHALER IH SCH ×2 (09:58→21:21)
[2023-03-30] MEDS: FOLIC ACID 1 MG TABLET (FP) PO SCH (09:58)
[2023-03-30] MEDS: NICOTINE 7 MG/24 HOURS TOPICAL PATCH TD SCH (09:59)
[2023-03-30] MEDS: POLYETHYLENE GLYCOL (HEALTHYLAX) 3350 17 GM PACKET PO SCH ×2 (09:59→21:21)
[2023-03-30] MEDS: LIDOCAINE 4% PATCH TP SCH (09:59)
[2023-03-30] MEDS: MELATONIN 5 MG TABLETS PO SCH (21:19)
[2023-03-30] MEDS: LIDOCAINE PATCH REMOVAL MC SCH (21:20)
[2023-03-30] MEDS: ATORVASTATIN CA 20 MG TABLET (FP) PO SCH (21:20)
[2023-03-30] MEDS: QUEtiapine FUMARATE 200 MG TABLET PO SCH (21:20)
[2023-03-30] MEDS: THIAMINE HCL 100 MG TABLET (FP) PO SCH (21:20)
[2023-03-31] MEDS: METHOCARBAMOL 500 MG TABLET PO PRN (01:48)
[2023-03-31] MEDS: ACETAMINOPHEN 325 MG TABLET (FP) PO PRN (01:48)
[2023-03-31] MEDS: GABAPENTIN 100 MG CAPSULE PO SCH ×3 (05:55→21:18)
[2023-03-31] MEDS: ACAMPROSATE CALCIUM 333 MG TABLET.DR PO SCH ×3 (05:55→21:17)
[2023-03-31] MEDS: BICTEGRAV/EMTRICIT/TENOFOV (BIKTARVY) 50-200-25 MG TABLET PO SCH (07:02)
[2023-03-31] MEDS: PRENATAL VITAMINS W/ FOLIC ACID TABLET (FP) PO SCH (09:42)
[2023-03-31] MEDS: LIDOCAINE 4% PATCH TP SCH (09:43)
[2023-03-31] MEDS: BUDESONIDE/FORMETEROL FUMARATE 80/4.5 mcg INHALER IH SCH ×2 (09:43→21:17)
[2023-03-31] MEDS: ATOVAQUONE 750 MG/5 ML (UNIT-DOSE PACKAGING) PO SCH (09:43)
[2023-03-31] MEDS: PANTOPRAZOLE 40 MG TABLET PO SCH (09:44)
[2023-03-31] MEDS: FOLIC ACID 1 MG TABLET (FP) PO SCH (09:44)
[2023-03-31] MEDS: POLYETHYLENE GLYCOL (HEALTHYLAX) 3350 17 GM PACKET PO SCH ×2 (09:44→21:18)
[2023-03-31] MEDS: NICOTINE 7 MG/24 HOURS TOPICAL PATCH TD SCH (09:44)
[2023-03-31] MEDS: ASPIRIN COATED 81 MG TABLET.EC PO SCH (09:44)
[2023-03-31] MEDS: QUEtiapine FUMARATE 200 MG TABLET PO SCH (21:17)
[2023-03-31] MEDS: MELATONIN 5 MG TABLETS PO SCH (21:17)
[2023-03-31] MEDS: ATORVASTATIN CA 20 MG TABLET (FP) PO SCH (21:18)
[2023-03-31] MEDS: THIAMINE HCL 100 MG TABLET (FP) PO SCH (21:18)
[2023-03-31] MEDS: LIDOCAINE PATCH REMOVAL MC SCH (21:18)
[2023-04-01] MEDS: ACAMPROSATE CALCIUM 333 MG TABLET.DR PO SCH ×3 (06:20→21:33)
[2023-04-01] MEDS: GABAPENTIN 100 MG CAPSULE PO SCH ×3 (06:21→21:32)
[2023-04-01] MEDS: BICTEGRAV/EMTRICIT/TENOFOV (BIKTARVY) 50-200-25 MG TABLET PO SCH (07:10)
[2023-04-01] MEDS: POLYETHYLENE GLYCOL (HEALTHYLAX) 3350 17 GM PACKET PO SCH ×2 (09:38→21:31)
[2023-04-01] MEDS: NICOTINE 7 MG/24 HOURS TOPICAL PATCH TD SCH (09:38)
[2023-04-01] MEDS: PRENATAL VITAMINS W/ FOLIC ACID TABLET (FP) PO SCH (09:39)
[2023-04-01] MEDS: FOLIC ACID 1 MG TABLET (FP) PO SCH (09:39)
[2023-04-01] MEDS: LIDOCAINE 4% PATCH TP SCH (09:39)
[2023-04-01] MEDS: ATOVAQUONE 750 MG/5 ML (UNIT-DOSE PACKAGING) PO SCH (09:39)
[2023-04-01] MEDS: ASPIRIN COATED 81 MG TABLET.EC PO SCH (09:39)
[2023-04-01] MEDS: PANTOPRAZOLE 40 MG TABLET PO SCH (09:39)
[2023-04-01] MEDS: BUDESONIDE/FORMETEROL FUMARATE 80/4.5 mcg INHALER IH SCH ×2 (09:39→21:53)
[2023-04-01] MEDS: MAG HYDROX/AL HYDROX/SIMETH 30 ML UNIT-DOSE CUP PO PRN ×2 (14:51→21:34)
[2023-04-01] MEDS: QUEtiapine FUMARATE 200 MG TABLET PO SCH (21:32)
[2023-04-01] MEDS: ATORVASTATIN CA 20 MG TABLET (FP) PO SCH (21:33)
[2023-04-01] MEDS: MELATONIN 5 MG TABLETS PO SCH (21:33)
[2023-04-01] MEDS: THIAMINE HCL 100 MG TABLET (FP) PO SCH (21:33)
[2023-04-01] MEDS: ZINC OXIDE 20% TOPICAL OINTMENT 30 GM TUBE TP PRN (21:44)
[2023-04-01] MEDS: LIDOCAINE PATCH REMOVAL MC SCH (21:53)
[2023-04-02] MEDS: MAG HYDROX/AL HYDROX/SIMETH 30 ML UNIT-DOSE CUP PO PRN (03:17)
[2023-04-02] MEDS: ACAMPROSATE CALCIUM 333 MG TABLET.DR PO SCH ×3 (06:28→21:10)
[2023-04-02] MEDS: GABAPENTIN 100 MG CAPSULE PO SCH ×3 (06:28→21:10)
[2023-04-02] MEDS: BICTEGRAV/EMTRICIT/TENOFOV (BIKTARVY) 50-200-25 MG TABLET PO SCH (07:00)
[2023-04-02] MEDS: PRENATAL VITAMINS W/ FOLIC ACID TABLET (FP) PO SCH (09:53)
[2023-04-02] MEDS: NICOTINE 7 MG/24 HOURS TOPICAL PATCH TD SCH (09:53)
[2023-04-02] MEDS: BUDESONIDE/FORMETEROL FUMARATE 80/4.5 mcg INHALER IH SCH ×2 (09:53→21:37)
[2023-04-02] MEDS: POLYETHYLENE GLYCOL (HEALTHYLAX) 3350 17 GM PACKET PO SCH ×2 (09:53→21:10)
[2023-04-02] MEDS: LIDOCAINE 4% PATCH TP SCH (09:53)
[2023-04-02] MEDS: ATOVAQUONE 750 MG/5 ML (UNIT-DOSE PACKAGING) PO SCH (09:54)
[2023-04-02] MEDS: ASPIRIN COATED 81 MG TABLET.EC PO SCH (09:54)
[2023-04-02] MEDS: FOLIC ACID 1 MG TABLET (FP) PO SCH (09:54)
[2023-04-02] MEDS: PANTOPRAZOLE 40 MG TABLET PO SCH (09:54)
[2023-04-02] MEDS: ATORVASTATIN CA 20 MG TABLET (FP) PO SCH (21:10)
[2023-04-02] MEDS: THIAMINE HCL 100 MG TABLET (FP) PO SCH (21:10)
[2023-04-02] MEDS: LIDOCAINE PATCH REMOVAL MC SCH (21:11)
[2023-04-02] MEDS: MELATONIN 5 MG TABLETS PO SCH (21:11)
[2023-04-02] MEDS: QUEtiapine FUMARATE 200 MG TABLET PO SCH (21:11)
[2023-04-03] MEDS: GABAPENTIN 100 MG CAPSULE PO SCH ×3 (06:22→21:17)
[2023-04-03] MEDS: ACAMPROSATE CALCIUM 333 MG TABLET.DR PO SCH ×3 (06:22→21:17)
[2023-04-03] MEDS: BICTEGRAV/EMTRICIT/TENOFOV (BIKTARVY) 50-200-25 MG TABLET PO SCH (07:18)
[2023-04-03] MEDS: PRENATAL VITAMINS W/ FOLIC ACID TABLET (FP) PO SCH (09:37)
[2023-04-03] MEDS: POLYETHYLENE GLYCOL (HEALTHYLAX) 3350 17 GM PACKET PO SCH ×2 (09:37→21:18)
[2023-04-03] MEDS: BUDESONIDE/FORMETEROL FUMARATE 80/4.5 mcg INHALER IH SCH ×2 (09:38→21:19)
[2023-04-03] MEDS: ASPIRIN COATED 81 MG TABLET.EC PO SCH (09:38)
[2023-04-03] MEDS: FOLIC ACID 1 MG TABLET (FP) PO SCH (09:38)
[2023-04-03] MEDS: NICOTINE 7 MG/24 HOURS TOPICAL PATCH TD SCH (09:38)
[2023-04-03] MEDS: PANTOPRAZOLE 40 MG TABLET PO SCH (09:38)
[2023-04-03] MEDS: ATOVAQUONE 750 MG/5 ML (UNIT-DOSE PACKAGING) PO SCH (09:39)
[2023-04-03] MEDS: ERGOCALCIFEROL (VIT D2) 50,000 UNIT (1.25 MG) CAPSULE PO SCH (09:39)
[2023-04-03] MEDS: LIDOCAINE 4% PATCH TP SCH (09:41)
[2023-04-03] MEDS: MELATONIN 5 MG TABLETS PO SCH (21:17)
[2023-04-03] MEDS: ATORVASTATIN CA 20 MG TABLET (FP) PO SCH (21:17)
[2023-04-03] MEDS: QUEtiapine FUMARATE 200 MG TABLET PO SCH (21:19)
[2023-04-03] MEDS: THIAMINE HCL 100 MG TABLET (FP) PO SCH (21:19)
[2023-04-03] MEDS: LIDOCAINE PATCH REMOVAL MC SCH (21:19)
[2023-04-04] MEDS: ACETAMINOPHEN 325 MG TABLET (FP) PO PRN (00:32)
[2023-04-04] MEDS: ACAMPROSATE CALCIUM 333 MG TABLET.DR PO SCH ×3 (05:59→21:23)
[2023-04-04] MEDS: GABAPENTIN 100 MG CAPSULE PO SCH ×3 (05:59→21:23)
[2023-04-04] MEDS: BICTEGRAV/EMTRICIT/TENOFOV (BIKTARVY) 50-200-25 MG TABLET PO SCH (07:33)
[2023-04-04] MEDS: ASPIRIN COATED 81 MG TABLET.EC PO SCH (09:43)
[2023-04-04] MEDS: PRENATAL VITAMINS W/ FOLIC ACID TABLET (FP) PO SCH (09:43)
[2023-04-04] MEDS: PANTOPRAZOLE 40 MG TABLET PO SCH (09:43)
[2023-04-04] MEDS: FOLIC ACID 1 MG TABLET (FP) PO SCH (09:43)
[2023-04-04] MEDS: NICOTINE 7 MG/24 HOURS TOPICAL PATCH TD SCH (09:44)
[2023-04-04] MEDS: ATOVAQUONE 750 MG/5 ML (UNIT-DOSE PACKAGING) PO SCH (09:44)
[2023-04-04] MEDS: BUDESONIDE/FORMETEROL FUMARATE 80/4.5 mcg INHALER IH SCH ×2 (09:44→21:24)
[2023-04-04] MEDS: LIDOCAINE 4% PATCH TP SCH (09:45)
[2023-04-04] MEDS: POLYETHYLENE GLYCOL (HEALTHYLAX) 3350 17 GM PACKET PO SCH ×2 (09:45→21:26)
[2023-04-04] MEDS: THIAMINE HCL 100 MG TABLET (FP) PO SCH (21:23)
[2023-04-04] MEDS: QUEtiapine FUMARATE 200 MG TABLET PO SCH (21:24)
[2023-04-04] MEDS: LIDOCAINE PATCH REMOVAL MC SCH (21:25)
[2023-04-04] MEDS: ATORVASTATIN CA 20 MG TABLET (FP) PO SCH (21:25)
[2023-04-04] MEDS: MELATONIN 5 MG TABLETS PO SCH (21:26)
[2023-04-05] MEDS: ACAMPROSATE CALCIUM 333 MG TABLET.DR PO SCH ×3 (05:38→21:19)
[2023-04-05] MEDS: GABAPENTIN 100 MG CAPSULE PO SCH ×3 (05:38→21:19)
[2023-04-05] MEDS: BICTEGRAV/EMTRICIT/TENOFOV (BIKTARVY) 50-200-25 MG TABLET PO SCH (07:36)
[2023-04-05] MEDS: ATOVAQUONE 750 MG/5 ML (UNIT-DOSE PACKAGING) PO SCH (07:36)
[2023-04-05] MEDS: LIDOCAINE 4% PATCH TP SCH (09:38)
[2023-04-05] MEDS: BUDESONIDE/FORMETEROL FUMARATE 80/4.5 mcg INHALER IH SCH ×2 (09:38→21:20)
[2023-04-05] MEDS: FOLIC ACID 1 MG TABLET (FP) PO SCH (09:39)
[2023-04-05] MEDS: NICOTINE 7 MG/24 HOURS TOPICAL PATCH TD SCH (09:39)
[2023-04-05] MEDS: PRENATAL VITAMINS W/ FOLIC ACID TABLET (FP) PO SCH (09:39)
[2023-04-05] MEDS: PANTOPRAZOLE 40 MG TABLET PO SCH (09:39)
[2023-04-05] MEDS: ASPIRIN COATED 81 MG TABLET.EC PO SCH (09:40)
[2023-04-05] MEDS: POLYETHYLENE GLYCOL (HEALTHYLAX) 3350 17 GM PACKET PO SCH ×2 (09:41→21:19)
[2023-04-05] MEDS: ATORVASTATIN CA 20 MG TABLET (FP) PO SCH (21:19)
[2023-04-05] MEDS: THIAMINE HCL 100 MG TABLET (FP) PO SCH (21:20)
[2023-04-05] MEDS: QUEtiapine FUMARATE 200 MG TABLET PO SCH (21:20)
[2023-04-05] MEDS: LIDOCAINE PATCH REMOVAL MC SCH (21:20)
[2023-04-05] MEDS: MELATONIN 5 MG TABLETS PO SCH (21:20)
[2023-04-06] MEDS: ACETAMINOPHEN 325 MG TABLET (FP) PO PRN (01:17)
[2023-04-06] MEDS: ACAMPROSATE CALCIUM 333 MG TABLET.DR PO SCH ×3 (06:14→21:31)
[2023-04-06] MEDS: GABAPENTIN 100 MG CAPSULE PO SCH ×3 (06:14→21:32)
[2023-04-06] MEDS: BICTEGRAV/EMTRICIT/TENOFOV (BIKTARVY) 50-200-25 MG TABLET PO SCH (07:09)
[2023-04-06] MEDS: PRENATAL VITAMINS W/ FOLIC ACID TABLET (FP) PO SCH (09:46)
[2023-04-06] MEDS: BUDESONIDE/FORMETEROL FUMARATE 80/4.5 mcg INHALER IH SCH ×2 (09:47→21:32)
[2023-04-06] MEDS: POLYETHYLENE GLYCOL (HEALTHYLAX) 3350 17 GM PACKET PO SCH ×2 (09:47→21:31)
[2023-04-06] MEDS: ASPIRIN COATED 81 MG TABLET.EC PO SCH (09:47)
[2023-04-06] MEDS: ATOVAQUONE 750 MG/5 ML (UNIT-DOSE PACKAGING) PO SCH (09:47)
[2023-04-06] MEDS: PANTOPRAZOLE 40 MG TABLET PO SCH (09:47)
[2023-04-06] MEDS: LIDOCAINE 4% PATCH TP SCH (09:48)
[2023-04-06] MEDS: FOLIC ACID 1 MG TABLET (FP) PO SCH (09:48)
[2023-04-06] MEDS: NICOTINE 7 MG/24 HOURS TOPICAL PATCH TD SCH (10:22)
[2023-04-06] MEDS: THIAMINE HCL 100 MG TABLET (FP) PO SCH (21:31)
[2023-04-06] MEDS: ATORVASTATIN CA 20 MG TABLET (FP) PO SCH (21:31)
[2023-04-06] MEDS: LIDOCAINE PATCH REMOVAL MC SCH (21:32)
[2023-04-06] MEDS: MELATONIN 5 MG TABLETS PO SCH (21:32)
[2023-04-06] MEDS: QUEtiapine FUMARATE 200 MG TABLET PO SCH (21:32)
[2023-04-07] MEDS: ACETAMINOPHEN 325 MG TABLET (FP) PO PRN (01:19)
[2023-04-07] MEDS: GABAPENTIN 100 MG CAPSULE PO SCH ×3 (06:18→21:31)
[2023-04-07] MEDS: ACAMPROSATE CALCIUM 333 MG TABLET.DR PO SCH ×3 (06:18→21:31)
[2023-04-07] MEDS: BICTEGRAV/EMTRICIT/TENOFOV (BIKTARVY) 50-200-25 MG TABLET PO SCH (07:13)
[2023-04-07] MEDS: PRENATAL VITAMINS W/ FOLIC ACID TABLET (FP) PO SCH (09:41)
[2023-04-07] MEDS: BUDESONIDE/FORMETEROL FUMARATE 80/4.5 mcg INHALER IH SCH ×2 (09:42→21:32)
[2023-04-07] MEDS: POLYETHYLENE GLYCOL (HEALTHYLAX) 3350 17 GM PACKET PO SCH ×2 (09:42→21:31)
[2023-04-07] MEDS: NICOTINE 7 MG/24 HOURS TOPICAL PATCH TD SCH (09:42)
[2023-04-07] MEDS: LIDOCAINE 4% PATCH TP SCH (09:42)
[2023-04-07] MEDS: ATOVAQUONE 750 MG/5 ML (UNIT-DOSE PACKAGING) PO SCH (09:43)
[2023-04-07] MEDS: ASPIRIN COATED 81 MG TABLET.EC PO SCH (09:43)
[2023-04-07] MEDS: FOLIC ACID 1 MG TABLET (FP) PO SCH (09:43)
[2023-04-07] MEDS: PANTOPRAZOLE 40 MG TABLET PO SCH (09:43)
[2023-04-07] MEDS: LIDOCAINE PATCH REMOVAL MC SCH (21:31)
[2023-04-07] MEDS: ATORVASTATIN CA 20 MG TABLET (FP) PO SCH (21:31)
[2023-04-07] MEDS: THIAMINE HCL 100 MG TABLET (FP) PO SCH (21:32)
[2023-04-07] MEDS: MELATONIN 5 MG TABLETS PO SCH (21:32)
[2023-04-07] MEDS: QUEtiapine FUMARATE 200 MG TABLET PO SCH (21:32)
[2023-04-08] MEDS: ACETAMINOPHEN 325 MG TABLET (FP) PO PRN (01:03)
[2023-04-08] MEDS: GABAPENTIN 100 MG CAPSULE PO SCH ×3 (06:06→21:21)
[2023-04-08] MEDS: ACAMPROSATE CALCIUM 333 MG TABLET.DR PO SCH ×3 (06:07→21:20)
[2023-04-08] MEDS: BICTEGRAV/EMTRICIT/TENOFOV (BIKTARVY) 50-200-25 MG TABLET PO SCH (07:02)
[2023-04-08] MEDS: ATOVAQUONE 750 MG/5 ML (UNIT-DOSE PACKAGING) PO SCH (09:55)
[2023-04-08] MEDS: PRENATAL VITAMINS W/ FOLIC ACID TABLET (FP) PO SCH (09:55)
[2023-04-08] MEDS: BUDESONIDE/FORMETEROL FUMARATE 80/4.5 mcg INHALER IH SCH ×2 (09:55→21:21)
[2023-04-08] MEDS: LIDOCAINE 4% PATCH TP SCH (09:56)
[2023-04-08] MEDS: PANTOPRAZOLE 40 MG TABLET PO SCH (09:56)
[2023-04-08] MEDS: ASPIRIN COATED 81 MG TABLET.EC PO SCH (09:56)
[2023-04-08] MEDS: FOLIC ACID 1 MG TABLET (FP) PO SCH (09:56)
[2023-04-08] MEDS: POLYETHYLENE GLYCOL (HEALTHYLAX) 3350 17 GM PACKET PO SCH ×2 (09:57→21:20)
[2023-04-08] MEDS: NICOTINE 7 MG/24 HOURS TOPICAL PATCH TD SCH (09:57)
[2023-04-08] MEDS ORDERED: TUBERCULIN PPD 5 TU/0.1ML VIAL ID ONE (10:33)
[2023-04-08] MEDS: LIDOCAINE PATCH REMOVAL MC SCH (21:20)
[2023-04-08] MEDS: THIAMINE HCL 100 MG TABLET (FP) PO SCH (21:20)
[2023-04-08] MEDS: MELATONIN 5 MG TABLETS PO SCH (21:21)
[2023-04-08] MEDS: QUEtiapine FUMARATE 200 MG TABLET PO SCH (21:21)
[2023-04-08] MEDS: ATORVASTATIN CA 20 MG TABLET (FP) PO SCH (21:21)
[2023-04-09] MEDS: ACETAMINOPHEN 325 MG TABLET (FP) PO PRN (02:15)
[2023-04-09] MEDS: ACAMPROSATE CALCIUM 333 MG TABLET.DR PO SCH ×3 (06:46→21:18)
[2023-04-09] MEDS: GABAPENTIN 100 MG CAPSULE PO SCH ×3 (06:46→21:18)
[2023-04-09] MEDS: BICTEGRAV/EMTRICIT/TENOFOV (BIKTARVY) 50-200-25 MG TABLET PO SCH (07:44)
[2023-04-09] MEDS: PRENATAL VITAMINS W/ FOLIC ACID TABLET (FP) PO SCH (09:50)
[2023-04-09] MEDS: BUDESONIDE/FORMETEROL FUMARATE 80/4.5 mcg INHALER IH SCH ×2 (09:50→21:19)
[2023-04-09] MEDS: ATOVAQUONE 750 MG/5 ML (UNIT-DOSE PACKAGING) PO SCH (09:51)
[2023-04-09] MEDS: NICOTINE 7 MG/24 HOURS TOPICAL PATCH TD SCH (09:52)
[2023-04-09] MEDS: FOLIC ACID 1 MG TABLET (FP) PO SCH (09:52)
[2023-04-09] MEDS: ASPIRIN COATED 81 MG TABLET.EC PO SCH (09:52)
[2023-04-09] MEDS: PANTOPRAZOLE 40 MG TABLET PO SCH (09:52)
[2023-04-09] MEDS: LIDOCAINE 4% PATCH TP SCH (09:53)
[2023-04-09] MEDS: POLYETHYLENE GLYCOL (HEALTHYLAX) 3350 17 GM PACKET PO SCH ×2 (09:53→21:18)
[2023-04-09] MEDS: SULFAMETHOXAZOLE/TRIMETHOPRIM 800MG/160MG D.S. TABLET PO SCH (14:26)
[2023-04-09] MEDS: MELATONIN 5 MG TABLETS PO SCH (21:18)
[2023-04-09] MEDS: LIDOCAINE PATCH REMOVAL MC SCH (21:18)
[2023-04-09] MEDS: ATORVASTATIN CA 20 MG TABLET (FP) PO SCH (21:18)
[2023-04-09] MEDS: THIAMINE HCL 100 MG TABLET (FP) PO SCH (21:19)
[2023-04-09] MEDS: QUEtiapine FUMARATE 200 MG TABLET PO SCH (21:19)
[2023-04-10] MEDS: ACAMPROSATE CALCIUM 333 MG TABLET.DR PO SCH ×3 (05:34→21:16)
[2023-04-10] MEDS: GABAPENTIN 100 MG CAPSULE PO SCH ×3 (05:34→21:16)
[2023-04-10] MEDS: BICTEGRAV/EMTRICIT/TENOFOV (BIKTARVY) 50-200-25 MG TABLET PO SCH (07:10)
[2023-04-10] MEDS: PANTOPRAZOLE 40 MG TABLET PO SCH (09:29)
[2023-04-10] MEDS: ASPIRIN COATED 81 MG TABLET.EC PO SCH (09:29)
[2023-04-10] MEDS: SULFAMETHOXAZOLE/TRIMETHOPRIM 800MG/160MG D.S. TABLET PO SCH (09:29)
[2023-04-10] MEDS: PRENATAL VITAMINS W/ FOLIC ACID TABLET (FP) PO SCH (09:29)
[2023-04-10] MEDS: FOLIC ACID 1 MG TABLET (FP) PO SCH (09:29)
[2023-04-10] MEDS: ATOVAQUONE 750 MG/5 ML (UNIT-DOSE PACKAGING) PO SCH (09:29)
[2023-04-10] MEDS: BUDESONIDE/FORMETEROL FUMARATE 80/4.5 mcg INHALER IH SCH ×2 (09:29→21:18)
[2023-04-10] MEDS: POLYETHYLENE GLYCOL (HEALTHYLAX) 3350 17 GM PACKET PO SCH ×2 (09:31→21:15)
[2023-04-10] MEDS: NICOTINE 7 MG/24 HOURS TOPICAL PATCH TD SCH (09:31)
[2023-04-10] MEDS: LIDOCAINE 4% PATCH TP SCH (09:31)
[2023-04-10] MEDS: ERGOCALCIFEROL (VIT D2) 50,000 UNIT (1.25 MG) CAPSULE PO SCH (09:39)
[2023-04-10] MEDS: QUEtiapine FUMARATE 200 MG TABLET PO SCH (21:15)
[2023-04-10] MEDS: THIAMINE HCL 100 MG TABLET (FP) PO SCH (21:16)
[2023-04-10] MEDS: ATORVASTATIN CA 20 MG TABLET (FP) PO SCH (21:16)
[2023-04-10] MEDS: LIDOCAINE PATCH REMOVAL MC SCH (21:16)
[2023-04-10] MEDS: MELATONIN 5 MG TABLETS PO SCH (21:17)
[2023-04-11] MEDS: ACAMPROSATE CALCIUM 333 MG TABLET.DR PO SCH ×3 (05:45→21:25)
[2023-04-11] MEDS: GABAPENTIN 100 MG CAPSULE PO SCH ×3 (05:46→21:25)
[2023-04-11] MEDS: BICTEGRAV/EMTRICIT/TENOFOV (BIKTARVY) 50-200-25 MG TABLET PO SCH (07:02)
[2023-04-11] MEDS: PRENATAL VITAMINS W/ FOLIC ACID TABLET (FP) PO SCH (09:50)
[2023-04-11] MEDS: ATOVAQUONE 750 MG/5 ML (UNIT-DOSE PACKAGING) PO SCH (09:51)
[2023-04-11] MEDS: BUDESONIDE/FORMETEROL FUMARATE 80/4.5 mcg INHALER IH SCH ×2 (09:51→21:26)
[2023-04-11] MEDS: POLYETHYLENE GLYCOL (HEALTHYLAX) 3350 17 GM PACKET PO SCH ×2 (09:52→21:25)
[2023-04-11] MEDS: SULFAMETHOXAZOLE/TRIMETHOPRIM 800MG/160MG D.S. TABLET PO SCH (09:52)
[2023-04-11] MEDS: PANTOPRAZOLE 40 MG TABLET PO SCH (09:52)
[2023-04-11] MEDS: NICOTINE 7 MG/24 HOURS TOPICAL PATCH TD SCH (09:52)
[2023-04-11] MEDS: ASPIRIN COATED 81 MG TABLET.EC PO SCH (09:52)
[2023-04-11] MEDS: FOLIC ACID 1 MG TABLET (FP) PO SCH (09:52)
[2023-04-11] MEDS: LIDOCAINE 4% PATCH TP SCH (09:54)
[2023-04-11] MEDS: LIDOCAINE PATCH REMOVAL MC SCH (21:25)
[2023-04-11] MEDS: ATORVASTATIN CA 20 MG TABLET (FP) PO SCH (21:25)
[2023-04-11] MEDS: MELATONIN 5 MG TABLETS PO SCH (21:25)
[2023-04-11] MEDS: QUEtiapine FUMARATE 200 MG TABLET PO SCH (21:26)
[2023-04-11] MEDS: THIAMINE HCL 100 MG TABLET (FP) PO SCH (21:26)
[2023-04-12] MEDS: ACETAMINOPHEN 325 MG TABLET (FP) PO PRN (02:46)
[2023-04-12] MEDS: GABAPENTIN 100 MG CAPSULE PO SCH ×3 (06:29→21:11)
[2023-04-12] MEDS: ACAMPROSATE CALCIUM 333 MG TABLET.DR PO SCH ×3 (06:29→21:11)
[2023-04-12] MEDS: BICTEGRAV/EMTRICIT/TENOFOV (BIKTARVY) 50-200-25 MG TABLET PO SCH (07:23)
[2023-04-12] MEDS: PRENATAL VITAMINS W/ FOLIC ACID TABLET (FP) PO SCH (09:41)
[2023-04-12] MEDS: NICOTINE 7 MG/24 HOURS TOPICAL PATCH TD SCH (09:41)
[2023-04-12] MEDS: BUDESONIDE/FORMETEROL FUMARATE 80/4.5 mcg INHALER IH SCH ×2 (09:42→21:11)
[2023-04-12] MEDS: SULFAMETHOXAZOLE/TRIMETHOPRIM 800MG/160MG D.S. TABLET PO SCH (09:42)
[2023-04-12] MEDS: ASPIRIN COATED 81 MG TABLET.EC PO SCH (09:42)
[2023-04-12] MEDS: POLYETHYLENE GLYCOL (HEALTHYLAX) 3350 17 GM PACKET PO SCH ×2 (09:42→22:03)
[2023-04-12] MEDS: FOLIC ACID 1 MG TABLET (FP) PO SCH (09:42)
[2023-04-12] MEDS: PANTOPRAZOLE 40 MG TABLET PO SCH (09:42)
[2023-04-12] MEDS: ATOVAQUONE 750 MG/5 ML (UNIT-DOSE PACKAGING) PO SCH (09:43)
[2023-04-12] MEDS: LIDOCAINE 4% PATCH TP SCH (09:43)
[2023-04-12] MEDS: ATORVASTATIN CA 20 MG TABLET (FP) PO SCH (21:11)
[2023-04-12] MEDS: LIDOCAINE PATCH REMOVAL MC SCH (21:11)
[2023-04-12] MEDS: MELATONIN 5 MG TABLETS PO SCH (21:11)
[2023-04-12] MEDS: THIAMINE HCL 100 MG TABLET (FP) PO SCH (21:11)
[2023-04-12] MEDS: QUEtiapine FUMARATE 200 MG TABLET PO SCH (21:13)
[2023-04-13] MEDS: ACETAMINOPHEN 325 MG TABLET (FP) PO PRN (03:03)
[2023-04-13] MEDS: GABAPENTIN 100 MG CAPSULE PO SCH ×3 (06:08→21:45)
[2023-04-13] MEDS: ACAMPROSATE CALCIUM 333 MG TABLET.DR PO SCH ×3 (06:08→21:45)
[2023-04-13] MEDS: BICTEGRAV/EMTRICIT/TENOFOV (BIKTARVY) 50-200-25 MG TABLET PO SCH (07:41)
[2023-04-13] MEDS: ATOVAQUONE 750 MG/5 ML (UNIT-DOSE PACKAGING) PO SCH (07:48)
[2023-04-13] MEDS: PRENATAL VITAMINS W/ FOLIC ACID TABLET (FP) PO SCH (09:39)
[2023-04-13] MEDS: LIDOCAINE 4% PATCH TP SCH (09:39)
[2023-04-13] MEDS: PANTOPRAZOLE 40 MG TABLET PO SCH (09:40)
[2023-04-13] MEDS: FOLIC ACID 1 MG TABLET (FP) PO SCH (09:40)
[2023-04-13] MEDS: BUDESONIDE/FORMETEROL FUMARATE 80/4.5 mcg INHALER IH SCH ×2 (09:40→21:47)
[2023-04-13] MEDS: ASPIRIN COATED 81 MG TABLET.EC PO SCH (09:40)
[2023-04-13] MEDS: SULFAMETHOXAZOLE/TRIMETHOPRIM 800MG/160MG D.S. TABLET PO SCH (09:40)
[2023-04-13] MEDS: NICOTINE 7 MG/24 HOURS TOPICAL PATCH TD SCH (09:41)
[2023-04-13] MEDS: POLYETHYLENE GLYCOL (HEALTHYLAX) 3350 17 GM PACKET PO SCH ×2 (09:41→21:46)
[2023-04-13] MEDS: LIDOCAINE PATCH REMOVAL MC SCH (21:45)
[2023-04-13] MEDS: THIAMINE HCL 100 MG TABLET (FP) PO SCH (21:45)
[2023-04-13] MEDS: ATORVASTATIN CA 20 MG TABLET (FP) PO SCH (21:45)
[2023-04-13] MEDS: MELATONIN 5 MG TABLETS PO SCH (21:47)
[2023-04-13] MEDS: QUEtiapine FUMARATE 200 MG TABLET PO SCH (21:47)
[2023-04-14] MEDS: ACETAMINOPHEN 325 MG TABLET (FP) PO PRN (02:02)
[2023-04-14] MEDS: GABAPENTIN 100 MG CAPSULE PO SCH ×3 (06:23→21:06)
[2023-04-14] MEDS: ACAMPROSATE CALCIUM 333 MG TABLET.DR PO SCH ×3 (06:24→21:06)
[2023-04-14] MEDS: BICTEGRAV/EMTRICIT/TENOFOV (BIKTARVY) 50-200-25 MG TABLET PO SCH (07:14)
[2023-04-14] MEDS: ATOVAQUONE 750 MG/5 ML (UNIT-DOSE PACKAGING) PO SCH (07:48)
[2023-04-14] MEDS: PRENATAL VITAMINS W/ FOLIC ACID TABLET (FP) PO SCH (09:35)
[2023-04-14] MEDS: FOLIC ACID 1 MG TABLET (FP) PO SCH (09:35)
[2023-04-14] MEDS: SULFAMETHOXAZOLE/TRIMETHOPRIM 800MG/160MG D.S. TABLET PO SCH (09:35)
[2023-04-14] MEDS: PANTOPRAZOLE 40 MG TABLET PO SCH (09:35)
[2023-04-14] MEDS: ASPIRIN COATED 81 MG TABLET.EC PO SCH (09:35)
[2023-04-14] MEDS: BUDESONIDE/FORMETEROL FUMARATE 80/4.5 mcg INHALER IH SCH ×2 (09:35→21:07)
[2023-04-14] MEDS: POLYETHYLENE GLYCOL (HEALTHYLAX) 3350 17 GM PACKET PO SCH ×2 (09:36→21:07)
[2023-04-14] MEDS: LIDOCAINE 4% PATCH TP SCH (09:36)
[2023-04-14] MEDS: NICOTINE 7 MG/24 HOURS TOPICAL PATCH TD SCH (09:37)
[2023-04-14] MEDS: THIAMINE HCL 100 MG TABLET (FP) PO SCH (21:06)
[2023-04-14] MEDS: MELATONIN 5 MG TABLETS PO SCH (21:06)
[2023-04-14] MEDS: ATORVASTATIN CA 20 MG TABLET (FP) PO SCH (21:06)
[2023-04-14] MEDS: LIDOCAINE PATCH REMOVAL MC SCH (21:07)
[2023-04-14] MEDS: QUEtiapine FUMARATE 200 MG TABLET PO SCH (21:07)
[2023-04-15] MEDS: ACETAMINOPHEN 325 MG TABLET (FP) PO PRN ×3 (01:12→21:18)
[2023-04-15] MEDS: ACAMPROSATE CALCIUM 333 MG TABLET.DR PO SCH ×3 (06:08→21:17)
[2023-04-15] MEDS: GABAPENTIN 100 MG CAPSULE PO SCH ×3 (06:08→21:17)
[2023-04-15] MEDS: ZINC OXIDE 20% TOPICAL OINTMENT 30 GM TUBE TP PRN (06:09)
[2023-04-15] MEDS: BICTEGRAV/EMTRICIT/TENOFOV (BIKTARVY) 50-200-25 MG TABLET PO SCH (07:04)
[2023-04-15] MEDS: ATOVAQUONE 750 MG/5 ML (UNIT-DOSE PACKAGING) PO SCH (09:43)
[2023-04-15] MEDS: PRENATAL VITAMINS W/ FOLIC ACID TABLET (FP) PO SCH (09:43)
[2023-04-15] MEDS: BUDESONIDE/FORMETEROL FUMARATE 80/4.5 mcg INHALER IH SCH ×2 (09:43→21:18)
[2023-04-15] MEDS: POLYETHYLENE GLYCOL (HEALTHYLAX) 3350 17 GM PACKET PO SCH ×2 (09:43→21:17)
[2023-04-15] MEDS: SULFAMETHOXAZOLE/TRIMETHOPRIM 800MG/160MG D.S. TABLET PO SCH (09:44)
[2023-04-15] MEDS: PANTOPRAZOLE 40 MG TABLET PO SCH (09:44)
[2023-04-15] MEDS: ASPIRIN COATED 81 MG TABLET.EC PO SCH (09:44)
[2023-04-15] MEDS: NICOTINE 7 MG/24 HOURS TOPICAL PATCH TD SCH (09:45)
[2023-04-15] MEDS: LIDOCAINE 4% PATCH TP SCH (09:45)
[2023-04-15] MEDS: FOLIC ACID 1 MG TABLET (FP) PO SCH (09:45)
[2023-04-15] MEDS: ATORVASTATIN CA 20 MG TABLET (FP) PO SCH (21:17)
[2023-04-15] MEDS: THIAMINE HCL 100 MG TABLET (FP) PO SCH (21:17)
[2023-04-15] MEDS: MELATONIN 5 MG TABLETS PO SCH (21:18)
[2023-04-15] MEDS: QUEtiapine FUMARATE 200 MG TABLET PO SCH (21:18)
[2023-04-15] MEDS: LIDOCAINE PATCH REMOVAL MC SCH (21:18)
[2023-04-16] MEDS: ACETAMINOPHEN 325 MG TABLET (FP) PO PRN (03:07)
[2023-04-16] MEDS: GABAPENTIN 100 MG CAPSULE PO SCH (05:58)
[2023-04-16] MEDS: ACAMPROSATE CALCIUM 333 MG TABLET.DR PO SCH (05:58)
[2023-04-16 06:41] VITALS: BP 133/67; PULSE 79; RESP 16; TEMP 97.6
[2023-04-16] MEDS: BICTEGRAV/EMTRICIT/TENOFOV (BIKTARVY) 50-200-25 MG TABLET PO SCH (07:05)
[2023-04-16] MEDS: ASPIRIN COATED 81 MG TABLET.EC PO SCH (09:42)
[2023-04-16] MEDS: PANTOPRAZOLE 40 MG TABLET PO SCH (09:42)
[2023-04-16] MEDS: LIDOCAINE 4% PATCH TP SCH (09:42)
[2023-04-16] MEDS: FOLIC ACID 1 MG TABLET (FP) PO SCH (09:42)
[2023-04-16] MEDS: SULFAMETHOXAZOLE/TRIMETHOPRIM 800MG/160MG D.S. TABLET PO SCH (09:42)
[2023-04-16] MEDS: PRENATAL VITAMINS W/ FOLIC ACID TABLET (FP) PO SCH (09:43)
[2023-04-16] MEDS: ATOVAQUONE 750 MG/5 ML (UNIT-DOSE PACKAGING) PO SCH (09:44)
[2023-04-16] MEDS: POLYETHYLENE GLYCOL (HEALTHYLAX) 3350 17 GM PACKET PO SCH (09:45)
[2023-04-16] MEDS: BUDESONIDE/FORMETEROL FUMARATE 80/4.5 mcg INHALER IH SCH (09:45)
[2023-04-16] MEDS: NICOTINE 7 MG/24 HOURS TOPICAL PATCH TD SCH (09:45)
== END 2023-04-16 09:55 | disposition home or self-care (01) | DRG 772 ==
LOC: YASAS 16:12 → Y5N 20:36
PROVIDERS: ADMIT Allergy & Immunology; ATTEND Psychiatry & Neurology Pain Medicine
PROC: HZ42ZZZ Group Counseling for Substance Abuse Treatment, Cognitive-Behavioral (ICD-10-PCS; principal; 2023-03-25)
DX: F10.20 Alcohol dependence, uncomplicated (principal); F14.20 Cocaine dependence, uncomplicated; F17.210 Nicotine dependence, cigarettes, uncomplicated; F19.282 Other psychoactive substance dependence with psychoactive substance-induced sleep disorder; Z21 Asymptomatic human immunodeficiency virus [HIV] infection status; J45.909 Unspecified asthma, uncomplicated; K21.9 Gastro-esophageal reflux disease without esophagitis; M17.0 Bilateral primary osteoarthritis of knee; M54.50 Low back pain, unspecified; G89.29 Other chronic pain; R56.9 Unspecified convulsions; R73.03 Prediabetes; Z86.59 Personal history of other mental and behavioral disorders; Z99.89 Dependence on other enabling machines and devices; Z88.8 Allergy status to other drugs, medicaments and biological substances
CPT/HCPCS: 36415; 86359; 86360; 87635

== ENCOUNTER 2023-06-07 16:27 | Inpatient (IN) | payer OTHER ==
[2023-06-07 17:15] VITALS: BMI 42.9
[2023-06-07] MEDS ORDERED: ALBUTEROL SO4 HFA INHALER IH PRN (22:28)
[2023-06-07] MEDS ORDERED: BISMUTH SUBSALICYLATE 524 MG/30 ML PO PRN (22:30)
[2023-06-07] MEDS ORDERED: BENZONATATE 200 MG CAPSULE PO PRN (22:30)
[2023-06-07] MEDS ORDERED: ACETAMINOPHEN 325 MG TABLET (FP) PO PRN ×2 (22:30→22:33)
[2023-06-07] MEDS ORDERED: LOPERAMIDE HCL 2 MG CAPSULE PO PRN (22:30)
[2023-06-07] MEDS ORDERED: NICOTINE POLACRILEX 2 MG GUM BUC PRN (22:30)
[2023-06-07] MEDS ORDERED: DICYCLOMINE HCL 10 MG CAPSULE PO PRN (22:30)
[2023-06-07] MEDS ORDERED: ONDANSETRON *ODT* 4 MG TABLET SL PRN (22:30)
[2023-06-07] MEDS ORDERED: IBUPROFEN 400 MG TABLET (FP) PO PRN (22:30)
[2023-06-07] MEDS ORDERED: P-EPHED 60MG/TRIPROLIDI 2.5MG TABLET PO PRN (22:30)
[2023-06-07] MEDS ORDERED: POLYETHYLENE GLYCOL (HEALTHYLAX) 3350 17 GM PACKET PO PRN (22:30)
[2023-06-07] MEDS ORDERED: BENZOCAINE/MENTHOL (CHLORASEPTIC ) LOZENGE MM PRN (22:30)
[2023-06-07] MEDS ORDERED: MAGNESIUM HYDROX 2400MG/30ML ORAL SUSPENSION 30 ML CUP PO PRN (22:30)
[2023-06-07] MEDS ORDERED: guaiFENesin 600 MG TABLET.ER (FP) PO PRN (22:30)
[2023-06-07] MEDS ORDERED: chlordiazePOXIDE HCL 25 MG CAPSULE PO PRN (22:34)
[2023-06-07] MEDS ORDERED: chlordiazePOXIDE HCL 25 MG CAPSULE ONE (23:11)
[2023-06-07] MEDS: chlordiazePOXIDE HCL 25 MG CAPSULE PO SCH (23:13)
[2023-06-08] MEDS: FOLIC ACID 1 MG TABLET (FP) PO SCH (10:42)
[2023-06-08] MEDS: NICOTINE 7 MG/24 HOURS TOPICAL PATCH TD SCH (10:42)
[2023-06-08] MEDS: ASPIRIN COATED 81 MG TABLET.EC PO SCH (10:42)
[2023-06-08] MEDS: SULFAMETHOXAZOLE/TRIMETHOPRIM 800MG/160MG D.S. TABLET PO SCH (10:42)
[2023-06-08] MEDS: PANTOPRAZOLE 40 MG TABLET PO SCH (10:43)
[2023-06-08] MEDS: BUDESONIDE/FORMETEROL FUMARATE 80/4.5 mcg INHALER IH SCH (10:43)
[2023-06-08] MEDS: PRENATAL VITAMINS W/ FOLIC ACID TABLET (FP) PO SCH (10:43)
[2023-06-08] MEDS: BICTEGRAV/EMTRICIT/TENOFOV (BIKTARVY) 50-200-25 MG TABLET PO SCH (12:46)
[2023-06-08] MEDS: IBUPROFEN 600 MG TABLET (FP) PO PRN (12:51)
[2023-06-08] MEDS: hydrOXYzine PAMOATE 25 MG CAPSULE (FP) PO PRN (12:51)
[2023-06-08 13:41] LABS: HEMATOCRIT 35.5 % (35.4-49); HEMOGLOBIN 12.1 GM/dL (11.7-16.9); MCH 31.6 pg (25.7-33.7); MCHC 34.2 g/dl (32.0-35.9); MEAN CELL VOLUME 92.5 fl (80-96); MEAN PLT VOLUME 9.1 fl (7.5-11.1); PLATELET COUNT 246 10^3/uL (134-434); RBC 3.84 M/mm3 (4.00-5.60); RDW 13.9 % (11.9-15.9); WHITE BLOOD COUNT 4.8 K/mm3 (4.0-10.0)
[2023-06-08 14:02] LABS: POTASSIUM 3.6 mmol/L (3.5-5.1)
[2023-06-08 14:04] LABS: ALBUMIN 3.5 g/dl (3.4-5.0); BLOOD UREA NITROGEN 13.2 mg/dL (7-18); CALCIUM 9.2 mg/dL (8.5-10.1)
[2023-06-08] MEDS: GABAPENTIN 100 MG CAPSULE PO SCH (14:07)
[2023-06-08 14:09] LABS: BILIRUBIN,TOTAL 0.4 mg/dL (0.2-1); TOT PROT 6.8 g/dl (6.4-8.2)
[2023-06-08] MEDS ORDERED: MELATONIN 5 MG TABLETS PO SCH (22:00)
[2023-06-08] MEDS: QUEtiapine FUMARATE 50 MG TABLET PO SCH (22:51)
[2023-06-08] MEDS: THIAMINE HCL 100 MG TABLET (FP) PO SCH (22:52)
[2023-06-08] MEDS: ATORVASTATIN CA 10 MG TABLET (FP) PO SCH (22:52)
[2023-06-09] MEDS: chlordiazePOXIDE HCL 25 MG CAPSULE PO SCH (06:00)
[2023-06-10] MEDS ORDERED: chlordiazePOXIDE HCL 10 MG CAPSULE PO PRN
[2023-06-10] MEDS: chlordiazePOXIDE HCL 10 MG CAPSULE PO SCH (05:35)
[2023-06-11] MEDS: chlordiazePOXIDE HCL 10 MG CAPSULE PO SCH (05:51)
[2023-06-11] MEDS: NIFEdipine E.R 60 MG TABLET PO SCH (12:15)
[2023-06-12] MEDS: chlordiazePOXIDE HCL 10 MG CAPSULE PO ONE (05:52)
[2023-06-12] MEDS: MAG HYDROX/AL HYDROX/SIMETH 30 ML UNIT-DOSE CUP PO PRN (10:11)
[2023-06-13 06:27] VITALS: TEMP 98.2
[2023-06-13 09:11] VITALS: BP 129/78; PULSE 89; RESP 18
== END 2023-06-13 12:11 | disposition other institution (70) | DRG 774 ==
LOC: YASAS 16:27 → Y3N 06-08 02:01
PROVIDERS: ADMIT Allergy & Immunology; ATTEND Allergy & Immunology
PROC: HZ2ZZZZ Detoxification Services for Substance Abuse Treatment (ICD-10-PCS; principal; 2023-06-08)
DX: F10.230 Alcohol dependence with withdrawal, uncomplicated (principal); F14.20 Cocaine dependence, uncomplicated; F17.210 Nicotine dependence, cigarettes, uncomplicated; F19.282 Other psychoactive substance dependence with psychoactive substance-induced sleep disorder; F31.9 Bipolar disorder, unspecified; F41.9 Anxiety disorder, unspecified; Z21 Asymptomatic human immunodeficiency virus [HIV] infection status; E78.2 Mixed hyperlipidemia; J45.909 Unspecified asthma, uncomplicated; J21.9 Acute bronchiolitis, unspecified; M16.0 Bilateral primary osteoarthritis of hip; R73.03 Prediabetes; R76.8 Other specified abnormal immunological findings in serum; Z86.19 Personal history of other infectious and parasitic diseases; Z88.8 Allergy status to other drugs, medicaments and biological substances
CPT/HCPCS: 0241U-QW; 36415; 71045-TC-FY; 80053; 85027; 86593; 86780; 87635; 93005; 93010

== ENCOUNTER 2023-06-13 12:08 | Inpatient (IN) | payer OTHER ==
[2023-06-13] MEDS ORDERED: IBUPROFEN 400 MG TABLET (FP) PO PRN (14:02)
[2023-06-13] MEDS ORDERED: NALOXONE HCL 0.4 MG/ML VIAL IVPUSH PRN (14:02)
[2023-06-13] MEDS ORDERED: NALOXONE HCL (KLOXXADO) 8 MG SPRAY NS PRN (14:02)
[2023-06-13] MEDS ORDERED: ACETAMINOPHEN 325 MG TABLET (FP) PO PRN (14:02)
[2023-06-13] MEDS ORDERED: hydrOXYzine PAMOATE 25 MG CAPSULE (FP) PO PRN (14:02)
[2023-06-13] MEDS ORDERED: METHOCARBAMOL 500 MG TABLET PO PRN (14:02)
[2023-06-13] MEDS ORDERED: guaiFENesin 600 MG TABLET.ER (FP) PO PRN (14:02)
[2023-06-13] MEDS ORDERED: BENZONATATE 200 MG CAPSULE PO PRN (14:02)
[2023-06-13] MEDS: BACLOFEN 10 MG TABLET (FP) PO PRN (14:50)
[2023-06-13] MEDS: PRENATAL VITAMINS W/ FOLIC ACID TABLET (FP) PO SCH (14:50)
[2023-06-13] MEDS: IBUPROFEN 600 MG TABLET (FP) PO PRN (14:50)
[2023-06-13] MEDS: LIDOCAINE 5% TOPICAL PATCH TP SCH (14:53)
[2023-06-13] MEDS: MELATONIN 5 MG TABLETS PO SCH (21:11)
[2023-06-13] MEDS: THIAMINE HCL 100 MG TABLET (FP) PO SCH (21:11)
[2023-06-13] MEDS: GABAPENTIN 100 MG CAPSULE PO SCH (21:12)
[2023-06-13] MEDS: ATORVASTATIN CA 20 MG TABLET (FP) PO SCH (21:12)
[2023-06-13] MEDS: ACAMPROSATE CALCIUM 333 MG TABLET.DR PO SCH (21:12)
[2023-06-13] MEDS: LIDOCAINE PATCH REMOVAL MC SCH (21:12)
[2023-06-13] MEDS: QUEtiapine FUMARATE 200 MG TABLET PO SCH (21:12)
[2023-06-14] MEDS: BICTEGRAV/EMTRICIT/TENOFOV (BIKTARVY) 50-200-25 MG TABLET PO SCH (08:41)
[2023-06-14] MEDS: PANTOPRAZOLE 40 MG TABLET PO SCH (10:01)
[2023-06-14] MEDS: NIFEdipine E.R 60 MG TABLET PO SCH (10:01)
[2023-06-14] MEDS: SULFAMETHOXAZOLE/TRIMETHOPRIM 800MG/160MG D.S. TABLET PO SCH (10:01)
[2023-06-14] MEDS: NICOTINE 21 MG/24 HOURS TOPICAL PATCH TD SCH (10:02)
[2023-06-15] MEDS: MAG HYDROX/AL HYDROX/SIMETH 30 ML UNIT-DOSE CUP PO PRN (15:36)
[2023-06-17] MEDS: LOPERAMIDE HCL 2 MG CAPSULE PO PRN (10:59)
[2023-06-17] MEDS ORDERED: ONDANSETRON *ODT* 4 MG TABLET SL PRN (11:16)
[2023-06-17] MEDS: RIFAXIMIN 550 MG TABLET PO SCH (12:50)
[2023-06-18] MEDS ORDERED: NICOTINE 21 MG/24 HOURS TOPICAL PATCH TD PRN (11:08)
[2023-06-18 12:27] LABS: INR 0.95 (0.83-1.09)
[2023-06-20] MEDS: ASPIRIN COATED 81 MG TABLET.EC PO SCH (13:02)
[2023-06-20] MEDS: INSULIN ASPART SLIDING SCALE (NOVOLOG) 1 VIAL SQ SCH (17:11)
[2023-06-21] MEDS ORDERED: INSULIN (NOVOLOG) ASPART 100 UNITS/ML 10ML VIAL ONE (06:23)
[2023-06-22] MEDS: ALBUTEROL SO4 HFA INHALER IH PRN (12:47)
[2023-06-22] MEDS: POLYETHYLENE GLYCOL (HEALTHYLAX) 3350 17 GM PACKET PO PRN (13:00)
[2023-06-22] MEDS: BUDESONIDE/FORMETEROL FUMARATE 80/4.5 mcg INHALER IH SCH (21:22)
[2023-06-23] MEDS: MAGNESIUM HYDROX 2400MG/30ML ORAL SUSPENSION 30 ML CUP PO PRN (10:05)
[2023-06-24] MEDS ORDERED: INSULIN (NOVOLOG) ASPART 100 UNITS/ML 10ML VIAL ONE ×2 (06:16→11:51)
[2023-06-25] MEDS ORDERED: INSULIN (NOVOLOG) ASPART 100 UNITS/ML 10ML VIAL ONE (06:27)
[2023-06-25] MEDS: INSULIN ASPART SLIDING SCALE (NOVOLOG) 1 VIAL SQ SCH (10:50)
[2023-06-26] MEDS ORDERED: INSULIN (NOVOLOG) ASPART 100 UNITS/ML 10ML VIAL ONE (07:53)
[2023-06-26] MEDS ORDERED: RIFAXIMIN 550 MG TABLET PO SCH (10:00)
[2023-06-27] MEDS: BENZOCAINE/MENTHOL (CHLORASEPTIC ) LOZENGE MM PRN (06:23)
[2023-06-27] MEDS ORDERED: INSULIN (NOVOLOG) ASPART 100 UNITS/ML 10ML VIAL ONE (07:42)
[2023-06-28] MEDS ORDERED: INSULIN (NOVOLOG) ASPART 100 UNITS/ML 10ML VIAL ONE (06:05)
[2023-06-28] MEDS: SULFAMETHOXAZOLE/TRIMETHOPRIM 800MG/160MG D.S. TABLET PO SCH (12:31)
[2023-06-28] MEDS: BENZOCAINE 20 % GEL TUBE MM PRN (14:05)
[2023-06-29] MEDS ORDERED: INSULIN (NOVOLOG) ASPART 100 UNITS/ML 10ML VIAL ONE (06:18)
[2023-06-30] MEDS ORDERED: INSULIN (NOVOLOG) ASPART 100 UNITS/ML 10ML VIAL ONE ×2 (06:27→16:54)
[2023-06-30] MEDS: guaiFENesin 200 MG/10 ML 10 ML UNIT-DOSE CUPS PO PRN (09:53)
[2023-07-01] MEDS ORDERED: INSULIN (NOVOLOG) ASPART 100 UNITS/ML 10ML VIAL ONE (07:47)
[2023-07-02] MEDS ORDERED: INSULIN (NOVOLOG) ASPART 100 UNITS/ML 10ML VIAL ONE (06:44)
[2023-07-02] MEDS ORDERED: ALBUTEROL SO4 2.5/IPRATROPIUM 0.5 INH SOL 3 ML VIAL.NEB. NEB ONE (21:07)
[2023-07-02] MEDS: ALBUTEROL SO4 2.5/IPRATROPIUM 0.5 INH SOL 3 ML VIAL.NEB. NEB ONE (21:12)
[2023-07-03] MEDS ORDERED: INSULIN (NOVOLOG) ASPART 100 UNITS/ML 10ML VIAL ONE (06:24)
[2023-07-03 09:09] VITALS: RESP 18
[2023-07-03] MEDS: ALBUTEROL SO4 2.5/IPRATROPIUM 0.5 INH SOL 3 ML VIAL.NEB. NEB PRN (09:12)
[2023-07-03] MEDS: AZITHROMYCIN 250 MG TABLET PO ONE (13:15)
[2023-07-03 17:25] VITALS: BP 128/83; PULSE 95
[2023-07-03 18:13] VITALS: TEMP 98
[2023-07-04] MEDS ORDERED: AZITHROMYCIN 250 MG TABLET PO SCH (10:00)
== END 2023-07-04 03:29 | disposition short-term general hospital (02) | DRG 772 ==
LOC: YASAS 12:08 → Y3E 12:10
PROVIDERS: ADMIT Allergy & Immunology; ATTEND Psychiatry & Neurology Pain Medicine
PROC: HZ42ZZZ Group Counseling for Substance Abuse Treatment, Cognitive-Behavioral (ICD-10-PCS; principal; 2023-06-13)
DX: F10.20 Alcohol dependence, uncomplicated (principal); F14.20 Cocaine dependence, uncomplicated; F31.9 Bipolar disorder, unspecified; F41.9 Anxiety disorder, unspecified; Z21 Asymptomatic human immunodeficiency virus [HIV] infection status; E72.20 Disorder of urea cycle metabolism, unspecified; J18.9 Pneumonia, unspecified organism; J02.9 Acute pharyngitis, unspecified; M16.0 Bilateral primary osteoarthritis of hip; R73.03 Prediabetes; K08.89 Other specified disorders of teeth and supporting structures; Z59.00 Homelessness unspecified; Z86.19 Personal history of other infectious and parasitic diseases
CPT/HCPCS: 0241U-QW; 36415; 71045-TC-FY; 82140; 82652; 82962; 83036; 83735; 85610; 86803; 94640; J0475

== ENCOUNTER 2023-07-03 20:17 | Inpatient (IN) | payer OTHER ==
[2023-07-03 22:05] LABS: BASO % 0.6 % (0-2.0); EOS % 2.3 % (0-4.5); HEMATOCRIT 36.4 % (35.4-49); HEMOGLOBIN 12.6 GM/dL (11.7-16.9); LYMPH % 14.7 % (8-40); MCHC 34.5 g/dl (32.0-35.9); MONO % 10.5 % (3.8-10.2); NEUT % 71.9 % (42.8-82.8); PLATELET COUNT 224 10^3/uL (134-434); RBC 4.05 M/mm3 (4.00-5.60); RDW 14.3 % (11.9-15.9); WHITE BLOOD COUNT 6.3 K/mm3 (4.0-10.0)
[2023-07-03] MEDS ORDERED: PIPERACILLIN/TAZOB 3.375 GM 3.375 GM/50 ML BAG IVPB ONE (22:22)
[2023-07-03] MEDS ORDERED: VANCOMYCIN 1 GRAM (PRE-DOCKED) 1,000 MG/250 ML BAG IVPB ONE (22:22)
[2023-07-03 22:24] LABS: POTASSIUM 3.9 mmol/L (3.5-5.1)
[2023-07-03 22:25] LABS: CALCIUM 8.8 mg/dL (8.5-10.1)
[2023-07-03 22:26] LABS: ALBUMIN 3.5 g/dl (3.4-5.0); BLOOD UREA NITROGEN 14.2 mg/dL (7-18); MAGNESIUM 2.2 mg/dL (1.8-2.4)
[2023-07-03 22:27] LABS: VENOUS BASE EXCESS 0.4 mmol/L (-2-2); VENOUS O2 SATURATION 95.7 % (70-80); VENOUS PCO2 35.9 mmHg (38-52); VENOUS PH 7.444 (7.310-7.410)
[2023-07-03 22:29] LABS: CREATININE 1.1 mg/dL (0.55-1.3)
[2023-07-03 22:30] LABS: BILIRUBIN,TOTAL 0.5 mg/dL (0.2-1); TOT PROT 7.3 g/dl (6.4-8.2)
[2023-07-03] MEDS: PIPERACILLIN/TAZOB 3.375 GM 3.375 GM in DEXTROSE 5%-WATER - 50 ML IVPB ONE (22:44)
[2023-07-03] MEDS ORDERED: ALBUTEROL SO4 2.5/IPRATROPIUM 0.5 INH SOL 3 ML VIAL.NEB. NEB ONE (22:49)
[2023-07-03] MEDS ORDERED: DEXAMETHASONE SOD PHOSPHATE 10 MG/1 ML VIAL ONE (22:50)
[2023-07-03] MEDS: VANCOMYCIN 1,000 MG in DEXTROSE 5%-WATER - 250 ML IVPB ONE (23:02)
[2023-07-03] MEDS: DEXAMETHASONE SOD PHOSPHATE 10 MG/1 ML VIAL IVPUSH ONE (23:02)
[2023-07-03] MEDS: ALBUTEROL SO4 2.5/IPRATROPIUM 0.5 INH SOL 3 ML VIAL.NEB. NEB SCH (23:06)
[2023-07-04] MEDS ORDERED: BENZOCAINE 20 % GEL TUBE MM PRN (02:43)
[2023-07-04] MEDS ORDERED: IBUPROFEN 600 MG TABLET (FP) PO PRN (02:44)
[2023-07-04] MEDS: BENZOCAINE/MENTH/CETYLPYRD CL 1 EACH LOZENGE MM PRN ×2 (03:03→10:12)
[2023-07-04] MEDS: ALBUTEROL SO4 2.5/IPRATROPIUM 0.5 INH SOL 3 ML VIAL.NEB. NEB PRN (03:03)
[2023-07-04 07:19] LABS: HEMOGLOBIN 13.3 GM/dL (11.7-16.9); MCH 31.2 pg (25.7-33.7); MCHC 34.2 g/dl (32.0-35.9); MEAN CELL VOLUME 91.1 fl (80-96); MEAN PLT VOLUME 9.6 fl (7.5-11.1); PLATELET COUNT 215 10^3/uL (134-434); RBC 4.28 M/mm3 (4.00-5.60); RDW 14.1 % (11.9-15.9); WHITE BLOOD COUNT 6.5 K/mm3 (4.0-10.0)
[2023-07-04 07:40] LABS: POTASSIUM 4.4 mmol/L (3.5-5.1)
[2023-07-04 07:43] LABS: ALBUMIN 3.5 g/dl (3.4-5.0); BLOOD UREA NITROGEN 15.7 mg/dL (7-18); CALCIUM 8.9 mg/dL (8.5-10.1); MAGNESIUM 2.2 mg/dL (1.8-2.4)
[2023-07-04 07:46] LABS: CREATININE 1.2 mg/dL (0.55-1.3); PHOSPHOROUS 2.7 mg/dL (2.5-4.9)
[2023-07-04 07:48] LABS: BILIRUBIN,TOTAL 0.6 mg/dL (0.2-1); TOT PROT 7.6 g/dl (6.4-8.2)
[2023-07-04] MEDS ORDERED: INSULIN (NOVOLOG) ASPART 100 UNITS/ML 10ML VIAL ONE (09:07)
[2023-07-04] MEDS: INSULIN ASPART SLIDING SCALE (NOVOLOG) 1 VIAL SQ SCH (09:09)
[2023-07-04] MEDS: guaiFENesin 200 MG/10 ML 10 ML UNIT-DOSE CUPS PO PRN (09:10)
[2023-07-04] MEDS: ASPIRIN COATED 81 MG TABLET.EC PO SCH (09:10)
[2023-07-04] MEDS: ENOXAPARIN NA (PORCINE) 40 MG/0.4 ML DISP.SYRIN SQ SCH (09:10)
[2023-07-04] MEDS: IBUPROFEN 600 MG TABLET (FP) PO PRN (09:11)
[2023-07-04] MEDS: PANTOPRAZOLE 40 MG TABLET PO SCH (09:12)
[2023-07-04] MEDS: NIFEdipine E.R 60 MG TABLET PO SCH (09:12)
[2023-07-04] MEDS: ACAMPROSATE CALCIUM 333 MG TABLET.DR PO SCH (09:12)
[2023-07-04] MEDS: SULFAMETHOXAZOLE/TRIMETHOPRIM 800MG/160MG D.S. TABLET PO SCH (09:13)
[2023-07-04] MEDS: FOLIC ACID 1 MG TABLET (FP) PO SCH (09:13)
[2023-07-04 09:27] LABS: URINE APPEARANCE CLEAR; URINE BILIRUBIN NEGATIVE (NEGATIVE); URINE COLOR YELLOW; URINE GLUCOSE (UA) 250 (NEGATIVE); URINE KETONE NEGATIVE (NEGATIVE)
[2023-07-04 09:28] LABS: URINE LEUK ESTERASE TRACE (NEGATIVE); URINE NITRITE NEGATIVE (NEGATIVE); URINE PROTEIN N (NEGATIVE)
[2023-07-04 09:29] LABS: EPI CELLS 9.5 /uL (0-25.1); HYALINE CASTS 0.29 /uL (0-3.1); URINE BACTERIA 8.7 /uL (0-1359); URINE RBC 6.6 /uL (0-23.9); URINE WBC 31.9 /uL (0-25.8)
[2023-07-04] MEDS ORDERED: PIPERACILLIN/TAZOB 3.375 GM 3.375 GM/50 ML BAG IVPB ONE ×2 (10:05→17:13)
[2023-07-04] MEDS ORDERED: oxyCODONE HCL 5 MG TABLET ONE (10:05)
[2023-07-04] MEDS ORDERED: BENZOCAINE/MENTH/CETYLPYRD CL 1 EACH LOZENGE MM ONE (10:05)
[2023-07-04 10:09] LABS: ANISOCYTOSIS 1+; MACROCYTOSIS 0
[2023-07-04] MEDS: oxyCODONE HCL 5 MG TABLET PO PRN ×2 (10:10→17:57)
[2023-07-04] MEDS: PIPERACILLIN/TAZOB 3.375 GM 3.375 GM in DEXTROSE 5%-WATER - 50 ML IVPB SCH ×2 (10:12→17:58)
[2023-07-04] MEDS ORDERED: ALBUTEROL SO4 2.5/IPRATROPIUM 0.5 INH SOL 3 ML VIAL.NEB. NEB ONE (10:14)
[2023-07-04] MEDS: BUDESONIDE/FORMETEROL FUMARATE 80/4.5 mcg INHALER IH SCH (12:25)
[2023-07-04 13:11] LABS: HIV INTERPRETATION PRESUMPTIVE POSITIVE (NEGATIVE)
[2023-07-04 17:54] VITALS: BMI 41.9
[2023-07-04] MEDS: ACETAMINOPHEN 325 MG TABLET (FP) PO PRN (17:57)
[2023-07-04] MEDS: ATORVASTATIN CA 20 MG TABLET (FP) PO SCH (21:20)
[2023-07-04] MEDS: QUEtiapine FUMARATE 200 MG TABLET PO SCH (21:20)
[2023-07-05] MEDS: methylPREDNISolone NA SUCC 40 MG/1 ML VIAL IVPUSH SCH (13:53)
[2023-07-05] MEDS: GABAPENTIN 100 MG CAPSULE PO SCH (13:53)
[2023-07-05] MEDS: BICTEGRAV/EMTRICIT/TENOFOV (BIKTARVY) 50-200-25 MG TABLET PO SCH (14:45)
[2023-07-05] MEDS ORDERED: PIPERACILLIN/TAZOBACTAM 3.375 GM VIAL IVPB ONE (17:05)
[2023-07-05] MEDS: ALBUTEROL SO4 HFA INHALER IH PRN (18:42)
[2023-07-05] MEDS ORDERED: INSULIN (NOVOLOG) ASPART 100 UNITS/ML 10ML VIAL ONE (21:52)
[2023-07-07] MEDS ORDERED: INSULIN (NOVOLOG) ASPART 100 UNITS/ML 10ML VIAL ONE ×2 (06:45→17:25)
[2023-07-07] MEDS: PIPERACILLIN/TAZOB 3.375 GM 3.375 GM in DEXTROSE 5%-WATER - 50 ML IVPB SCH (10:42)
[2023-07-07] MEDS ORDERED: PIPERACILLIN/TAZOBACTAM 3.375 GM VIAL IVPB ONE (16:47)
[2023-07-08] MEDS: ACETAMINOPHEN 325 MG TABLET (FP) PO PRN (01:01)
[2023-07-08] MEDS: oxyCODONE HCL 5 MG TABLET PO ONE (04:04)
[2023-07-08 05:26] VITALS: RESP 18
[2023-07-08 10:25] VITALS: BP 133/86; PULSE 85; TEMP 98
[2023-07-08] MEDS: predniSONE 20 MG TABLET (UD) PO SCH (10:49)
[2023-07-08] MEDS ORDERED: AMOX TR/POT CLAV 875MG/125MG TABLETS (FP) PO SCH (17:30)
[2023-07-10] MEDS ORDERED: ERGOCALCIFEROL (VIT D2) 50,000 UNIT (1.25 MG) CAPSULE PO SCH (10:00)
== END 2023-07-08 11:41 | disposition home or self-care (01) | DRG 894 ==
LOC: JER 20:17 → JERBED 07-04 00:53 → OBSVTOIN 07-04 02:21 → J8W 07-04 17:50
PROVIDERS: ADMIT Internal Medicine; ATTEND Nurse Practitioner Acute Care
DX: J18.9 Pneumonia, unspecified organism (principal); B20 Human immunodeficiency virus [HIV] disease; F14.20 Cocaine dependence, uncomplicated; J45.901 Unspecified asthma with (acute) exacerbation; Z68.41 Body mass index [BMI] 40.0-44.9, adult; E66.01 Morbid (severe) obesity due to excess calories; F10.20 Alcohol dependence, uncomplicated; E78.5 Hyperlipidemia, unspecified; K21.9 Gastro-esophageal reflux disease without esophagitis
CPT/HCPCS: 0241U-QW; 36415; 71045-TC-FY; 71250-TC; 80053; 81003; 82803; 82962; 83605; 83615; 83735; 84100; 84443; 84484; 85025; 86359; 86360; 87040; 87070; 87081; 87086; 87205; 87389; 87536; 87899; 93005; 93010; 97116-GP; 97162-GP; 99285-25; G0378; J1100

== ENCOUNTER 2023-08-06 11:25 | Inpatient (IN) | payer OTHER ==
[2023-08-06 13:00] VITALS: BMI 44.6
[2023-08-06] MEDS ORDERED: chlordiazePOXIDE HCL 25 MG CAPSULE PO PRN (14:05)
[2023-08-06] MEDS ORDERED: cloNIDine HCL 0.1 MG TABLET PO PRN (14:05)
[2023-08-06] MEDS ORDERED: NALOXONE HCL (KLOXXADO) 8 MG SPRAY NS PRN (14:05)
[2023-08-06] MEDS ORDERED: IBUPROFEN 600 MG TABLET (FP) PO PRN (14:05)
[2023-08-06] MEDS ORDERED: DICYCLOMINE HCL 10 MG CAPSULE PO PRN (14:05)
[2023-08-06] MEDS ORDERED: ACETAMINOPHEN 325 MG TABLET (FP) PO PRN (14:05)
[2023-08-06] MEDS ORDERED: hydrOXYzine PAMOATE 25 MG CAPSULE (FP) PO PRN (14:05)
[2023-08-06] MEDS ORDERED: LOPERAMIDE HCL 2 MG CAPSULE PO PRN (14:05)
[2023-08-06] MEDS ORDERED: NALOXONE HCL 0.4 MG/ML VIAL IM PRN (14:05)
[2023-08-06] MEDS ORDERED: POLYETHYLENE GLYCOL (HEALTHYLAX) 3350 17 GM PACKET PO PRN (14:05)
[2023-08-06] MEDS ORDERED: BENZOCAINE/MENTHOL (CHLORASEPTIC ) LOZENGE MM PRN (14:05)
[2023-08-06] MEDS ORDERED: METHOCARBAMOL 500 MG TABLET PO PRN (14:05)
[2023-08-06] MEDS ORDERED: IBUPROFEN 400 MG TABLET (FP) PO PRN (14:05)
[2023-08-06] MEDS ORDERED: BISMUTH SUBSALICYLATE 524 MG/30 ML PO PRN (14:05)
[2023-08-06] MEDS ORDERED: BENZONATATE 200 MG CAPSULE PO PRN (14:05)
[2023-08-06] MEDS ORDERED: MAGNESIUM HYDROX 2400MG/30ML ORAL SUSPENSION 30 ML CUP PO PRN (14:05)
[2023-08-06] MEDS ORDERED: guaiFENesin 600 MG TABLET.ER (FP) PO PRN (14:05)
[2023-08-06] MEDS: methaDONE HCL 10 MG TABLET (FOR DETOX USE ONLY) PO ONE (15:39)
[2023-08-06] MEDS: NICOTINE 7 MG/24 HOURS TOPICAL PATCH TD SCH (15:40)
[2023-08-06] MEDS: PRENATAL VITAMINS W/ FOLIC ACID TABLET (FP) PO SCH (15:40)
[2023-08-06] MEDS ORDERED: methaDONE HCL 10 MG TABLET (FOR DETOX USE ONLY) ONE (15:41)
[2023-08-06] MEDS ORDERED: NICOTINE 7 MG/24 HOURS TOPICAL PATCH TD ONE (15:42)
[2023-08-06] MEDS: ONDANSETRON *ODT* 4 MG TABLET SL PRN (16:01)
[2023-08-06] MEDS ORDERED: ONDANSETRON *ODT* 4 MG TABLET ONE (16:03)
[2023-08-06] MEDS: INSULIN ASPART SLIDING SCALE (NOVOLOG) 1 VIAL SQ SCH (16:53)
[2023-08-06] MEDS: MAG HYDROX/AL HYDROX/SIMETH 30 ML UNIT-DOSE CUP PO PRN (16:58)
[2023-08-06] MEDS: SULFAMETHOXAZOLE/TRIMETHOPRIM 800MG/160MG D.S. TABLET PO SCH (17:07)
[2023-08-06] MEDS: ALBUTEROL SO4 HFA INHALER IH PRN (17:07)
[2023-08-06] MEDS: chlordiazePOXIDE HCL 25 MG CAPSULE PO SCH (17:09)
[2023-08-06] MEDS: PANTOPRAZOLE 20 MG TABLET PO ONE (18:09)
[2023-08-06] MEDS: ATORVASTATIN CA 20 MG TABLET (FP) PO SCH (22:10)
[2023-08-06] MEDS: GABAPENTIN 100 MG CAPSULE PO SCH (22:10)
[2023-08-06] MEDS: ACAMPROSATE CALCIUM 333 MG TABLET.DR PO SCH (22:10)
[2023-08-06] MEDS: QUEtiapine FUMARATE 200 MG TABLET PO SCH (22:10)
[2023-08-06] MEDS: THIAMINE HCL 100 MG TABLET (FP) PO SCH (22:11)
[2023-08-06] MEDS: MELATONIN 5 MG TABLETS PO SCH (22:11)
[2023-08-06] MEDS: BUDESONIDE/FORMETEROL FUMARATE 80/4.5 mcg INHALER IH SCH (22:16)
[2023-08-06] MEDS: BENZOCAINE 20 % GEL TUBE MM PRN (22:30)
[2023-08-07] MEDS: BICTEGRAV/EMTRICIT/TENOFOV (BIKTARVY) 50-200-25 MG TABLET PO SCH (07:26)
[2023-08-07 09:04] VITALS: RESP 20
[2023-08-07] MEDS: NIFEdipine E.R 60 MG TABLET PO SCH (10:56)
[2023-08-07] MEDS: ASPIRIN COATED 81 MG TABLET.EC PO SCH (10:56)
[2023-08-07] MEDS: PANTOPRAZOLE 40 MG TABLET PO SCH (10:56)
[2023-08-07 11:57] LABS: HEMATOCRIT 37.5 % (35.4-49); HEMOGLOBIN 12.8 GM/dL (11.7-16.9); MCH 30.9 pg (25.7-33.7); MCHC 34.1 g/dl (32.0-35.9); MEAN CELL VOLUME 90.7 fl (80-96); MEAN PLT VOLUME 8.6 fl (7.5-11.1); PLATELET COUNT 252 10^3/uL (134-434); RBC 4.14 M/mm3 (4.00-5.60); RDW 15.5 % (11.9-15.9); WHITE BLOOD COUNT 6.1 K/mm3 (4.0-10.0)
[2023-08-07 12:04] LABS: ALBUMIN 3.4 g/dl (3.4-5.0); BLOOD UREA NITROGEN 13.2 mg/dL (7-18)
[2023-08-07 12:06] LABS: BILIRUBIN,TOTAL 0.3 mg/dL (0.2-1); CALCIUM 9.1 mg/dL (8.5-10.1); TOT PROT 6.7 g/dl (6.4-8.2)
[2023-08-07 12:07] LABS: CREATININE 1.2 mg/dL (0.55-1.3)
[2023-08-07 13:15] VITALS: BP 116/66; PULSE 94; TEMP 98.7
[2023-08-07] MEDS: ERGOCALCIFEROL (VIT D2) 50,000 UNIT (1.25 MG) CAPSULE PO SCH (13:26)
[2023-08-08] MEDS ORDERED: chlordiazePOXIDE HCL 25 MG CAPSULE PO SCH (05:00)
[2023-08-08] MEDS ORDERED: methaDONE HCL 10 MG TABLET (FOR DETOX USE ONLY) PO ONE (10:00)
[2023-08-09] MEDS ORDERED: chlordiazePOXIDE HCL 10 MG CAPSULE PO PRN
[2023-08-09] MEDS ORDERED: chlordiazePOXIDE HCL 10 MG CAPSULE PO SCH (05:00)
[2023-08-10] MEDS ORDERED: chlordiazePOXIDE HCL 10 MG CAPSULE PO SCH (05:00)
[2023-08-10] MEDS ORDERED: methaDONE HCL 10 MG TABLET (FOR DETOX USE ONLY) PO ONE (10:00)
[2023-08-11] MEDS ORDERED: chlordiazePOXIDE HCL 10 MG CAPSULE PO ONE (05:00)
== END 2023-08-07 22:50 | disposition short-term general hospital (02) | DRG 773 ==
LOC: YASAS 11:25 → Y6N 14:21 → Y3N 16:24
PROVIDERS: ADMIT Allergy & Immunology; ATTEND Surgery
PROC: HZ2ZZZZ Detoxification Services for Substance Abuse Treatment (ICD-10-PCS; principal; 2023-08-06)
DX: F11.23 Opioid dependence with withdrawal (principal); F10.230 Alcohol dependence with withdrawal, uncomplicated; F14.10 Cocaine abuse, uncomplicated; F17.210 Nicotine dependence, cigarettes, uncomplicated; F19.280 Other psychoactive substance dependence with psychoactive substance-induced anxiety disorder; F19.282 Other psychoactive substance dependence with psychoactive substance-induced sleep disorder; F19.24 Other psychoactive substance dependence with psychoactive substance-induced mood disorder; F25.9 Schizoaffective disorder, unspecified; I25.10 Atherosclerotic heart disease of native coronary artery without angina pectoris; I10 Essential (primary) hypertension; E11.9 Type 2 diabetes mellitus without complications; J45.909 Unspecified asthma, uncomplicated; M54.50 Low back pain, unspecified; G89.29 Other chronic pain; R09.02 Hypoxemia; Z79.4 Long term (current) use of insulin
CPT/HCPCS: 36415; 71046-TC-FY; 80053; 80307; 82140; 82962; 83036; 85027; 86593; 86780; 93005; 93010; Q0162

== ENCOUNTER 2023-08-07 14:12 | Inpatient (IN) | payer OTHER ==
[2023-08-07] MEDS ORDERED: NALOXONE HCL 0.4 MG/ML VIAL ONE ×3 (14:50→20:47)
[2023-08-07] MEDS: NALOXONE HCL 0.4 MG/ML VIAL IVPUSH ONE ×3 (15:06→20:46)
[2023-08-07 15:12] LABS: BASO % 0.4 % (0-2.0); HEMOGLOBIN 12.6 GM/dL (11.7-16.9); LYMPH % 16.9 % (8-40); MCH 30.2 pg (25.7-33.7); MCHC 33.2 g/dl (32.0-35.9); MEAN CELL VOLUME 91.1 fl (80-96); MEAN PLT VOLUME 8.9 fl (7.5-11.1); MONO % 9.7 % (3.8-10.2); PLATELET COUNT 255 10^3/uL (134-434); RBC 4.17 M/mm3 (4.00-5.60); RDW 15.5 % (11.9-15.9); WHITE BLOOD COUNT 5.7 K/mm3 (4.0-10.0)
[2023-08-07 15:16] LABS: VENOUS BASE EXCESS -0.8 mmol/L (-2-2); VENOUS O2 SATURATION 97.8 % (70-80); VENOUS PCO2 50.3 mmHg (38-52); VENOUS PH 7.327 (7.310-7.410)
[2023-08-07 15:20] LABS: INR 0.98 (0.83-1.09); PROTHROMBIN TIME (PATIENT) 11.4 SEC (9.7-13.0)
[2023-08-07 15:22] LABS: ACTIVATED PTT 23.8 SECONDS (25.2-36.5)
[2023-08-07 15:33] LABS: CHLORIDE 107 mmol/L (98-107); SODIUM 137 mmol/L (136-145)
[2023-08-07 15:34] LABS: CALCIUM 8.7 mg/dL (8.5-10.1)
[2023-08-07 15:35] LABS: ALBUMIN 3.1 g/dl (3.4-5.0); CO2 26 mmol/L (21-32); GLUCOSE,RANDOM 130 mg/dL (74-106); MAGNESIUM 2.5 mg/dL (1.8-2.4)
[2023-08-07 15:38] LABS: CREATININE 1.2 mg/dL (0.55-1.3); SGOT/AST 77 U/L (15-37); SGPT/ALT 40 U/L (13-61)
[2023-08-07 15:40] LABS: BILIRUBIN,TOTAL 0.5 mg/dL (0.2-1); TOT PROT 6.9 g/dl (6.4-8.2)
[2023-08-07 15:41] LABS: ALK PHOS 90 U/L (45-117); ANION GAP 3 mmol/L (4-13); POTASSIUM 6.3 mmol/L (3.5-5.1)
[2023-08-07 16:44] LABS: CALCIUM 9.2 mg/dL (8.5-10.1)
[2023-08-07 16:45] LABS: ALBUMIN 3.2 g/dl (3.4-5.0); BLOOD UREA NITROGEN 10.2 mg/dL (7-18); MAGNESIUM 2.2 mg/dL (1.8-2.4)
[2023-08-07 16:48] LABS: CREATININE 1.2 mg/dL (0.55-1.3)
[2023-08-07 16:50] LABS: BILIRUBIN,TOTAL 0.5 mg/dL (0.2-1); TOT PROT 6.2 g/dl (6.4-8.2)
[2023-08-07] MEDS: VANCOMYCIN PREMIX 1.75 GM 1,750 MG/350 ML PIGGYBACK IVPB ONE (16:52)
[2023-08-07] MEDS: PIPERACILLIN/TAZOB 4.5 GM 4.5 GM in DEXTROSE 5%-WATER 100 ML IVPB ONE (16:52)
[2023-08-07] MEDS ORDERED: AMPICILLIN NA/SULBACTAM NA 3 GM/100 ML BAG IVPB ONE (22:44)
[2023-08-07] MEDS: SODIUM CHLORIDE 1,000 ML IV STA (23:03)
[2023-08-07] MEDS: AMPICILLIN NA/SULBACTAM NA 3 GM in DEXTROSE 5%-WATER 100 ML IVPB ONE (23:03)
[2023-08-08] MEDS: VANCOMYCIN PREMIX 1.75 GM 1,750 MG/350 ML PIGGYBACK IVPB SCH (01:34)
[2023-08-08] MEDS: THIAMINE HCL 200 MG/2 ML VIAL IVPB SCH (01:34)
[2023-08-08] MEDS ORDERED: PIPERACILLIN/TAZOB 4.5 GM 4.5 GM in DEXTROSE 5%-WATER 100 ML IVPB SCH (03:00)
[2023-08-08] MEDS: PIPERACILLIN/TAZOB 4.5 GM 4.5 GM in DEXTROSE 5%-WATER 100 ML IVPB SCH (03:29)
[2023-08-08 07:35] LABS: BASO % 0.2 % (0-2.0); EOS % 2.4 % (0-4.5); HEMATOCRIT 35.1 % (35.4-49); HEMOGLOBIN 11.8 GM/dL (11.7-16.9); LYMPH % 16.9 % (8-40); MCH 30.6 pg (25.7-33.7); MCHC 33.7 g/dl (32.0-35.9); MEAN CELL VOLUME 90.9 fl (80-96); MEAN PLT VOLUME 8.2 fl (7.5-11.1); NEUT % 69.5 % (42.8-82.8); PLATELET COUNT 234 10^3/uL (134-434); RBC 3.86 M/mm3 (4.00-5.60); RDW 15.3 % (11.9-15.9); WHITE BLOOD COUNT 4.2 K/mm3 (4.0-10.0)
[2023-08-08] MEDS ORDERED: ALBUTEROL SO4 HFA INHALER IH PRN (07:57)
[2023-08-08 07:59] LABS: ALBUMIN 3.2 g/dl (3.4-5.0); BLOOD UREA NITROGEN 9.8 mg/dL (7-18); CALCIUM 8.6 mg/dL (8.5-10.1); MAGNESIUM 2.2 mg/dL (1.8-2.4)
[2023-08-08 08:02] LABS: CREATININE 1.2 mg/dL (0.55-1.3)
[2023-08-08 08:03] LABS: PHOSPHOROUS 3.8 mg/dL (2.5-4.9)
[2023-08-08 08:04] LABS: BILIRUBIN,TOTAL 0.5 mg/dL (0.2-1); TOT PROT 6.1 g/dl (6.4-8.2)
[2023-08-08] MEDS: BUDESONIDE/FORMETEROL FUMARATE 80/4.5 mcg INHALER IH SCH (09:46)
[2023-08-08] MEDS: PANTOPRAZOLE 40 MG TABLET PO SCH (09:47)
[2023-08-08] MEDS: NIFEdipine E.R 60 MG TABLET PO SCH (09:47)
[2023-08-08] MEDS: ASPIRIN COATED 81 MG TABLET.EC PO SCH (09:47)
[2023-08-08] MEDS: FOLIC ACID 1 MG TABLET (FP) PO SCH (09:47)
[2023-08-08] MEDS: BICTEGRAV/EMTRICIT/TENOFOV (BIKTARVY) 50-200-25 MG TABLET PO SCH (09:47)
[2023-08-08] MEDS: ENOXAPARIN NA (PORCINE) 40 MG/0.4 ML DISP.SYRIN SQ SCH (09:47)
[2023-08-08] MEDS: PIPERACILLIN/TAZOB 3.375 GM 3.375 GM in DEXTROSE 5%-WATER - 50 ML IVPB SCH (09:48)
[2023-08-08] MEDS ORDERED: hydrOXYzine PAMOATE 25 MG CAPSULE (FP) PO PRN (12:21)
[2023-08-08] MEDS: methaDONE HCL 10 MG TABLET PO ONE (13:29)
[2023-08-08] MEDS: GABAPENTIN 100 MG CAPSULE PO SCH (13:36)
[2023-08-08] MEDS: INSULIN ASPART SLIDING SCALE (NOVOLOG) 1 VIAL SQ SCH (13:51)
[2023-08-08] MEDS: ALBUTEROL SO4 2.5/IPRATROPIUM 0.5 INH SOL 3 ML VIAL.NEB. NEB SCH (16:00)
[2023-08-08] MEDS ORDERED: INSULIN ASPART SLIDING SCALE (NOVOLOG) 1 VIAL SQ SCH (16:30)
[2023-08-08] MEDS ORDERED: WATER IVPB SCH (22:04)
[2023-08-08] MEDS ORDERED: VANCOMYCIN HCL IVPB SCH (22:04)
[2023-08-08] MEDS ORDERED: DEXTROSE 5% IVPB SCH (22:04)
[2023-08-08] MEDS: ATORVASTATIN CA 20 MG TABLET (FP) PO SCH (22:45)
[2023-08-08] MEDS: QUEtiapine FUMARATE 100 MG TABLET (FP) PO SCH (22:45)
[2023-08-08] MEDS: ACETAMINOPHEN 1000 MG/100 ML BAG IVPB ONE (22:46)
[2023-08-09 07:40] LABS: BASO % 0.7 % (0-2.0); EOS % 3.5 % (0-4.5); HEMATOCRIT 32.2 % (35.4-49); HEMOGLOBIN 10.9 GM/dL (11.7-16.9); LYMPH % 23.3 % (8-40); MCH 30.8 pg (25.7-33.7); MCHC 33.7 g/dl (32.0-35.9); MEAN CELL VOLUME 91.2 fl (80-96); MEAN PLT VOLUME 8.7 fl (7.5-11.1); MONO % 9.8 % (3.8-10.2); NEUT % 62.7 % (42.8-82.8); PLATELET COUNT 199 10^3/uL (134-434); RBC 3.53 M/mm3 (4.00-5.60); RDW 15.5 % (11.9-15.9); WHITE BLOOD COUNT 2.2 K/mm3 (4.0-10.0)
[2023-08-09 07:43] LABS: POTASSIUM 3.8 mmol/L (3.5-5.1)
[2023-08-09 07:47] LABS: CALCIUM 8.4 mg/dL (8.5-10.1)
[2023-08-09 07:48] LABS: BLOOD UREA NITROGEN 11.4 mg/dL (7-18)
[2023-08-09 07:50] LABS: CREATININE 1.1 mg/dL (0.55-1.3)
[2023-08-10] MEDS: methaDONE HCL 10 MG TABLET PO ONE (06:30)
[2023-08-10 06:56] LABS: BASO % 0.6 % (0-2.0); EOS % 2.6 % (0-4.5); HEMATOCRIT 31.9 % (35.4-49); HEMOGLOBIN 10.6 GM/dL (11.7-16.9); LYMPH % 21.7 % (8-40); MCH 30.5 pg (25.7-33.7); MCHC 33.4 g/dl (32.0-35.9); MEAN CELL VOLUME 91.4 fl (80-96); MEAN PLT VOLUME 8.6 fl (7.5-11.1); MONO % 9.2 % (3.8-10.2); NEUT % 65.9 % (42.8-82.8); PLATELET COUNT 213 10^3/uL (134-434); RBC 3.49 M/mm3 (4.00-5.60); RDW 14.8 % (11.9-15.9); WHITE BLOOD COUNT 2.6 K/mm3 (4.0-10.0)
[2023-08-10 07:35] LABS: POTASSIUM 3.7 mmol/L (3.5-5.1)
[2023-08-10 07:41] LABS: BLOOD UREA NITROGEN 9.4 mg/dL (7-18); CALCIUM 8.1 mg/dL (8.5-10.1); MAGNESIUM 2.1 mg/dL (1.8-2.4)
[2023-08-10 07:42] LABS: ALBUMIN 2.8 g/dl (3.4-5.0)
[2023-08-10 07:45] LABS: BILIRUBIN,TOTAL 0.4 mg/dL (0.2-1); PHOSPHOROUS 3.5 mg/dL (2.5-4.9); TOT PROT 5.6 g/dl (6.4-8.2)
[2023-08-10] MEDS: THIAMINE 100 MG TABLET PO SCH (09:37)
[2023-08-10] MEDS ORDERED: ACETAMINOPHEN 325 MG TABLET (FP) PO PRN (10:05)
[2023-08-10] MEDS: ACETAMINOPHEN 1000 MG/100 ML BAG IVPB ONE (10:39)
[2023-08-10] MEDS: SULFAMETHOXAZOLE/TRIMETHOPRIM 800MG/160MG D.S. TABLET PO SCH (22:00)
[2023-08-10 23:36] VITALS: BMI 42.9
[2023-08-11 08:26] LABS: BASO % 0.2 % (0-2.0); EOS % 1.4 % (0-4.5); HEMATOCRIT 35.6 % (35.4-49); HEMOGLOBIN 11.8 GM/dL (11.7-16.9); LYMPH % 17.8 % (8-40); MCH 30.4 pg (25.7-33.7); MCHC 33.3 g/dl (32.0-35.9); MEAN CELL VOLUME 91.4 fl (80-96); MEAN PLT VOLUME 8.1 fl (7.5-11.1); MONO % 9.8 % (3.8-10.2); NEUT % 70.8 % (42.8-82.8); PLATELET COUNT 216 10^3/uL (134-434); RBC 3.89 M/mm3 (4.00-5.60); RDW 15.2 % (11.9-15.9); WHITE BLOOD COUNT 3.7 K/mm3 (4.0-10.0)
[2023-08-11 08:45] LABS: POTASSIUM 3.8 mmol/L (3.5-5.1)
[2023-08-11 08:51] LABS: BLOOD UREA NITROGEN 8.6 mg/dL (7-18); CALCIUM 8.8 mg/dL (8.5-10.1)
[2023-08-11 08:55] LABS: CREATININE 0.9 mg/dL (0.55-1.3)
[2023-08-11] MEDS: methaDONE HCL 10 MG TABLET PO ONE (12:48)
[2023-08-11] MEDS: POLYETHYLENE GLYCOL (HEALTHYLAX) 3350 17 GM PACKET PO SCH (14:02)
[2023-08-12] MEDS: SULFAMETHOXAZOLE/TRIMETHOPRIM 800MG/160MG D.S. TABLET PO SCH (10:02)
[2023-08-13] MEDS: levoFLOXacin 500 MG, levoFLOXacin 250 MG PO SCH (09:16)
[2023-08-13] MEDS: ACETAMINOPHEN 1000 MG/100 ML BAG IVPB PRN (21:45)
[2023-08-16 06:12] VITALS: BP 111/65; PULSE 88; RESP 16; TEMP 98.2
== END 2023-08-16 11:25 | DRG 890 ==
LOC: JER 14:12 → JERBED 18:16 → OBSVTOIN 19:53 → J4W 23:53
PROVIDERS: ADMIT Internal Medicine; ATTEND Internal Medicine
DX: J18.9 Pneumonia, unspecified organism (principal); I10 Essential (primary) hypertension; J44.9 Chronic obstructive pulmonary disease, unspecified; E11.9 Type 2 diabetes mellitus without complications; B20 Human immunodeficiency virus [HIV] disease; F31.9 Bipolar disorder, unspecified; F10.20 Alcohol dependence, uncomplicated; F14.20 Cocaine dependence, uncomplicated; J96.01 Acute respiratory failure with hypoxia; E66.01 Morbid (severe) obesity due to excess calories; K59.00 Constipation, unspecified; G93.41 Metabolic encephalopathy; Z68.41 Body mass index [BMI] 40.0-44.9, adult; K21.9 Gastro-esophageal reflux disease without esophagitis; F10.230 Alcohol dependence with withdrawal, uncomplicated; F11.23 Opioid dependence with withdrawal; M16.0 Bilateral primary osteoarthritis of hip; M54.9 Dorsalgia, unspecified
CPT/HCPCS: 0241U-QW; 36415; 71045-TC-FY; 71250-TC; 76700-TC; 80048; 80053; 82140; 82803; 82962; 83735; 84100; 84484; 85025; 85610; 85730; 86140; 86359; 86360; 87040; 87070; 87081; 87186; 87205; 87449; 87536; 87899; 93005; 93010; 94640; 94761; 97116-GP; 97162-GP; 99285-25; G0378; J0131; J3370

== ENCOUNTER 2023-10-31 12:24 | Inpatient (IN) | payer OTHER ==
[2023-10-31 12:50] VITALS: BMI 42.9
[2023-10-31] MEDS ORDERED: DICYCLOMINE HCL 10 MG CAPSULE PO PRN (13:54)
[2023-10-31] MEDS ORDERED: LOPERAMIDE HCL 2 MG CAPSULE PO PRN (13:54)
[2023-10-31] MEDS ORDERED: ACETAMINOPHEN 325 MG TABLET (FP) PO PRN (13:54)
[2023-10-31] MEDS ORDERED: BENZOCAINE/MENTHOL (CHLORASEPTIC ) LOZENGE MM PRN (13:54)
[2023-10-31] MEDS ORDERED: guaiFENesin 600 MG TABLET.ER (FP) PO PRN (13:54)
[2023-10-31] MEDS ORDERED: POLYETHYLENE GLYCOL (HEALTHYLAX) 3350 17 GM PACKET PO PRN (13:54)
[2023-10-31] MEDS ORDERED: MAGNESIUM HYDROX 2400MG/30ML ORAL SUSPENSION 30 ML CUP PO PRN (13:54)
[2023-10-31] MEDS ORDERED: NALOXONE HCL 0.4 MG/ML VIAL IM PRN (13:54)
[2023-10-31] MEDS ORDERED: BENZONATATE 200 MG CAPSULE PO PRN (13:54)
[2023-10-31] MEDS ORDERED: NALOXONE (NARCAN) HCL 4 MG/0.1 ML SPRAY NS PRN (13:54)
[2023-10-31] MEDS ORDERED: ONDANSETRON *ODT* 4 MG TABLET SL PRN (13:54)
[2023-10-31] MEDS ORDERED: BISMUTH SUBSALICYLATE 524 MG/30 ML PO PRN (13:54)
[2023-10-31] MEDS ORDERED: IBUPROFEN 400 MG TABLET (FP) PO PRN (13:54)
[2023-10-31] MEDS: hydrOXYzine PAMOATE 25 MG CAPSULE (FP) PO PRN (21:57)
[2023-10-31] MEDS: MELATONIN 5 MG TABLETS PO SCH (21:57)
[2023-10-31] MEDS: METHOCARBAMOL 500 MG TABLET PO PRN (21:57)
[2023-10-31] MEDS: THIAMINE 100 MG TABLET PO SCH (21:57)
[2023-11-01] MEDS: IBUPROFEN 600 MG TABLET (FP) PO PRN (06:15)
[2023-11-01] MEDS: NICOTINE 14 MG/24 HOURS TOPICAL PATCH TD SCH (10:03)
[2023-11-01] MEDS: PRENATAL VITAMINS W/ FOLIC ACID TABLET (FP) PO SCH (10:03)
[2023-11-01] MEDS: BICTEGRAV/EMTRICIT/TENOFOV (BIKTARVY) 50-200-25 MG TABLET PO SCH (11:31)
[2023-11-01 14:12] LABS: HEMOGLOBIN 11.9 GM/dL (11.7-16.9); MCH 29.1 pg (25.7-33.7); MEAN CELL VOLUME 88.1 fl (80-96); MEAN PLT VOLUME 9.5 fl (7.5-11.1); PLATELET COUNT 196 10^3/uL (134-434); RBC 4.08 M/mm3 (4.00-5.60); RDW 16.5 % (11.9-15.9); WHITE BLOOD COUNT 3.5 K/mm3 (4.0-10.0)
[2023-11-01 14:13] LABS: CHLORIDE 108 mmol/L (98-107); POTASSIUM 4.3 mmol/L (3.5-5.1); SODIUM 139 mmol/L (136-145)
[2023-11-01 14:18] LABS: ANION GAP 4 mmol/L (4-13); BLOOD UREA NITROGEN 15.8 mg/dL (7-18); CALCIUM 8.7 mg/dL (8.5-10.1); CO2 27 mmol/L (21-32)
[2023-11-01 14:19] LABS: ALBUMIN 3.2 g/dl (3.4-5.0); GLUCOSE,RANDOM 117 mg/dL (74-106)
[2023-11-01 14:22] LABS: SGOT/AST 31 U/L (15-37)
[2023-11-01 14:23] LABS: BILIRUBIN,TOTAL 0.4 mg/dL (0.2-1)
[2023-11-01 14:24] LABS: ALK PHOS 93 U/L (45-117); SGPT/ALT 40 U/L (13-61)
[2023-11-01] MEDS: QUEtiapine FUMARATE 100 MG TABLET (FP) PO SCH (22:00)
[2023-11-01] MEDS ORDERED: QUEtiapine FUMARATE 200 MG TABLET PO SCH (22:00)
[2023-11-02] MEDS: MAG HYDROX/AL HYDROX/SIMETH 30 ML UNIT-DOSE CUP PO PRN (10:39)
[2023-11-02] MEDS: NICOTINE POLACRILEX 2 MG GUM BUC PRN (10:39)
[2023-11-02] MEDS: PANTOPRAZOLE 40 MG TABLET PO SCH (15:41)
[2023-11-03 06:45] VITALS: TEMP 97.6
[2023-11-03 09:25] VITALS: BP 123/74; PULSE 81; RESP 18
== END 2023-11-03 14:18 | disposition other institution (70) | DRG 773 ==
LOC: YASAS 12:24 → Y3N 13:20
PROVIDERS: ADMIT Allergy & Immunology; ATTEND Surgery
PROC: HZ2ZZZZ Detoxification Services for Substance Abuse Treatment (ICD-10-PCS; principal; 2023-10-31)
DX: F11.23 Opioid dependence with withdrawal (principal); F10.230 Alcohol dependence with withdrawal, uncomplicated; F14.20 Cocaine dependence, uncomplicated; F17.210 Nicotine dependence, cigarettes, uncomplicated; F31.9 Bipolar disorder, unspecified; Z21 Asymptomatic human immunodeficiency virus [HIV] infection status; G47.00 Insomnia, unspecified; I10 Essential (primary) hypertension; K21.9 Gastro-esophageal reflux disease without esophagitis; E11.9 Type 2 diabetes mellitus without complications; Z79.4 Long term (current) use of insulin; M16.0 Bilateral primary osteoarthritis of hip; Z99.3 Dependence on wheelchair
CPT/HCPCS: 36415; 80053; 80305; 80307; 85027; 86593; 86780; 93005; 93010

== ENCOUNTER 2023-11-03 12:36 | Inpatient (IN) | payer OTHER ==
[2023-11-03] MEDS ORDERED: BENZONATATE 200 MG CAPSULE PO PRN (16:04)
[2023-11-03] MEDS ORDERED: IBUPROFEN 400 MG TABLET (FP) PO PRN (16:04)
[2023-11-03] MEDS ORDERED: POLYETHYLENE GLYCOL (HEALTHYLAX) 3350 17 GM PACKET PO PRN (16:04)
[2023-11-03] MEDS ORDERED: guaiFENesin 600 MG TABLET.ER (FP) PO PRN (16:04)
[2023-11-03] MEDS ORDERED: BENZOCAINE/MENTHOL (CHLORASEPTIC ) LOZENGE MM PRN (16:04)
[2023-11-03] MEDS ORDERED: MAGNESIUM HYDROX 2400MG/30ML ORAL SUSPENSION 30 ML CUP PO PRN (16:04)
[2023-11-03] MEDS ORDERED: LOPERAMIDE HCL 2 MG CAPSULE PO PRN (16:04)
[2023-11-03] MEDS ORDERED: NALOXONE (NYS OPIOID OVERDOSE PROGRAM) 4 MG/0.1 ML SPRAY NS PRN (16:04)
[2023-11-03] MEDS ORDERED: NALOXONE HCL 0.4 MG/ML VIAL IVPUSH PRN (16:04)
[2023-11-03] MEDS ORDERED: ACETAMINOPHEN 325 MG TABLET (FP) PO PRN (16:04)
[2023-11-03] MEDS ORDERED: hydrOXYzine PAMOATE 25 MG CAPSULE (FP) PO PRN (16:04)
[2023-11-03] MEDS: MELATONIN 5 MG TABLETS PO SCH (21:25)
[2023-11-03] MEDS: THIAMINE 100 MG TABLET PO SCH (21:25)
[2023-11-03] MEDS: METHOCARBAMOL 500 MG TABLET PO PRN (21:25)
[2023-11-03] MEDS: QUEtiapine FUMARATE 100 MG TABLET (FP) PO SCH (21:25)
[2023-11-04] MEDS: PRENATAL VITAMINS W/ FOLIC ACID TABLET (FP) PO SCH ×2 (06:16→12:12)
[2023-11-04] MEDS: MAG HYDROX/AL HYDROX/SIMETH 30 ML UNIT-DOSE CUP PO PRN (09:12)
[2023-11-04] MEDS ORDERED: IBUPROFEN 400 MG TABLET (FP) PO PRN (11:03)
[2023-11-04] MEDS ORDERED: MAG HYDROX/AL HYDROX/SIMETH 30 ML UNIT-DOSE CUP PO PRN (11:03)
[2023-11-04] MEDS ORDERED: NALOXONE (NYS OPIOID OVERDOSE PROGRAM) 4 MG/0.1 ML SPRAY NS PRN (11:03)
[2023-11-04] MEDS ORDERED: MAGNESIUM HYDROX 2400MG/30ML ORAL SUSPENSION 30 ML CUP PO PRN (11:03)
[2023-11-04] MEDS ORDERED: hydrOXYzine PAMOATE 25 MG CAPSULE (FP) PO PRN (11:03)
[2023-11-04] MEDS ORDERED: IBUPROFEN 600 MG TABLET (FP) PO PRN (11:03)
[2023-11-04] MEDS ORDERED: LOPERAMIDE HCL 2 MG CAPSULE PO PRN (11:03)
[2023-11-04] MEDS ORDERED: METHOCARBAMOL 500 MG TABLET PO PRN (11:03)
[2023-11-04] MEDS ORDERED: guaiFENesin 600 MG TABLET.ER (FP) PO PRN (11:03)
[2023-11-04] MEDS ORDERED: BENZONATATE 200 MG CAPSULE PO PRN (11:03)
[2023-11-04] MEDS ORDERED: NALOXONE HCL 0.4 MG/ML VIAL IVPUSH PRN (11:03)
[2023-11-04] MEDS ORDERED: ACETAMINOPHEN 325 MG TABLET (FP) PO PRN (11:03)
[2023-11-04] MEDS ORDERED: POLYETHYLENE GLYCOL (HEALTHYLAX) 3350 17 GM PACKET PO PRN (11:03)
[2023-11-04] MEDS ORDERED: BENZOCAINE/MENTHOL (CHLORASEPTIC ) LOZENGE MM PRN (11:03)
[2023-11-04] MEDS ORDERED: CHOLECALCIFEROL (VIT D3) 400 UNIT (10 MCG) TABLET PO SCH (11:15)
[2023-11-04] MEDS ORDERED: PANTOPRAZOLE 40 MG TABLET PO SCH ×2 (12:03→22:00)
[2023-11-04] MEDS ORDERED: BICTEGRAV/EMTRICIT/TENOFOV (BIKTARVY) 50-200-25 MG TABLET PO SCH (12:03)
[2023-11-04] MEDS: ERGOCALCIFEROL (VIT D2) 50,000 UNIT (1.25 MG) CAPSULE PO SCH (15:09)
[2023-11-04] MEDS: BETAMETHASONE VALER 0.1% OINT 15 GM TUBE TP SCH (15:09)
[2023-11-04] MEDS: BICTEGRAV/EMTRICIT/TENOFOV (BIKTARVY) 50-200-25 MG TABLET PO ONE (15:12)
[2023-11-04] MEDS: BISMUTH SUBSALICYLATE 524 MG/30 ML PO ONE (19:36)
[2023-11-04] MEDS: QUEtiapine FUMARATE 200 MG TABLET PO SCH (21:32)
[2023-11-04] MEDS: PANTOPRAZOLE 40 MG TABLET PO SCH (21:32)
[2023-11-04] MEDS: ATORVASTATIN CA 20 MG TABLET (FP) PO SCH (21:32)
[2023-11-04] MEDS: BUDESONIDE/FORMETEROL FUMARATE 80/4.5 mcg INHALER IH SCH (21:33)
[2023-11-04] MEDS ORDERED: MELATONIN 5 MG TABLETS PO SCH (22:00)
[2023-11-04] MEDS ORDERED: THIAMINE 100 MG TABLET PO SCH (22:00)
[2023-11-05] MEDS: BICTEGRAV/EMTRICIT/TENOFOV (BIKTARVY) 50-200-25 MG TABLET PO SCH (07:26)
[2023-11-05] MEDS ORDERED: BICTEGRAV/EMTRICIT/TENOFOV (BIKTARVY) 50-200-25 MG TABLET PO SCH (08:00)
[2023-11-05] MEDS: ASPIRIN COATED 81 MG TABLET.EC PO SCH (09:37)
[2023-11-05] MEDS: SULFAMETHOXAZOLE/TRIMETHOPRIM 800MG/160MG D.S. TABLET PO SCH (09:37)
[2023-11-05] MEDS: FOLIC ACID 1 MG TABLET (FP) PO SCH (09:38)
[2023-11-05] MEDS: NIFEdipine E.R 60 MG TABLET PO SCH (09:38)
[2023-11-05] MEDS ORDERED: SULFAMETHOXAZOLE/TRIMETHOPRIM 800MG/160MG D.S. TABLET PO SCH (10:00)
[2023-11-05] MEDS ORDERED: NIFEdipine E.R 60 MG TABLET PO SCH (10:00)
[2023-11-05] MEDS ORDERED: FOLIC ACID 1 MG TABLET (FP) PO SCH (10:00)
[2023-11-05] MEDS ORDERED: PANTOPRAZOLE 40 MG TABLET PO SCH (10:00)
[2023-11-05] MEDS ORDERED: ASPIRIN COATED 81 MG TABLET.EC PO SCH (10:00)
[2023-11-06] MEDS: GABAPENTIN 100 MG CAPSULE PO SCH (14:38)
[2023-11-10] MEDS: ALBUTEROL SO4 HFA INHALER IH PRN (05:50)
[2023-11-11] MEDS: NICOTINE POLACRILEX 4 MG GUM BUC PRN (14:00)
[2023-11-12] MEDS: IBUPROFEN 600 MG TABLET (FP) PO PRN (12:44)
[2023-11-12] MEDS: AMOX TR/POT CLAV 500MG/125MG TABLETS (FP) PO SCH (16:53)
[2023-11-26 07:19] VITALS: TEMP 97.7
[2023-11-27 07:08] VITALS: BP 127/83; PULSE 71; RESP 16
== END 2023-11-27 07:36 | disposition home or self-care (01) | DRG 772 ==
LOC: YASAS 12:36 → Y3NR 12:37 → Y3W 11-04 14:06
PROVIDERS: ADMIT Allergy & Immunology; ATTEND Psychiatry & Neurology Pain Medicine
PROC: HZ42ZZZ Group Counseling for Substance Abuse Treatment, Cognitive-Behavioral (ICD-10-PCS; principal; 2023-11-03)
DX: F11.20 Opioid dependence, uncomplicated (principal); F10.20 Alcohol dependence, uncomplicated; F14.20 Cocaine dependence, uncomplicated; F17.210 Nicotine dependence, cigarettes, uncomplicated; F25.9 Schizoaffective disorder, unspecified; F19.282 Other psychoactive substance dependence with psychoactive substance-induced sleep disorder; F19.280 Other psychoactive substance dependence with psychoactive substance-induced anxiety disorder; F19.24 Other psychoactive substance dependence with psychoactive substance-induced mood disorder; B20 Human immunodeficiency virus [HIV] disease; I10 Essential (primary) hypertension; J45.909 Unspecified asthma, uncomplicated; E11.9 Type 2 diabetes mellitus without complications; Z79.4 Long term (current) use of insulin; Z79.899 Other long term (current) drug therapy; Z99.89 Dependence on other enabling machines and devices
CPT/HCPCS: 36415; 82962; 86359; 86360; 87536; 87811

== ENCOUNTER 2024-01-03 16:49 | Inpatient (IN) | payer OTHER ==
[2024-01-03 17:34] VITALS: BMI 41.1
[2024-01-03] MEDS ORDERED: BISMUTH SUBSALICYLATE 524 MG/30 ML PO PRN (23:07)
[2024-01-03] MEDS ORDERED: NICOTINE POLACRILEX 2 MG GUM BUC PRN (23:07)
[2024-01-03] MEDS ORDERED: POLYETHYLENE GLYCOL (HEALTHYLAX) 3350 17 GM PACKET PO PRN (23:07)
[2024-01-03] MEDS ORDERED: BENZOCAINE/MENTHOL (CHLORASEPTIC ) LOZENGE MM PRN (23:07)
[2024-01-03] MEDS ORDERED: NALOXONE HCL 0.4 MG/ML VIAL IM PRN (23:07)
[2024-01-03] MEDS ORDERED: METHOCARBAMOL 500 MG TABLET PO PRN (23:07)
[2024-01-03] MEDS ORDERED: NALOXONE (NARCAN) HCL 4 MG/0.1 ML SPRAY NS PRN (23:07)
[2024-01-03] MEDS ORDERED: BENZONATATE 200 MG CAPSULE PO PRN (23:07)
[2024-01-03] MEDS ORDERED: hydrOXYzine PAMOATE 25 MG CAPSULE (FP) PO PRN (23:07)
[2024-01-03] MEDS ORDERED: DICYCLOMINE HCL 10 MG CAPSULE PO PRN (23:07)
[2024-01-03] MEDS ORDERED: guaiFENesin 600 MG TABLET.ER (FP) PO PRN (23:07)
[2024-01-03] MEDS ORDERED: MAGNESIUM HYDROX 2400MG/30ML ORAL SUSPENSION 30 ML CUP PO PRN (23:07)
[2024-01-03] MEDS ORDERED: IBUPROFEN 400 MG TABLET (FP) PO PRN (23:07)
[2024-01-03] MEDS ORDERED: LOPERAMIDE HCL 2 MG CAPSULE PO PRN (23:07)
[2024-01-03] MEDS ORDERED: ONDANSETRON *ODT* 4 MG TABLET SL PRN (23:07)
[2024-01-04] MEDS: NICOTINE 21 MG/24 HOURS TOPICAL PATCH TD SCH (10:14)
[2024-01-04] MEDS: MAG HYDROX/AL HYDROX/SIMETH 30 ML UNIT-DOSE CUP PO PRN (10:15)
[2024-01-04] MEDS: PRENATAL VITAMINS W/ FOLIC ACID TABLET (FP) PO SCH (10:15)
[2024-01-04] MEDS ORDERED: cloNIDine HCL 0.1 MG TABLET PO PRN (10:22)
[2024-01-04] MEDS ORDERED: diazePAM 5 MG TABLET PO PRN (10:22)
[2024-01-04] MEDS: methaDONE HCL 10 MG TABLET (FOR DETOX USE ONLY) PO ONE (10:54)
[2024-01-04] MEDS: diazePAM 5 MG TABLET PO SCH (10:54)
[2024-01-04 14:12] LABS: HEMATOCRIT 34.7 % (35.4-49); HEMOGLOBIN 11.6 GM/dL (11.7-16.9); MCH 29.3 pg (25.7-33.7); MCHC 33.3 g/dl (32.0-35.9); MEAN CELL VOLUME 88.1 fl (80-96); PLATELET COUNT 191 10^3/uL (134-434); RBC 3.94 M/mm3 (4.00-5.60); RDW 16.8 % (11.9-15.9); WHITE BLOOD COUNT 6.9 K/mm3 (4.0-10.0)
[2024-01-04 14:17] LABS: CHLORIDE 103 mmol/L (98-107); POTASSIUM 3.4 mmol/L (3.5-5.1); SODIUM 137 mmol/L (136-145)
[2024-01-04 14:21] LABS: ALBUMIN 3.1 g/dl (3.4-5.0); CALCIUM 8.5 mg/dL (8.5-10.1)
[2024-01-04 14:22] LABS: ANION GAP 5 mmol/L (4-13); BLOOD UREA NITROGEN 13.9 mg/dL (7-18); CO2 30 mmol/L (21-32); GLUCOSE,RANDOM 153 mg/dL (74-106)
[2024-01-04 14:24] LABS: SGOT/AST 29 U/L (15-37); SGPT/ALT 39 U/L (13-61)
[2024-01-04 14:26] LABS: TOT PROT 6.2 g/dl (6.4-8.2)
[2024-01-04 14:27] LABS: ALK PHOS 96 U/L (45-117)
[2024-01-04] MEDS: POTASSIUM CHLORIDE ORAL LIQUID 20 MEQ/15 ML PO ONE (19:15)
[2024-01-04] MEDS: BICTEGRAV/EMTRICIT/TENOFOV (BIKTARVY) 50-200-25 MG TABLET PO SCH (19:16)
[2024-01-04] MEDS: MELATONIN 5 MG TABLETS PO SCH (22:34)
[2024-01-04] MEDS: QUEtiapine FUMARATE 100 MG TABLET (FP) PO SCH (22:34)
[2024-01-04] MEDS: THIAMINE 100 MG TABLET PO SCH (22:34)
[2024-01-04] MEDS: ATORVASTATIN CA 20 MG TABLET (FP) PO SCH (22:34)
[2024-01-04] MEDS: PANTOPRAZOLE 40 MG TABLET PO SCH (22:34)
[2024-01-04] MEDS: BUDESONIDE/FORMETEROL FUMARATE 80/4.5 mcg INHALER IH SCH (22:38)
[2024-01-04] MEDS: POTASSIUM CHLORIDE ORAL LIQUID 20 MEQ/15 ML PO SCH (22:38)
[2024-01-05] MEDS: ASPIRIN COATED 81 MG TABLET.EC PO SCH (10:30)
[2024-01-05] MEDS: NIFEdipine E.R 60 MG TABLET PO SCH (12:42)
[2024-01-05] MEDS: IBUPROFEN 600 MG TABLET (FP) PO PRN (17:49)
[2024-01-05] MEDS: ACETAMINOPHEN 325 MG TABLET (FP) PO PRN (22:05)
[2024-01-06] MEDS: diazePAM 5 MG TABLET PO SCH (06:28)
[2024-01-06] MEDS: SULFAMETHOXAZOLE/TRIMETHOPRIM 800MG/160MG D.S. TABLET PO SCH (09:36)
[2024-01-06] MEDS: methaDONE HCL 10 MG TABLET (FOR DETOX USE ONLY) PO ONE (10:56)
[2024-01-06] MEDS: ACAMPROSATE CALCIUM 333 MG TABLET.DR PO SCH (13:33)
[2024-01-06] MEDS: GABAPENTIN 100 MG CAPSULE PO SCH (13:33)
[2024-01-07] MEDS: diazePAM 5 MG TABLET PO SCH (05:32)
[2024-01-08] MEDS: diazePAM 5 MG TABLET PO ONE (06:13)
[2024-01-08] MEDS: methaDONE HCL 10 MG TABLET (FOR DETOX USE ONLY) PO ONE (09:47)
[2024-01-08] MEDS: BETAMETHASONE DIPR 0.05% OINT 45 GM TUBE TP SCH (14:57)
[2024-01-09] MEDS: ALBUTEROL SO4 HFA INHALER IH PRN (06:26)
[2024-01-10 08:51] VITALS: BP 133/75; PULSE 91; RESP 18; TEMP 98.1
== END 2024-01-10 08:54 | disposition home or self-care (01) | DRG 773 ==
LOC: YASAS 16:49 → Y3N 23:33
PROVIDERS: ADMIT Allergy & Immunology; ATTEND Family Medicine Addiction Medicine
PROC: HZ2ZZZZ Detoxification Services for Substance Abuse Treatment (ICD-10-PCS; principal; 2024-01-03)
DX: F11.23 Opioid dependence with withdrawal (principal); F10.230 Alcohol dependence with withdrawal, uncomplicated; F14.20 Cocaine dependence, uncomplicated; F17.210 Nicotine dependence, cigarettes, uncomplicated; B20 Human immunodeficiency virus [HIV] disease; E78.5 Hyperlipidemia, unspecified; I25.10 Atherosclerotic heart disease of native coronary artery without angina pectoris; I10 Essential (primary) hypertension; J45.909 Unspecified asthma, uncomplicated; E11.9 Type 2 diabetes mellitus without complications; Z79.4 Long term (current) use of insulin; R76.8 Other specified abnormal immunological findings in serum; Z86.19 Personal history of other infectious and parasitic diseases; Z79.899 Other long term (current) drug therapy; Z88.8 Allergy status to other drugs, medicaments and biological substances
CPT/HCPCS: 36415; 80053; 80305; 80307; 85027; 86593; 86780; 93005; 93010

== ENCOUNTER 2024-02-12 12:01 | Inpatient (IN) | payer OTHER ==
[2024-02-12 12:36] VITALS: BMI 42.9
[2024-02-12] MEDS ORDERED: NICOTINE POLACRILEX 2 MG LOZENGE BC PRN (13:17)
[2024-02-12] MEDS ORDERED: guaiFENesin 600 MG TABLET.ER (FP) PO PRN (13:17)
[2024-02-12] MEDS ORDERED: ACETAMINOPHEN 325 MG TABLET (FP) PO PRN (13:17)
[2024-02-12] MEDS ORDERED: BISMUTH SUBSALICYLATE 262 MG/15 ML BTL PO PRN (13:17)
[2024-02-12] MEDS ORDERED: POLYETHYLENE GLYCOL (HEALTHYLAX) 3350 17 GM PACKET PO PRN (13:17)
[2024-02-12] MEDS ORDERED: ONDANSETRON *ODT* 4 MG TABLET SL PRN (13:17)
[2024-02-12] MEDS ORDERED: MAGNESIUM HYDROX 2400MG/30ML ORAL SUSPENSION 30 ML CUP PO PRN (13:17)
[2024-02-12] MEDS ORDERED: IBUPROFEN 400 MG TABLET (FP) PO PRN (13:17)
[2024-02-12] MEDS ORDERED: LOPERAMIDE HCL 2 MG CAPSULE PO PRN (13:17)
[2024-02-12] MEDS ORDERED: NICOTINE POLACRILEX 2 MG GUM BUC PRN (13:17)
[2024-02-12] MEDS ORDERED: BENZOCAINE/MENTHOL (CHLORASEPTIC ) LOZENGE MM PRN (13:17)
[2024-02-12] MEDS ORDERED: BENZONATATE 200 MG CAPSULE PO PRN (13:17)
[2024-02-12] MEDS ORDERED: DICYCLOMINE HCL 10 MG CAPSULE PO PRN (13:17)
[2024-02-12] MEDS: ACAMPROSATE CALCIUM 333 MG TABLET.DR PO SCH (14:50)
[2024-02-12] MEDS: diazePAM 5 MG TABLET PO SCH (17:59)
[2024-02-12] MEDS: PANTOPRAZOLE 40 MG TABLET PO SCH (17:59)
[2024-02-12] MEDS: ATORVASTATIN CA 20 MG TABLET (FP) PO SCH (22:59)
[2024-02-12] MEDS: THIAMINE 100 MG TABLET PO SCH (22:59)
[2024-02-12] MEDS: MELATONIN 5 MG TABLETS PO SCH (23:00)
[2024-02-12] MEDS: BUDESONIDE/FORMETEROL FUMARATE 80/4.5 mcg INHALER IH SCH (23:05)
[2024-02-13] MEDS: diazePAM 5 MG TABLET PO SCH ×2 (06:15→17:39)
[2024-02-13] MEDS: BICTEGRAV/EMTRICIT/TENOFOV (BIKTARVY) 50-200-25 MG TABLET PO SCH (09:31)
[2024-02-13] MEDS: ASPIRIN COATED 81 MG TABLET.EC PO SCH (10:10)
[2024-02-13] MEDS: PRENATAL VITAMINS W/ FOLIC ACID TABLET (FP) PO SCH (10:10)
[2024-02-13] MEDS: diazePAM 5 MG TABLET PO PRN (10:11)
[2024-02-13] MEDS: IBUPROFEN 600 MG TABLET (FP) PO PRN (10:13)
[2024-02-13] MEDS: BETAMETHASONE DIPR 0.05% OINT 45 GM TUBE TP SCH (10:48)
[2024-02-13] MEDS: GABAPENTIN 100 MG CAPSULE PO SCH (13:48)
[2024-02-13 15:13] LABS: HEMATOCRIT 37.9 % (35.4-49); HEMOGLOBIN 12.2 GM/dL (11.7-16.9); MCH 29.1 pg (25.7-33.7); MCHC 32.1 g/dl (32.0-35.9); MEAN CELL VOLUME 90.7 fl (80-96); MEAN PLT VOLUME 9.9 fl (7.5-11.1); PLATELET COUNT 241 10^3/uL (134-434); RBC 4.18 M/mm3 (4.00-5.60); RDW 15.9 % (11.9-15.9); WHITE BLOOD COUNT 5.1 K/mm3 (4.0-10.0)
[2024-02-13 16:14] LABS: CHLORIDE 109 mmol/L (98-107); SODIUM 143 mmol/L (136-145)
[2024-02-13 16:16] LABS: ALBUMIN 3.4 g/dl (3.4-5.0); ANION GAP 7 mmol/L (4-13); BLOOD UREA NITROGEN 13.4 mg/dL (7-18); CALCIUM 9.3 mg/dL (8.5-10.1); CO2 26 mmol/L (21-32)
[2024-02-13 16:17] LABS: GLUCOSE,RANDOM 139 mg/dL (74-106)
[2024-02-13 16:19] LABS: SGOT/AST 18 U/L (15-37); SGPT/ALT 28 U/L (13-61)
[2024-02-13 16:21] LABS: BILIRUBIN,TOTAL 0.7 mg/dL (0.2-1); TOT PROT 6.4 g/dl (6.4-8.2)
[2024-02-13 16:22] LABS: ALK PHOS 95 U/L (45-117)
[2024-02-13] MEDS: QUEtiapine FUMARATE 200 MG TABLET PO SCH (22:55)
[2024-02-14] MEDS ORDERED: diazePAM 5 MG TABLET PO SCH (06:00)
[2024-02-14] MEDS: MAG HYDROX/AL HYDROX/SIMETH 30 ML UNIT-DOSE CUP PO PRN (06:33)
[2024-02-14] MEDS: METHOCARBAMOL 500 MG TABLET PO PRN (15:04)
[2024-02-15] MEDS: diazePAM 5 MG TABLET PO SCH (05:41)
[2024-02-15] MEDS ORDERED: diazePAM 5 MG TABLET PO ONE (06:00)
[2024-02-16] MEDS: diazePAM 5 MG TABLET PO SCH (05:20)
[2024-02-16] MEDS: diazePAM 5 MG TABLET PO PRN (09:10)
[2024-02-16] MEDS: ALBUTEROL SO4 HFA INHALER IH PRN (15:54)
[2024-02-17] MEDS: diazePAM 5 MG TABLET PO ONE (05:41)
[2024-02-17 06:42] VITALS: BP 137/76; PULSE 83; RESP 17; TEMP 98.1
== END 2024-02-17 09:15 | disposition home or self-care (01) | DRG 774 ==
LOC: YASAS 12:01 → Y3N 13:42
PROVIDERS: ADMIT Allergy & Immunology; ATTEND Surgery
PROC: HZ2ZZZZ Detoxification Services for Substance Abuse Treatment (ICD-10-PCS; principal; 2024-02-12)
DX: F10.230 Alcohol dependence with withdrawal, uncomplicated (principal); F14.20 Cocaine dependence, uncomplicated; F17.210 Nicotine dependence, cigarettes, uncomplicated; Z21 Asymptomatic human immunodeficiency virus [HIV] infection status; I25.10 Atherosclerotic heart disease of native coronary artery without angina pectoris; I10 Essential (primary) hypertension; J45.909 Unspecified asthma, uncomplicated; K21.9 Gastro-esophageal reflux disease without esophagitis; E78.5 Hyperlipidemia, unspecified; M79.2 Neuralgia and neuritis, unspecified; L80 Vitiligo; M16.0 Bilateral primary osteoarthritis of hip; M54.50 Low back pain, unspecified; G89.29 Other chronic pain; Z88.8 Allergy status to other drugs, medicaments and biological substances
CPT/HCPCS: 36415; 80053; 80305; 80307; 82962; 85027

== ENCOUNTER 2024-05-28 12:29 | Inpatient (IN) | payer OTHER ==
[2024-05-28] MEDS ORDERED: NALOXONE (NARCAN) HCL 4 MG/0.1 ML SPRAY NS PRN (13:33)
[2024-05-28] MEDS ORDERED: IBUPROFEN 600 MG TABLET (FP) PO PRN (13:33)
[2024-05-28] MEDS ORDERED: POLYETHYLENE GLYCOL (HEALTHYLAX) 3350 17 GM PACKET PO PRN (13:33)
[2024-05-28] MEDS ORDERED: ACETAMINOPHEN 325 MG TABLET (FP) PO PRN (13:33)
[2024-05-28] MEDS ORDERED: DICYCLOMINE HCL 10 MG CAPSULE PO PRN (13:33)
[2024-05-28] MEDS ORDERED: MAGNESIUM HYDROX 2400MG/30ML ORAL SUSPENSION 30 ML CUP PO PRN (13:33)
[2024-05-28] MEDS ORDERED: MAG HYDROX/AL HYDROX/SIMETH 30 ML UNIT-DOSE CUP PO PRN (13:33)
[2024-05-28] MEDS ORDERED: BENZOCAINE/MENTHOL (CHLORASEPTIC ) LOZENGE MM PRN (13:33)
[2024-05-28] MEDS ORDERED: BISMUTH SUBSALICYLATE 262 MG/15 ML BTL PO PRN (13:33)
[2024-05-28] MEDS ORDERED: LOPERAMIDE HCL 2 MG CAPSULE PO PRN (13:33)
[2024-05-28] MEDS ORDERED: hydrOXYzine PAMOATE 25 MG CAPSULE (FP) PO PRN (13:33)
[2024-05-28] MEDS ORDERED: IBUPROFEN 400 MG TABLET (FP) PO PRN (13:33)
[2024-05-28] MEDS ORDERED: chlordiazePOXIDE HCL 25 MG CAPSULE PO PRN (13:33)
[2024-05-28] MEDS ORDERED: guaiFENesin 600 MG TABLET.ER (FP) PO PRN (13:33)
[2024-05-28] MEDS ORDERED: BENZONATATE 200 MG CAPSULE PO PRN (13:33)
[2024-05-28] MEDS ORDERED: METHOCARBAMOL 500 MG TABLET PO PRN (13:33)
[2024-05-28] MEDS ORDERED: ONDANSETRON *ODT* 4 MG TABLET SL PRN (13:33)
[2024-05-28] MEDS: BICTEGRAV/EMTRICIT/TENOFOV (BIKTARVY) 50-200-25 MG TABLET PO SCH (14:40)
[2024-05-28] MEDS: GABAPENTIN 300 MG CAPSULE PO SCH (14:40)
[2024-05-28] MEDS: ACAMPROSATE CALCIUM 333 MG TABLET.DR PO SCH (14:40)
[2024-05-28] MEDS: PRENATAL VITAMINS W/ FOLIC ACID TABLET (FP) PO SCH (14:40)
[2024-05-28] MEDS ORDERED: cloNIDine HCL 0.1 MG TABLET PO PRN (15:59)
[2024-05-28] MEDS: chlordiazePOXIDE HCL 25 MG CAPSULE PO SCH (17:14)
[2024-05-28] MEDS: metFORMIN HCL 500 MG TABLET (FP) PO SCH (17:14)
[2024-05-28] MEDS: MELATONIN 5 MG TABLETS PO SCH (22:25)
[2024-05-28] MEDS: PANTOPRAZOLE 40 MG TABLET PO SCH (22:26)
[2024-05-28] MEDS: THIAMINE 100 MG TABLET PO SCH (22:26)
[2024-05-28] MEDS: ATORVASTATIN CA 20 MG TABLET (FP) PO SCH (22:26)
[2024-05-28] MEDS: BETAMETHASONE DIP 0.05% TP LOTION 30 ML BOTTLE TP SCH (22:27)
[2024-05-28] MEDS: BUDESONIDE/FORMETEROL FUMARATE 80/4.5 mcg INHALER IH SCH (22:27)
[2024-05-29] MEDS: chlordiazePOXIDE HCL 10 MG CAPSULE PO SCH (05:32)
[2024-05-29] MEDS ORDERED: methaDONE HCL 10 MG TABLET (FOR DETOX USE ONLY) PO ONE (10:00)
[2024-05-29] MEDS: ASPIRIN 81 MG CHEWABLE TABLETS PO SCH (10:09)
[2024-05-29] MEDS: methaDONE HCL 10 MG TABLET (FOR DETOX USE ONLY) PO ONE (10:11)
[2024-05-29] MEDS: NIFEdipine E.R 60 MG TABLET PO SCH (10:12)
[2024-05-29] MEDS ORDERED: ALBUTEROL SO4 HFA INHALER IH PRN (14:12)
[2024-05-29] MEDS: QUEtiapine FUMARATE 100 MG TABLET (FP) PO SCH (22:17)
[2024-05-30] MEDS: chlordiazePOXIDE HCL 10 MG CAPSULE PO SCH (06:10)
[2024-05-30] MEDS: methaDONE HCL 10 MG TABLET (FOR DETOX USE ONLY) PO ONE (09:39)
[2024-05-30] MEDS ORDERED: methaDONE HCL 10 MG TABLET (FOR DETOX USE ONLY) PO ONE (10:00)
[2024-05-31] MEDS ORDERED: chlordiazePOXIDE HCL 10 MG CAPSULE PO PRN
[2024-05-31] MEDS: chlordiazePOXIDE HCL 10 MG CAPSULE PO ONE (05:27)
[2024-05-31 12:53] VITALS: PULSE 90
[2024-05-31 16:32] VITALS: BP 110/62; RESP 16; TEMP 96.9
[2024-06-01] MEDS ORDERED: methaDONE HCL 10 MG TABLET (FOR DETOX USE ONLY) PO ONE (10:00)
== END 2024-05-31 18:18 | disposition other institution (70) | DRG 773 ==
LOC: YASAS 12:29 → Y6N 13:54 → Y3N 13:58
PROVIDERS: ADMIT Allergy & Immunology; ATTEND Allergy & Immunology
PROC: HZ2ZZZZ Detoxification Services for Substance Abuse Treatment (ICD-10-PCS; principal; 2024-05-28)
DX: F11.23 Opioid dependence with withdrawal (principal); F10.230 Alcohol dependence with withdrawal, uncomplicated; F17.210 Nicotine dependence, cigarettes, uncomplicated; F31.9 Bipolar disorder, unspecified; F41.9 Anxiety disorder, unspecified; Z21 Asymptomatic human immunodeficiency virus [HIV] infection status; I10 Essential (primary) hypertension; J45.909 Unspecified asthma, uncomplicated; K21.9 Gastro-esophageal reflux disease without esophagitis; E78.5 Hyperlipidemia, unspecified; E11.9 Type 2 diabetes mellitus without complications; Z79.84 Long term (current) use of oral hypoglycemic drugs; M16.0 Bilateral primary osteoarthritis of hip; Z79.899 Other long term (current) drug therapy; Z88.8 Allergy status to other drugs, medicaments and biological substances
CPT/HCPCS: 80305; 82962; 87811